=== PATIENT | male | born 1955 | race Caucasian/White ===

== ENCOUNTER → 2016-11-03 | Outpatient (CLI) | payer OTHER, MEDICARE ==
[~2016-11-03] MED LIST: /FENO48TA OR; ACTO30TA; ALBU17IN INH; ARTHROTEC PO; ASPI81TA63 PO; AVALIDE; AVALIDE PO; BACL10TA2 PO; CARV6.25 PO; COZA100T PO; DARV100T PO; FLOM5CAP PO; FOLI1TAB2 PO; FOLI5CAP PO; FOLI5INJ2 PO; FOLIPOW28; FURO20TA2 PO; GLUC1000; GLUC500T PO; HYDR25TA6 OR; HYDROCHLOROTHIAZIDE PO; KETO-28 OR; LEVO125T PO; LEVO150T6 PO; LEVOXYL25 MCG; LISIPOW PO; LODINE; METO25TA2 PO; NABU750T OR; NAPR500T; NEUR300C OR; PROPRANOLOL PO; PROS5TAB PO; RYZOLT; RYZOLT PO; SIMV40TA2 OR; VICO5TAB PO; VITA100066 PO; VITA500046 PO; VITA500047 PO; VITAMIN D50000 UNT OR; VYTO10TA5; ZANA4CAP; ZANA4CAP PO; ZETI10TA21 PO; ZOCO20TA; [UNRECOGNIZED DRUG - CODE]; [UNRECOGNIZED DRUG - OTHER]; [UNRECOGNIZED DRUG - OTHER]
--- NOTE | 2016-11-20 01:05 | ECWPNPC ---
PATIENT NAME: ACOSTA FARRELL : 1955 GENDER: MALE VISIT DATE: 11/03/2016 DISCHARGE DATE: 11/03/16 1248 VISIT LOCKED DATE TIME: PHYSICIAN: EUGENE BARTLETT RESOURCE: EUGENE BARTLETT REASON FOR APPOINTMENT 1. BACK HISTORY OF PRESENT ILLNESS HISTORY OF PRESENT ILLNESS: PAIN THE PATIENT DESCRIBES THE PAIN... FALL RISK SCREENING: SCREENING :NO FALLS IN THE PAST YEAR TODAY'S VISIT: NOTES: FOLLOWUP VISIT FOR LOW BACK. REPORTS AICREASED PAIN IN LOW BACK WITH NEW AREA OF PAIN ON LEFT SIDE OF BACK WITH RADIATING TO HIP AND LEG. PAIN IS DEBILITIATING. COME IN SHARP SHOOTING WAVES. RATES PAIN TODAY 8/10. DESCRIBES PAIN CONSTANT, ACHING , BURNING, SHARP AND STABBING, SHOOTING, TENDER AND THROBBING.. CURRENT MEDICATIONS TAKING VITAMIN D3 MAXIMUM STRENGTH 12389 CAPSULE 20764 UNITS ORALLY 2 5000 UNIT PER DAY [place] T[place] [address] [place]ITS PER WEEK TAKING LEVOTHYROXINE SODIUM 175 TABLET 1 TABLET/ 162.5 MCG ORALLY ONCE A DAY TAKING SIMVASTATIN 40 40MG TABLET ORAL DAILY TAKING ASPIRIN ADULT LOW STRENGTH 81 MG TABLET DELAYED RELEASE 1 TABLET ORALLY ONCE A DAY TAKING FINASTERIDE 5 MG TABLET 1 TABLET ORALLY ONCE A DAY TAKING FOLIC ACID 5 MG CAPSULE 1 CAPSULE ORALLY ONCE A DAY TAKING VENTOLIN HFA AEROSOL SOLUTION 2 PUFFS NEEDED INHALATION EVERY 4 HRS NEEDED TAKING FUROSEMIDE TABLET 1 TABLET ORALLY ONCE A DAY TAKING METOPROLOL TARTRATE 50 MG TABLET 1 TABLET WITH FOOD ORALLY BEFORE BEDTIME TAKING HYDRALAZINE HCL 25 MG TABLET 1 TABLET ORALLY TWICE A DAY TAKING HYDROCODONE-ACETAMINOPHEN 10-325 MG TABLET 2 TABLET NEEDED ORALLY MDD 6 EVERY 4 HOURS NEEDED, NOTES: MAX OF 6 PER DAY TAKING GABAPENTIN 300 MG CAPSULE 1 CAPSULE ORALLY BID TAKING TRAMADOL HCL ER 300 MG TABLET EXTENDED RELEASE 24 HOUR 1 TABLET ORALLY ONCE A DAY TAKING TIZANIDINE HCL 4 MG TABLET 1.5 TABLET ORALLY BID TAKING BACLOFEN 10 MG TABLET 2 TABS ORALLY BEFORE BEDTIME NOT-TAKING CARVEDILOL 12.5 MG TABLET 1 TABLET WITH FOOD ORALLY TWICE A DAY NOT-TAKING KEFLEX 500 MG CAPSULE 1 CAPSULE 1 HOUR PRIOR TO YOUR PROCEDURE ORALLY ONCE NOT-TAKING ZETIA 10 MG TABLET 1 TABLET ORALLY ONCE A DAY NOT-TAKING HYDROCHLOROTHIAZIDE 25 25 MG TABLET ORAL NOT-TAKING VALSARTAN-HYDROCHLOROTHIAZIDE 160-12.5 MG TABLET 1 TABLET ORALLY ONCE A DAY NOT-TAKING METOPROLOL SUCCINATE ER 25 MG TABLET EXTENDED RELEASE 24 HOUR 1 TABLET ORALLY ONCE A DAY MEDICATION LIST REVIEWED AND RECONCILED WITH THE PATIENT PAST MEDICAL HISTORY HYPERTENSION HYPOTHYROIDISM HX BACK PAIN HYPERLIPIDEMIA DM ( DIET CONTROLLED) ASTHMA (EXERCISE INDUSED) RENAL FAILURE ( CURRENTLY SEEING DR. ROME) ALLERGIES BACTRIM: SHAKES/TREMORS: ALLERGY ALL NSAIDS: RENAL FAILURE: CONTRAINDICATION SOCIAL HISTORY GENERAL: TOBACCO USE ARE YOU A:NONSMOKER LEARNING BARRIERS / SPECIAL NEEDS ORIENTED TO PLAN OF CARE: PATIENT, PAIN MANAGEMENT PATIENT, ORIENTED TO PLAN OF CARE: PATIENT, PAIN MANAGEMENT PATIENT. NEW PATIENT PAIN DIARY TODAY'S VISITNOTES FROM 0-10, WHAT LEVEL IS YOUR PAIN TODAY?0 PAIN CLINIC PFS, CLERGY, PUBLIC HEALTH REFERRALS PFS REFERRAL NEEDED?NO CLERGY REFERRAL NEEDED?NO PUBLIC HEALTH REFERRAL NEEDED?NO WAS THE PROVIDER NOTIFIED OF ANY PERTINENT INFO?NO PFS REFERRAL NEEDED?NO CLERGY REFERRAL NEEDED?NO PUBLIC HEALTH REFERRAL NEEDED?NO WAS THE PROVIDER NOTIFIED OF ANY PERTINENT INFO?NO REVIEW OF SYSTEMS CONSTITUTIONAL: ANY CHANGE IN YOUR MEDICAL CONDITION? NO . CHILLS NO . FEVER NO . INFECTION: DO YOU HAVE NEW INFECTIONS? NO . DO YOU HAVE HISTORY OF MRSA? NO . MUSCULOSKELETAL: ANY NEW PATTERNS OF PAIN OR NUMBNESS? NO . GASTROENTEROLOGY: ANY NEW CHANGE IN BOWEL CONTROL? NO . GENITOURINARY: ANY NEW CHANGE IN BLADDER CONTROL? NO . IS THERE A CHANCE YOU COULD BE ? NO . HEMATOLOGY/LYMPH: DO YOU TAKE ANY BLOOD THINNERS? (FOR EXAMPLE- COUMADIN, PLAVIX, AGGRENOX, PLATEL, PRADAXA, OR XARELTO) NO . WHEN WAS YOUR LAST DOSE? DATE: TIME: . NEUROLOGY: HAVE YOU FALLEN IN THE PAST 6 MONTHS? YES-NO INJURY. PT STATES &QUOT;LEG WENT OUT&QUOT; . ANY NEW EXTREMITY NUMBNESS OR WEAKNESS? NO . CARDIOLOGY: DO YOU HAVE A PACEMAKER OR DEFIBRILLATOR? NO . CHEST PAIN PATIENT DENIES . RESPIRATORY: HAVE YOU BEEN SICK IN THE PAST WEEK? NO . FEVER NO . FLU LIKE SYMPTOMS? NO . COUGH NO . INTEGUMENTARY: DO YOU HAVE ANY RASHES OR OPEN SORES? NO . ALLERGIC/IMMUNO: ARE YOU ALLERGIC TO SHELLFISH OR IV DYE? NO . ANY NEW ALLERGIES? NO . PSYCHIATRIC: DO YOU HAVE THOUGHTS OF HURTING YOURSELF OR SOMEONE ELSE? NO . ARE YOU ABUSED, NEGLECTED, OR IN AN UNSAFE ENVIRONMENT? NO . ENDOCRINOLOGY: ARE YOU DIABETIC? YES - BLOOD SUGARS STABLE . OTHER: DO YOU NEED ANY PRESCRIPTIONS? NO . IF YES, PLEASE LIST: ____ . ANY NEW PROBLEMS WITH YOUR MEDICATIONS? NO . WHEN DID YOU LAST EAT? ____ . WHEN DID YOU LAST DRINK? ____ . WHAT DID YOU LAST DRINK? ____ . NAME OF PERSON DRIVING YOU HOME? ____ . DO YOU HAVE ANY OTHER QUESTIONS OR CONCERNS NO . REVIEWED BY: PROVIDER: EUGENE SALAS . VITAL SIGNS WT 240 LBS, HT 71 IN, BMI 33.47 INDEX, BP 147/97 MM HG, HR 56 /MIN, RR 16 /MIN, TEMP 97.5 F, OXYGEN SAT % 98, NA INITIALS TL 1137, REVIEWED BY: MLFELEVATED BP 147/97, PT STATES HE IS A LOT OF PAIN TODAY- TL. EXAMINATION GENERAL EXAMINATION: PSYCHALERT , ORIENTED X 3 , APPROPRIATE MOOD AND AFFECT , APPEARS VERY UNCOMFORTABLE. LUNGS:CLEAR TO AUSCULTATION BILATERALLY. HEART:HEART RATE REGULAR, SLOW. MUSCULOSKELETAL:GAIT ANTALGIC WITH LIMP ON RIGHT. SLOW TO RISE TO STANDING POSITION. EXQUISITE TENDERNESS OVER RIGHT SACRAL ILIAC JOINT. TENDER OVER LUMBOSACRAL AXIS. TRIGGER POINTS:, ELICITED WITH PALPATION OVER LUMBAR PARAVERTEBRAL MUSCLES AND INTO THE SACRUM. RESTRICTION OF ROM IN THIS AREA. POINT TENDERNESS OVER TROCANTERS BILATERALLY. SOFT TISSUE SWELLING CONTINUES ALONG RIGHT SIDE OF LOW BACK AT THE SURGICAL INCISION. AREA TENDER TO TOUCH. . ASSESSMENTS LUMBAR POST-LAMINECTOMY SYNDROME - M96.1 (PRIMARY) LUMBAR RADICULAR PAIN - M54.16 CHRONIC PRESCRIPTION OPIATE USE - Z79.899 LUMBAR DISC DISPLACEMENT WITHOUT MYELOPATHY - M51.26 TREATMENT LUMBAR POST-LAMINECTOMY SYNDROME CAUDAL/LUMBAR EPIDURALEUGENE BARTLETT 11/03/2016 12:25:08 PM > NEW MRI. L4-5, L5 NERVE ROOT COMPRESSION BILATERALLY NOTES: CONTINE CURRENT MEDSUTOX TODAY. PROCEDURES PN WORKMANS' COMP OPINION IN YOUR OPINION, WAS THE INCIDENT THAT THE PATIENT DESCRIBED THE COMPETENT MEDICAL CAUSE OF THIS INJURY/ILLNESS? YES ARE THE PATIENT'S COMPLAINTS CONSISTENT WITH HIS/HER HISTORY OF THE INJURY/ILLNESS? YES IS THE PATIENT'S HISTORY OF THE INJURY/ILLNESS CONSISTENT WITH YOUR OBJECTIVE FINDING? YES WHAT IS THE PERCENTAGE OF TEMPORARY IMPAIRMENT? MODERATE TO MARKED = 66.7% IS THE PATIENT WORKING? NO DOCTOR ON SITE: NORMA TURNER MD PREVENTIVE MEDICINE PAIN CLINIC TEACHING: PROCEDURE TEACHING LUMBAR EPIDURAL. PROCEDURE CODES FA211 ESTABILISHED PATIENT [facility] CHARGE FOLLOW UP WC AFTER INJECTION (REASON: WC NEED PRIOR AUTH FOR LESI/CAUDAL APPROACH) ELECTRONICALLY SIGNED BY EFRAIN CORONA ON 11/17/2016 AT 01:14 PM EST DISCLAIMER : THIS IS A VISIT SUMMARY EXTRACTED FROM THE [employer] CHART. IT IS NOT A COPY OF THE [employer] PROGRESS NOTE. VIKY
== END ==
LOC: M PAIN 11:00
PROVIDERS: ATTEND Nurse Practitioner Family
DX: Z09 Encounter for follow-up examination after completed treatment for conditions other than malignant neoplasm (principal); M96.1 Postlaminectomy syndrome, not elsewhere classified; M54.16 Radiculopathy, lumbar region; M51.26 Other intervertebral disc displacement, lumbar region; E11.9 Type 2 diabetes mellitus without complications; I12.9 Hypertensive chronic kidney disease with stage 1 through stage 4 chronic kidney disease, or unspecified chronic kidney disease; N18.9 Chronic kidney disease, unspecified; E03.9 Hypothyroidism, unspecified; E78.5 Hyperlipidemia, unspecified; J45.990 Exercise induced bronchospasm; Z88.8 Allergy status to other drugs, medicaments and biological substances; Z79.82 Long term (current) use of aspirin; Z79.891 Long term (current) use of opiate analgesic

== ENCOUNTER → 2016-11-18 | Outpatient (CLI) | payer OTHER, MEDICARE ==
[~2016-11-18] MED LIST changes: +ISOVUE-M 300 61% 15ML VIAL (Q9967) As Ordered ONE; +LIDOCAINE 1% SDV INJ 30 ML VIAL As Ordered ONE; +methylPREDNISolone SUSP 40 MG/ML (DEPO-medrol) VIAL (J1030) As Ordered ONE
--- NOTE | 2016-11-18 14:07 | REP ---
PARTIAL LUMBAR SPINE SERIES: Three views. HISTORY: Lumbar epidural steroid injection for pain. 25 seconds of fluoroscopy time is reported. FINDINGS: A sequence of three fluoroscopically obtained intraprocedural spot radiographs of the lumbar spine document needle position and contrast injection associated with lumbar epidural injection procedure. Signed by Corwin Andrew MD 11/18/2016 02:08 P
--- NOTE | 2016-11-24 23:58 | ECWPNPC ---
PATIENT NAME: ACOSTA FARRELL : 1955 GENDER: MALE VISIT DATE: 11/18/2016 DISCHARGE DATE: 11/18/16 1329 VISIT LOCKED DATE TIME: PHYSICIAN: NORMA ROMERO RESOURCE: NORMA ROMERO REASON FOR APPOINTMENT 1. W/C LUMBAR EPIDURAL CURRENT MEDICATIONS TAKING VITAMIN D3 MAXIMUM STRENGTH 87575 CAPSULE 63335 UNITS ORALLY 2 5000 [place] PER [place] [address] [place]ITS PER WEEK, NOTES: TAKING LEVOTHYROXINE SODIUM 175 TABLET 1 TABLET/ 162.5 MCG ORALLY ONCE A DAY, NOTES: 11-17-16 AM TAKING SIMVASTATIN 40 40MG TABLET ORAL DAILY, NOTES: 11-17-162099 TAKING ASPIRIN ADULT LOW STRENGTH 81 MG TABLET DELAYED RELEASE 1 TABLET ORALLY ONCE A DAY, NOTES: 11-17-16 AM TAKING FINASTERIDE 5 MG TABLET 1 TABLET ORALLY ONCE A DAY, NOTES: 11-17-16 PM TAKING FOLIC ACID 5 MG CAPSULE 1 CAPSULE ORALLY ONCE A DAY, NOTES: 11-17-16 AM TAKING VENTOLIN HFA AEROSOL SOLUTION 2 PUFFS NEEDED INHALATION EVERY 4 HRS NEEDED, NOTES: NONE TAKING FUROSEMIDE TABLET 1 TABLET ORALLY ONCE A DAY, NOTES: 11-17-16 AM TAKING METOPROLOL TARTRATE 50 MG TABLET 1 TABLET WITH FOOD ORALLY BEFORE BEDTIME, NOTES: 11-17-162099 TAKING HYDRALAZINE HCL 25 MG TABLET 1 TABLET ORALLY TWICE A DAY, NOTES: 11-17-162099 TAKING HYDROCODONE-ACETAMINOPHEN 10-325 MG TABLET 2 TABLET NEEDED ORALLY MDD 6 EVERY 4 HOURS NEEDED, NOTES: 2 DAYS AGO TAKING GABAPENTIN 300 MG CAPSULE 1 CAPSULE ORALLY BID, NOTES: 11-17-162099 TAKING TRAMADOL HCL ER 300 MG TABLET EXTENDED RELEASE 24 HOUR 1 TABLET ORALLY ONCE A DAY, NOTES: 11-17-16 AM TAKING TIZANIDINE HCL 4 MG TABLET 1.5 TABLET ORALLY BID, NOTES: 11-17-161399 TAKING BACLOFEN 10 MG TABLET 2 TABS ORALLY BEFORE BEDTIME, NOTES: 11-17-162099 DISCONTINUED CARVEDILOL 12.5 MG TABLET 1 TABLET WITH FOOD ORALLY TWICE A DAY DISCONTINUED KEFLEX 500 MG CAPSULE 1 CAPSULE 1 HOUR PRIOR TO YOUR PROCEDURE ORALLY ONCE DISCONTINUED ZETIA 10 MG TABLET 1 TABLET ORALLY ONCE A DAY DISCONTINUED HYDROCHLOROTHIAZIDE 25 25 MG TABLET ORAL DISCONTINUED VALSARTAN-HYDROCHLOROTHIAZIDE 160-12.5 MG TABLET 1 TABLET ORALLY ONCE A DAY DISCONTINUED METOPROLOL SUCCINATE ER 25 MG TABLET EXTENDED RELEASE 24 HOUR 1 TABLET ORALLY ONCE A DAY MEDICATION LIST REVIEWED AND RECONCILED WITH THE PATIENT PAST MEDICAL HISTORY HYPERTENSION HYPOTHYROIDISM HX BACK PAIN HYPERLIPIDEMIA DM ( DIET CONTROLLED) ASTHMA (EXERCISE INDUSED) RENAL FAILURE ( CURRENTLY SEEING DR. ROME) ALLERGIES BACTRIM: SHAKES/TREMORS: ALLERGY ALL NSAIDS: RENAL FAILURE: CONTRAINDICATION VITAL SIGNS WT 240 LBS, HT 71 IN, BMI 33.47 INDEX, BP 145/91 MM HG, HR 86 /MIN, RR 16 /MIN, TEMP 96.0 F, OXYGEN SAT % 96, NA INITIALS TL 1043, REVIEWED BY: CM. ASSESSMENTS INTERVERTEBRAL DISC DISORDERS WITH RADICULOPATHY, LUMBAR REGION - M51.16 (PRIMARY) PROCEDURES PRE PROCEDURE DIAGNOSIS LUMBAR DISC DISORDER WITH RADICULOPATHY, LUMBAR RADICULOPATHY POST PROCEDURE DIAGNOSIS LUMBAR DISC DISORDER WITH RADICULOPATHY , LUMBAR RADICULOPATHY PROCEDURE L4-L5 EPIDURAL STEROID INJECTION UNDER FLUOROSCOPIC GUIDANCE SURGEON DR. NORMA ROMERO MANAGER CIVIL NONE ANESTHESIA LOCAL PRE PROCEDURE NOTE THE PATIENT HAS A HISTORY OF CHRONIC LOW BACK PAIN. I EVALUATE THE PATIENT AND REVIEWED THE CHART. I WENT OVER THE RISKS, ALTERNATIVES, AND BENEFITS ASSOCIATED WITH THIS PROCEDURE. THE PATIENT WOULD LIKE TO PROCEED AND GIVE CONSENT TO PERFORMED THE PROCEDURE. THE PATIENT DENIES UNEXPLAINABLE WEIGHT LOSS, FEVER, CHILLS, OR NEW CHANGES IN URINARY OR BOWEL CONTROL. DESCRIPTION OF PROCEDURE THE PATIENT WAS BROUGHT TO THE PROCEDURE ROOM AND PLACED IN THE PRONE POSITION. THE LUMBOSACRAL AREA WAS CLEANED WITH BETADINE SOLUTION AND DRAPED ASEPTICALLY. THE PROCEDURE WAS DONE UNDER STERILE CONDITIONS. I CHECKED LATERALITY AND THE LEVEL WHERE THE PROCEDURE WAS GOING TO BE PERFORMED WITH THE PATIENT AND THE SUPPORTING STAFF AT THE MOMENT OF THE TIME OUT IN THE PROCEDURE ROOM. UNDER FLUOROSCOPIC GUIDANCE, THE TARGET POINT WAS SELECTED AT THE INTERLAMINAR LEVEL OF L4-L5. LIDOCAINE WAS USED TO NUMB THE SKIN AND THE SUBCUTANEOUS TISSUE BELOW IT. EPIDURAL TUOHY NEEDLE, 17-GAUGE, WAS ADVANCED UNDER FLUOROSCOPIC GUIDANCE AND FOLLOWING PATIENT FEEDBACK UNTIL THE EPIDURAL SPACE WAS REACHED, 7 CM DEEP INTO THE SKIN BY THE LOSS OF RESISTANCE TECHNIQUE. ISOVUE M DYE 30%, 0.25 ML, WAS INJECTED SHOWING ADEQUATE SPREAD OF THE DYE. THEN, A SOLUTION OF 3 ML OF NORMAL SALINE WITH DEPO-MEDROL 60 MG WAS INJECTED SLOWLY FOLLOWING PATIENT FEEDBACK. THERE WAS NO EVIDENCE OF BLOOD, PARESTHESIA OR CEREBROSPINAL FLUID DURING THE PROCEDURE. THE PATIENT WAS SENT TO THE RECOVERY ROOM. THE PATIENT WAS MOVING THE EXTREMITIES AND DOING WELL. THERE WAS NO COMPLICATION DURING THE PROCEDURE. FLUOROSCOPY TIME WAS 25 SECONDS. POST PROCEDURE NOTE THE PATIENT WILL BE SEEN IN A FOLLOW UP IN THE NEXT FEW WEEKS. INSTRUCTIONS WERE GIVEN, QUESTIONS WERE ANSWERED, AND THE PATIENT EXPRESSED UNDERSTANDING AND AGREES WITH THE PLAN. INSTRUCTIONS WERE GIVEN, QUESTIONS WERE ANSWERED, PATIENT REPORTS UNDERSTANDING AND AGREES WITH THE PLAN. I, BRIDGETTE RUEDA, DOCUMENTED THE ABOVE INFORMATION ACTING A SCRIBE FOR DR. ROMERO. I HAVE REVIEWED THE ABOVE DOCUMENT, WRITTEN BY BRIDGETTE RUEDA SCRIBEnrique AND I VERIFY THAT IT IS ACCURATE. PN WORKMANS' COMP OPINION IN YOUR OPINION, WAS THE INCIDENT THAT THE PATIENT DESCRIBED THE COMPETENT MEDICAL CAUSE OF THIS INJURY/ILLNESS? YES ARE THE PATIENT'S COMPLAINTS CONSISTENT WITH HIS/HER HISTORY OF THE INJURY/ILLNESS? YES IS THE PATIENT'S HISTORY OF THE INJURY/ILLNESS CONSISTENT WITH YOUR OBJECTIVE FINDING? YES WHAT IS THE PERCENTAGE OF TEMPORARY IMPAIRMENT? MODERATE TO MARKED = 66.7% IS THE PATIENT WORKING? NO DOCTOR ON SITE: NORMA TURNER MD PROCEDURE CODES 44817 LUMBAR/SACRAL W/ IMAGING 6045F RADXPS IN END [id number] PXD FOLLOW UP 3 WEEKS ELECTRONICALLY SIGNED BY NORMA ROMERO MD ON 11/24/2016 AT 08:46 PM EST DISCLAIMER : THIS IS A VISIT SUMMARY EXTRACTED FROM THE [employer] CHART. IT IS NOT A COPY OF THE [employer] PROGRESS NOTE. MTDD
== END ==
LOC: M PAIN 11:10
PROVIDERS: ATTEND Anesthesiology
DX: G89.29 Other chronic pain (principal); M51.16 Intervertebral disc disorders with radiculopathy, lumbar region; E11.9 Type 2 diabetes mellitus without complications; N18.9 Chronic kidney disease, unspecified; I12.9 Hypertensive chronic kidney disease with stage 1 through stage 4 chronic kidney disease, or unspecified chronic kidney disease; E03.9 Hypothyroidism, unspecified; E78.5 Hyperlipidemia, unspecified; Z88.1 Allergy status to other antibiotic agents; Z88.5 Allergy status to narcotic agent; Z79.1 Long term (current) use of non-steroidal anti-inflammatories (NSAID); Z79.891 Long term (current) use of opiate analgesic; Z79.899 Other long term (current) drug therapy
CPT/HCPCS: 62323; J1030; Q9967

== ENCOUNTER → 2016-12-29 | Outpatient (CLI) | payer MEDICARE ==
[~2016-12-29] VITALS: Ht 180.3 cm; Wt 106.6 kg
[~2016-12-29] MED LIST changes: +DRIS50002 PO; +HYDR50TA PO; -ISOVUE-M 300 61% 15ML VIAL (Q9967) As Ordered ONE; +LEVO150T7 PO; -LIDOCAINE 1% SDV INJ 30 ML VIAL As Ordered ONE; +NEUR300C PO; +NS 1,000 ML IV SCH; +PROPOFOL 200 MG/20 ML VIAL As Ordered ONE; -methylPREDNISolone SUSP 40 MG/ML (DEPO-medrol) VIAL (J1030) As Ordered ONE
--- NOTE | 2016-12-29 09:17 | ROOR ---
Patient Name: Jasper Orta Procedure Date: 12/29/2016 8:50 AM Date of : 1955 Age: 61 Room: [facility] Gender: Male Note Status: Finalized Procedure: Colonoscopy to Cecum + Biopsy Polypectomy Indications: Screening for colorectal malignant neoplasm, Last colonoscopy: 2004 Providers: Harris Rao MD Referring MD: REMI STANLEY MD Requesting Provider: Medicines: Monitored Anesthesia Care Complications: No immediate complications. Procedure: Pre-Anesthesia Assessment: - The heart rate, respiratory rate, oxygen saturations, blood pressure, adequacy of pulmonary ventilation, and response to care were monitored throughout the procedure. The Colonoscope was introduced through the anus and advanced to the cecum, identified by appendiceal orifice and ileocecal valve. The colonoscopy was performed without difficulty. The patient tolerated the procedure well. The quality of the bowel preparation was good. Findings: The perianal and digital rectal examinations were normal. Non-bleeding internal hemorrhoids were found during retroflexion. The hemorrhoids were small and Grade I (internal hemorrhoids that do not prolapse). Multiple small and large-mouthed diverticula were found in the recto-sigmoid colon, sigmoid colon and descending colon. The exam was otherwise without abnormality on direct and retroflexion views. A small polyp was found in the cecum. The polyp was sessile. The polyp was removed with a cold biopsy forceps. Resection and retrieval were complete. Impression: - Non-bleeding internal hemorrhoids. - Diverticulosis in the recto-sigmoid colon, in the sigmoid colon and in the descending colon. - The examination was otherwise normal on direct and retroflexion views. - One small polyp in the cecum, removed with a cold biopsy forceps. Resected and retrieved. - The exam was otherwise normal to the cecum. Recommendation: - Patient has a contact number available for emergencies. The signs and symptoms of potential delayed complications were discussed with the patient. Return to normal activities tomorrow. Written discharge instructions were provided to the patient. - High fiber diet. - Discharge patient to home. - Continue present medications. - Await pathology results. - Telephone GI clinic for pathology results in 1 week. - Repeat colonoscopy for surveillance based on pathology results. - Return to referring physician. - The findings and recommendations were discussed with the patient's family. Harris Rao MD Harris Rao MD 12/29/2016 9:16:39 AM This report has been signed electronically. Number of Addenda: 0 Note Initiated On: 12/29/2016 8:50 AM Estimated Blood Loss: Estimated blood loss: none.
[2016-12-29 09:30] VITALS: BP 174/100
== END | disposition home or self-care (01) ==
LOC: M OPP 07:45
PROVIDERS: ATTEND Internal Medicine Gastroenterology
DX: Z12.11 Encounter for screening for malignant neoplasm of colon (principal); K64.0 First degree hemorrhoids; K57.30 Diverticulosis of large intestine without perforation or abscess without bleeding; D12.0 Benign neoplasm of cecum; I10 Essential (primary) hypertension; E78.00 Pure hypercholesterolemia, unspecified; E11.9 Type 2 diabetes mellitus without complications; E03.9 Hypothyroidism, unspecified; G98.8 Other disorders of nervous system; J45.909 Unspecified asthma, uncomplicated; Z86.73 Personal history of transient ischemic attack (TIA), and cerebral infarction without residual deficits; F17.200 Nicotine dependence, unspecified, uncomplicated; F17.228 Nicotine dependence, chewing tobacco, with other nicotine-induced disorders; Z79.82 Long term (current) use of aspirin; Z79.899 Other long term (current) drug therapy; Z88.8 Allergy status to other drugs, medicaments and biological substances; Z88.2 Allergy status to sulfonamides

== ENCOUNTER → 2016-12-30 | Outpatient (CLI) | payer OTHER, MEDICARE ==
[~2016-12-30] MED LIST changes: -NS 1,000 ML IV SCH; -PROPOFOL 200 MG/20 ML VIAL As Ordered ONE
--- NOTE | 2017-01-10 23:32 | ECWPNPC ---
PATIENT NAME: ACOSTA FARRELL : 1955 GENDER: MALE VISIT DATE: 12/30/2016 DISCHARGE DATE: 12/30/16 1456 VISIT LOCKED DATE TIME: PHYSICIAN: NORMA ROMERO RESOURCE: NORMA ROMERO REASON FOR APPOINTMENT 1. WC, BACK HISTORY OF PRESENT ILLNESS HISTORY OF PRESENT ILLNESS: PAIN THE PATIENT DESCRIBES THE PAIN ... , THE PATIENT DESCRIBES THE PAIN ... . 61 YEAR OLD MALE PATIENT WITH HISTORY OF CHRONIC BACK PAIN. PATIENT DESCRIBES THE PAIN ACHING, BURNING, SHARP, STABBING, TENDER, THROBBING, SORE, SHOOTING, AND HAVING IT ALL THE TIME WITH A PAIN SCORE OF 6/10 ON TODAY'S VISIT. PATIENT WAS INJURED IN A WORKING RELATED INJURY ON 01-10-1985 WHEN HE WAS ROLLING BRAKE AND INJURED HIS BACK. PATIENT RECEIVED A LUMBAR EPIDURAL ON 11-18-2016 AND STATES THAT HE RECEIVED ONE MONTH OF GOOD PAIN RELIEF AND SAW A 50 PERCENT DECREASE IN HIS PAIN. PATIENT REPORTS THAT HE DOES HAVE DIFFICULTIES SLEEPING. PATIENT REPORTS THAT SOMETIMES HE HAS RADIATING PAIN DOWN BOTH LEGS FROM HIS BACK AND TODAY THE RADIATING PAIN IS DOING DOWN THE RIGHT LEG. PATIENT REPORTS THAT TIZANIDINE AND BACLOFEN HELP TO KEEP HIM MOBILE AND TAKE SOME OF THE PAIN AWAY. PATIENT DENIES UNEXPLAINABLE WEIGHT LOSS, FEVER, CHILLS, NEW CHANGES ON HIS URINARY OR BOWEL CONTROL. FALL RISK SCREENING: SCREENING :NO FALLS IN THE PAST YEAR :NO FALLS IN THE PAST YEAR SCREENING :NO FALLS IN THE PAST YEAR :NO FALLS IN THE PAST YEAR CURRENT MEDICATIONS TAKING VITAMIN D3 MAXIMUM STRENGTH 5000 UNIT CAPSULE 82852 UNITS ORALLY 2 34875 UNIT CAPSULES TWICE WEEKLY, NOTES: 7AM TAKING LEVOTHYROXINE SODIUM 175 TABLET 1 TABLET/ 162.5 MCG ORALLY ONCE A DAY, NOTES: 11-17-16 AM TAKING SIMVASTATIN 40 40MG TABLET ORAL DAILY, NOTES: 11-17-16 2100 TAKING ASPIRIN ADULT LOW STRENGTH 81 MG TABLET DELAYED RELEASE 1 TABLET ORALLY ONCE A DAY, NOTES: 11-17-16 AM TAKING FINASTERIDE 5 MG TABLET 1 TABLET ORALLY ONCE A DAY, NOTES: 11-17-16 PM TAKING FOLIC ACID 5 MG CAPSULE 1 CAPSULE ORALLY ONCE A DAY, NOTES: 11-17-16 AM TAKING VENTOLIN HFA AEROSOL SOLUTION 2 PUFFS NEEDED INHALATION EVERY 4 HRS NEEDED, NOTES: NONE TAKING FUROSEMIDE 40 MG TABLET 1 TABLET ORALLY ONCE A DAY, NOTES: 11-17-16 AM TAKING HYDRALAZINE HCL 50 MG TABLET 1 TABLET ORALLY TWICE A DAY, NOTES: 11-17-162099 TAKING HYDROCODONE-ACETAMINOPHEN 10-325 MG TABLET 2 TABLET NEEDED ORALLY MDD 6 EVERY 4 HOURS NEEDED, NOTES: 2 DAYS AGO TAKING GABAPENTIN 300 MG CAPSULE 1 CAPSULE ORALLY BID, NOTES: 11-17-162099 TAKING TRAMADOL HCL ER 300 MG TABLET EXTENDED RELEASE 24 HOUR 1 TABLET ORALLY ONCE A DAY, NOTES: 11-17-16 AM TAKING TIZANIDINE HCL 4 MG TABLET 1.5 TABLET ORALLY BID, NOTES: 11-17-161399 TAKING BACLOFEN 10 MG TABLET 2 TABS ORALLY BEFORE BEDTIME, NOTES: 11-17-162099 DISCONTINUED METOPROLOL TARTRATE 50 MG TABLET 1 TABLET WITH FOOD ORALLY BEFORE BEDTIME, NOTES: 11-17-162099 MEDICATION LIST REVIEWED AND RECONCILED WITH THE PATIENT PAST MEDICAL HISTORY HYPERTENSION HYPOTHYROIDISM HX BACK PAIN HYPERLIPIDEMIA DM ( DIET CONTROLLED) ASTHMA (EXERCISE INDUSED) RENAL FAILURE ( CURRENTLY SEEING DR. ROME) ALLERGIES BACTRIM: SHAKES/TREMORS: ALLERGY ALL NSAIDS: RENAL FAILURE: CONTRAINDICATION SURGICAL HISTORY NO SURGICAL HISTORY DOCUMENTED. FAMILY HISTORY NO FAMILY HISTORY DOCUMENTED. SOCIAL HISTORY GENERAL: TOBACCO USE ARE YOU A:NONSMOKER ARE YOU A:NONSMOKER LEARNING BARRIERS / SPECIAL NEEDS ORIENTED TO PLAN OF CARE: PATIENT, PAIN MANAGEMENT PATIENT, ORIENTED TO PLAN OF CARE: PATIENT, PAIN MANAGEMENT PATIENT, ORIENTED TO PLAN OF CARE: PATIENT, PAIN MANAGEMENT PATIENT, ORIENTED TO PLAN OF CARE: PATIENT, PAIN MANAGEMENT PATIENT. NEW PATIENT PAIN DIARY TODAY'S VISITNOTES FROM 0-10, WHAT LEVEL IS YOUR PAIN TODAY?0 TODAY'S VISITNOTES FROM 0-10, WHAT LEVEL IS YOUR PAIN TODAY?0 PAIN CLINIC PFS, CLERGY, PUBLIC HEALTH REFERRALS PFS REFERRAL NEEDED?NO CLERGY REFERRAL NEEDED?NO PUBLIC HEALTH REFERRAL NEEDED?NO WAS THE PROVIDER NOTIFIED OF ANY PERTINENT INFO?NO PFS REFERRAL NEEDED?NO CLERGY REFERRAL NEEDED?NO PUBLIC HEALTH REFERRAL NEEDED?NO WAS THE PROVIDER NOTIFIED OF ANY PERTINENT INFO?NO PFS REFERRAL NEEDED?NO CLERGY REFERRAL NEEDED?NO PUBLIC HEALTH REFERRAL NEEDED?NO WAS THE PROVIDER NOTIFIED OF ANY PERTINENT INFO?NO PFS REFERRAL NEEDED?NO CLERGY REFERRAL NEEDED?NO PUBLIC HEALTH REFERRAL NEEDED?NO WAS THE PROVIDER NOTIFIED OF ANY PERTINENT INFO?NO HOSPITALIZATION/MAJOR DIAGNOSTIC PROCEDURE 1996 SC 2000 REVIEW OF SYSTEMS CONSTITUTIONAL: ANY CHANGE IN YOUR MEDICAL CONDITION? YES PT WAS HAVING DIZZY SPELLS, WAS FOUND TO HAVE A LOW HEART RATE AND &QUOT;WAS SKIPPING BEATS&QUOT;. BETA B[place] WAS DISCONTINUED, TO HAVE ECHO AT DR. DUPREE'S OFFICE&NBSP;. CHILLS &NBSP;&NBSP; NO&NBSP;. FEVER &NBSP;&NBSP; NO&NBSP;. INFECTION: DO YOU HAVE NEW INFECTIONS? NO . DO YOU HAVE HISTORY OF MRSA? NO . MUSCULOSKELETAL: ANY NEW PATTERNS OF PAIN OR NUMBNESS? YES PT HAD LESI 11/18/16 WITH GOOD RESULTS LASTING ABOUT A MONTH. NOW REPORTS HIS PAIN IS INCREASING BACK TO PRE-PROCEDURE LEVEL. . GASTROENTEROLOGY: ANY NEW CHANGE IN BOWEL CONTROL? NO . GENITOURINARY: ANY NEW CHANGE IN BLADDER CONTROL? NO . IS THERE A CHANCE YOU COULD BE ? NO . HEMATOLOGY/LYMPH: DO YOU TAKE ANY BLOOD THINNERS? (FOR EXAMPLE- COUMADIN, PLAVIX, AGGRENOX, PLATEL, PRADAXA, OR XARELTO) NO . WHEN WAS YOUR LAST DOSE? DATE: TIME: . NEUROLOGY: HAVE YOU FALLEN IN THE PAST 6 MONTHS? NO . ANY NEW EXTREMITY NUMBNESS OR WEAKNESS? NO . CARDIOLOGY: DO YOU HAVE A PACEMAKER OR DEFIBRILLATOR? NO . RESPIRATORY: HAVE YOU BEEN SICK IN THE PAST WEEK? NO . FEVER NO . FLU LIKE SYMPTOMS? NO . COUGH NO . INTEGUMENTARY: DO YOU HAVE ANY RASHES OR OPEN SORES? NO . ALLERGIC/IMMUNO: ARE YOU ALLERGIC TO SHELLFISH OR IV DYE? NO . ANY NEW ALLERGIES? NO . PSYCHIATRIC: DO YOU HAVE THOUGHTS OF HURTING YOURSELF OR SOMEONE ELSE? NO . ARE YOU ABUSED, NEGLECTED, OR IN AN UNSAFE ENVIRONMENT? NO . ENDOCRINOLOGY: ARE YOU DIABETIC? YES . OTHER: DO YOU NEED ANY PRESCRIPTIONS? NO . IF YES, PLEASE LIST: ____, . ANY NEW PROBLEMS WITH YOUR MEDICATIONS? NO . WHEN DID YOU LAST EAT? ____ . WHAT DID YOU LAST DRINK? ____, . NAME OF PERSON DRIVING YOU HOME? ____, . DO YOU HAVE ANY OTHER QUESTIONS OR CONCERNS NO . REVIEWED BY: PROVIDER: NORMA ROMERO MD . VITAL SIGNS WT 237.6 LBS, HT 71 IN, BMI 33.13 INDEX, BP 132/72 MM HG, HR 76 /MIN, RR 18 /MIN, TEMP 97.5 F, OXYGEN SAT % 98%, NA INITIALS SC 13:57. EXAMINATION : PATIENT IS ALERT O X 3 AND COOPERATIVE. PATIENT AMBULATES WITH A LIMP ON THE LEFT LEG. PATIENT IS ABLE TO FLEX HIS BACK TO 50 DEGREES AND EXTEND HIS BACK TO 5 DEGREES WITH DISCOMFORT. THERE IS TENDERNESS IN THE LOW BACK PARASPINAL MUSCLE GROUP WITH BANDS OF TISSUE, RESTRICTION OF MOVEMENT, AND PRESENCE OF TRIGGER POINTS. MRI OF THE LUMBAR SPINE DONE ON 10-06-2016 SHOWS DISC BULGES AND FACET ARTHROPATHY CHANGES. 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) DRUG THERAPY - Z79.899 TREATMENT LUMBAR POST-LAMINECTOMY SYNDROME REFILL GABAPENTIN CAPSULE, 300 MG, 1 CAPSULE, ORALLY, BID FOR PAIN, 30 DAY(S), 60, REFILLS 2, NOTES: 11-17-16 2100 REFILL HYDROCODONE-ACETAMINOPHEN TABLET, 10-325 MG, 2 TABLET NEEDED, ORALLY MDD 6, EVERY 4 HOURS NEEDED, 30 DAYS, 120, REFILLS 0, NOTES: 2 DAYS AGO REFILL TRAMADOL HCL ER TABLET EXTENDED RELEASE 24 HOUR, 300 MG, 1 TABLET, ORALLY FOR PAIN, ONCE A DAY, 30 DAY(S), 30 TABLET, REFILLS 0, NOTES: 11-17-16 AM REFILL TIZANIDINE HCL TABLET, 4 MG, 1.5 TABLET, ORALLY, BID, 30 DAY(S), 90 TABLET, REFILLS 2, NOTES: 11-17-16 1400 NOTES: WE DISCUSSED SEVERAL ISSUES WITH MR. FARRELL'S PAIN MANAGEMENT CASE. DUE TO THE SUCCESS OF THE PREVIOUS INJECTION, PATIENT IS A CANDIDATE FOR ANOTHER LESI, WE DISCUSSED THE RISK, BENEFITS, AND ALTERNATIVES AND THE PATIENT WOULD LIKE TO PROCEED. PATIENT WILL BE BOOKED PENDING APPROVAL. PATIENT WILL RECEIVE A REFILL OF THE GABAPENTIN, HYDROCODONE, TRAMADOL FOR SOMATIC PAIN, TIZANIDINE FOR SPASTICITY, AND BACLOFEN TODAY. I WOULD LIKE TO INCREASE THE PATIENT'S GABAPENTIN DOSAGE PENDING CONVERSATION WITH DR. URIBE. PATIENT DID NOT BRING HIS MEDICATION BOTTLES IN TODAY AND WAS ADVISED TO BRING THEM FOR EVERY VISIT. UTOX DONE ON 11-07-2016 SHOWS CONCORDANT RESULTS.. PATIENT TO FOLLOW UP WITH ME IN 5 WEEKS. INSTRUCTIONS WERE GIVEN, QUESTIONS WERE ANSWERED, PATIENT REPORTS UNDERSTANDING AND AGREES WITH THE PLAN. I, BRIDGETTE RUEDA, DOCUMENTED THE ABOVE INFORMATION ACTING A SCRIBE FOR DR. ROMERO. I HAVE REVIEWED THE ABOVE DOCUMENT, WRITTEN BY BRIDGETTE RUEDA SCRIBE AND I VERIFY THAT IT IS ACCURATE. OTHERS REFILL BACLOFEN TABLET, 10 MG, 2 TABS, ORALLY, BEFORE BEDTIME, 30 DAY(S), 60, REFILLS 2, NOTES: 11-17-162099 PROCEDURES PN WORKMANS' COMP OPINION IN YOUR OPINION, WAS THE INCIDENT THAT THE PATIENT DESCRIBED THE COMPETENT MEDICAL CAUSE OF THIS INJURY/ILLNESS? YES ARE THE PATIENT'S COMPLAINTS CONSISTENT WITH HIS/HER HISTORY OF THE INJURY/ILLNESS? YES IS THE PATIENT'S HISTORY OF THE INJURY/ILLNESS CONSISTENT WITH YOUR OBJECTIVE FINDING? YES WHAT IS THE PERCENTAGE OF TEMPORARY IMPAIRMENT? MODERATE TO MARKED = 66.7% IS THE PATIENT WORKING? NO DOCTOR ON SITE: NORMA TURNER MD PREVENTIVE MEDICINE PAIN CLINIC TEACHING: PROCEDURE TEACHING TEACHING HANDOUTS FOR YANA GIVEN AND REVIEWED WITH PATIENT. PROCEDURE CODES FA211 ESTABILISHED PATIENT [facility] FACILITY CHARGE G8730 PAIN ASSESS POS TOOL F/U PLAN DOC G8427 DOC MEDS VERIFIED W/PT OR RE DISPOSITION & COMMUNICATION FOLLOW UP 5 WEEKS ELECTRONICALLY SIGNED BY NORMA ROMERO MD ON 01/10/2017 AT 08:57 PM EDT DISCLAIMER : THIS IS A VISIT SUMMARY EXTRACTED FROM THE [employer] CHART. IT IS NOT A COPY OF THE [employer] PROGRESS NOTE. VIKY
== END ==
LOC: M PAIN 14:00
PROVIDERS: ATTEND Anesthesiology
DX: Z09 Encounter for follow-up examination after completed treatment for conditions other than malignant neoplasm (principal); G89.29 Other chronic pain; M96.1 Postlaminectomy syndrome, not elsewhere classified; M79.1 Myalgia; M51.16 Intervertebral disc disorders with radiculopathy, lumbar region; M51.17 Intervertebral disc disorders with radiculopathy, lumbosacral region; M47.816 Spondylosis without myelopathy or radiculopathy, lumbar region; M47.817 Spondylosis without myelopathy or radiculopathy, lumbosacral region; I12.9 Hypertensive chronic kidney disease with stage 1 through stage 4 chronic kidney disease, or unspecified chronic kidney disease; N18.9 Chronic kidney disease, unspecified; E03.9 Hypothyroidism, unspecified; E78.5 Hyperlipidemia, unspecified; E11.9 Type 2 diabetes mellitus without complications; J45.990 Exercise induced bronchospasm; Z88.1 Allergy status to other antibiotic agents; Z88.6 Allergy status to analgesic agent; Z79.82 Long term (current) use of aspirin; Z79.891 Long term (current) use of opiate analgesic

== ENCOUNTER → 2017-02-03 | Outpatient (CLI) | payer OTHER, MEDICARE ==
--- NOTE | 2017-02-16 00:31 | ECWPNPC ---
PATIENT NAME: ACOSTA FARRELL : 1955 GENDER: MALE VISIT DATE: 02/03/2017 DISCHARGE DATE: 02/03/17 1519 VISIT LOCKED DATE TIME: PHYSICIAN: NORMA ROMERO RESOURCE: NORMA ROMERO REASON FOR APPOINTMENT 1. W/C BACK HISTORY OF PRESENT ILLNESS HISTORY OF PRESENT ILLNESS: PAIN THE PATIENT DESCRIBES THE PAIN... 61 YEAR OLD MALE PATIENT WITH HISTORY OF CHRONIC BACK PAIN. PATIENT DESCRIBES THE PAIN ACHING, BURNING, SHARP, STABBING, TENDER, THROBBING, SORE, SHOOTING, AND HAVING IT ALL THE TIME WITH A PAIN SCORE OF 8/10. 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 PATIENT REPORTS THAT HE HAS NOT HAD ANY BACK SURGERIES, THE DOCTOR INFORMED HIM AT THIS TIME IT WOULD BE BEST TO WAIT. PATIENT REPORTS THAT HE HAS TRIED PHYSICAL THERAPY IN THE PAST WITHOUT ANY SUCCESS IN PAIN RELIEF. PATIENT REPORTS THAT HIS BACK HURTS THE MOST TODAY AND SOMETIMES HE HAS RADIATING PAIN DOWN THE LEGS. PATIENT REPORTS THAT THE LAST INJECTION IS NO LONGER HELPING WITH HIS PAIN. PATIENT DENIES UNEXPLAINABLE WEIGHT LOSS, FEVER, CHILLS, NEW CHANGES ON HIS URINARY OR BOWEL CONTROL. FALL RISK SCREENING: SCREENING :NO FALLS IN THE PAST YEAR CURRENT MEDICATIONS TAKING BACLOFEN 10 MG TABLET 2 TABS ORALLY BEFORE BEDTIME, NOTES: 11-17-162099 TAKING GABAPENTIN 300 MG CAPSULE 1 CAPSULE ORALLY BID FOR PAIN, NOTES: 11-17-162099 TAKING HYDROCODONE-ACETAMINOPHEN 10-325 MG TABLET 2 TABLET NEEDED ORALLY MDD 6 EVERY 4 HOURS NEEDED, NOTES: 2 DAYS AGO TAKING TRAMADOL HCL ER 300 MG TABLET EXTENDED RELEASE 24 HOUR 1 TABLET ORALLY FOR PAIN ONCE A DAY, NOTES: 11-17-16 AM TAKING TIZANIDINE HCL 4 MG TABLET 1.5 TABLET ORALLY BID, NOTES: 11-17-16 1400 TAKING VITAMIN D3 MAXIMUM STRENGTH 5000 UNIT CAPSULE 48096 UNITS ORALLY 2 16447 UNIT CAPSULES TWICE WEEKLY, NOTES: 7AM TAKING LEVOTHYROXINE SODIUM 88 MCG TABLET 162.5 MCG ORALLY ONCE A DAY, NOTES: 11-17-16 AM TAKING SIMVASTATIN 40 40MG TABLET ORAL DAILY, NOTES: 11-17-162099 TAKING ASPIRIN ADULT LOW STRENGTH 81 MG TABLET DELAYED RELEASE 1 TABLET ORALLY ONCE A DAY, NOTES: 11-17-16 AM TAKING FINASTERIDE 5 MG TABLET 1 TABLET ORALLY ONCE A DAY, NOTES: 11-17-16 PM TAKING FOLIC ACID 5 MG CAPSULE 1 CAPSULE ORALLY ONCE A DAY, NOTES: 11-17-16 AM TAKING VENTOLIN HFA AEROSOL SOLUTION 2 PUFFS NEEDED INHALATION EVERY 4 HRS NEEDED, NOTES: NONE TAKING FUROSEMIDE 40 MG TABLET 1 TABLET ORALLY ONCE A DAY, NOTES: 11-17-16 AM TAKING HYDRALAZINE HCL 50 MG TABLET 1 TABLET ORALLY THREE TIMES A DAY, NOTES: 11-17-16 2100 MEDICATION LIST REVIEWED AND RECONCILED WITH THE PATIENT PAST MEDICAL HISTORY HYPERTENSION HYPOTHYROIDISM HX BACK PAIN HYPERLIPIDEMIA DM ( DIET CONTROLLED) ASTHMA (EXERCISE INDUSED) RENAL FAILURE ( CURRENTLY SEEING DR. ROME) ALLERGIES BACTRIM: SHAKES/TREMORS: ALLERGY ALL NSAIDS: RENAL FAILURE: CONTRAINDICATION SURGICAL HISTORY NO SURGICAL HISTORY DOCUMENTED. FAMILY HISTORY NO FAMILY HISTORY DOCUMENTED. SOCIAL HISTORY GENERAL: PAIN CLINIC PFS, CLERGY, PUBLIC HEALTH REFERRALS CLERGY REFERRAL NEEDED?NO WAS THE PROVIDER NOTIFIED OF ANY PERTINENT INFO?NO PFS REFERRAL NEEDED?NO PUBLIC HEALTH REFERRAL NEEDED?NO PATIENT: ____. HOSPITALIZATION/MAJOR DIAGNOSTIC PROCEDURE TIA 1996 UT 2000 REVIEW OF SYSTEMS CONSTITUTIONAL: ANY CHANGE IN YOUR MEDICAL CONDITION? NO . CHILLS NO . FEVER NO . INFECTION: DO YOU HAVE NEW INFECTIONS? NO . DO YOU HAVE HISTORY OF MRSA? NO . MUSCULOSKELETAL: ANY NEW PATTERNS OF PAIN OR NUMBNESS? NO . GASTROENTEROLOGY: ANY NEW CHANGE IN BOWEL CONTROL? NO . GENITOURINARY: ANY NEW CHANGE IN BLADDER CONTROL? NO . IS THERE A CHANCE YOU COULD BE ? NO . HEMATOLOGY/LYMPH: DO YOU TAKE ANY BLOOD THINNERS? (FOR EXAMPLE- COUMADIN, PLAVIX, AGGRENOX, PLATEL, PRADAXA, OR XARELTO) NO . WHEN WAS YOUR LAST DOSE? DATE: TIME: . NEUROLOGY: HAVE YOU FALLEN IN THE PAST 6 MONTHS? NO . ANY NEW EXTREMITY NUMBNESS OR WEAKNESS? NO . CARDIOLOGY: DO YOU HAVE A PACEMAKER OR DEFIBRILLATOR? NO . RESPIRATORY: HAVE YOU BEEN SICK IN THE PAST WEEK? NO . FEVER NO . FLU LIKE SYMPTOMS? NO . COUGH NO . INTEGUMENTARY: DO YOU HAVE ANY RASHES OR OPEN SORES? NO . ALLERGIC/IMMUNO: ARE YOU ALLERGIC TO SHELLFISH OR IV DYE? NO . ANY NEW ALLERGIES? NO . PSYCHIATRIC: DO YOU HAVE THOUGHTS OF HURTING YOURSELF OR SOMEONE ELSE? NO . ARE YOU ABUSED, NEGLECTED, OR IN AN UNSAFE ENVIRONMENT? NO . ENDOCRINOLOGY: ARE YOU DIABETIC? YES . OTHER: DO YOU NEED ANY PRESCRIPTIONS? YES . IF YES, PLEASE LIST: ____TIZANIDINE, TRAMADOL, GABAPENTIN . ANY NEW PROBLEMS WITH YOUR MEDICATIONS? NO . WHEN DID YOU LAST EAT? ____ . WHEN DID YOU LAST DRINK? ____ . WHAT DID YOU LAST DRINK? ____ . NAME OF PERSON DRIVING YOU HOME? ____ . DO YOU HAVE ANY OTHER QUESTIONS OR CONCERNS YES PT WAS WONDERING ABOUT ANOTHER INJECTION, AND ABOUT INCREASING GABAPENTIN DOSE DISCUSSED PREVIOUSLY . REVIEWED BY: PROVIDER: NORMA ROMERO MD . VITAL SIGNS WT 237.6 LBS, HT 71 IN, BMI 33.13 INDEX, BP 158/97 MM HG, HR 72 /MIN, RR 18 /MIN, TEMP 98.2 F, OXYGEN SAT % 96%, SAFE IN ENV? (Y/N) YES, NA INITIALS SC 14:03, REVIEWED BY: CHELLE. EXAMINATION : PATIENT IS ALERT O X 3 AND COOPERATIVE. PATIENT AMBULATES WITH A LIMP ON THE LEFT LEG. PATIENT'S LEFT LEG IS WEAKER AT FLEXION AND EXTENSION COMPARED TO THE RIGHT LEG. PATIENT HAS TENDERNESS IN THE LUMBAR AREA. MRI OF THE LUMBAR SPINE DONE ON 10-06-2016 SHOWS DISC BULGES AT MULTIPLE LEVELS, AND FACET ARTHROPATHY CHANGES. 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 FARRELL'S PAIN MANAGEMENT CASE. AT THIS TIME THE PATIENT WILL RECEIVE A REFILL OF BACLOFEN, GABAPENTIN, TRAMADOL, AND TIZANIDINE. THIS IS THE COMBINATION OF MEDICATION THAT GREATLY HELPS WITH THE PATIENT'S SPASTICITY. AFTER EXAMINING THE PATIENT AND REVIEWING THE MRI PATIENT IS A GOOD CANDIDATE FOR ANOTHER LESI, I WILL REVIEW UNDER FLUORO ON WHICH LEVEL TO PROCEED L4-L5 OR L5-S1. WE DISCUSSED THE RISK, BENEFITS, AND ALTERNATIVES AND THE PATIENT WOULD LIKE TO PROCEED. PATIENT WILL BE BOOKED PENDING APPROVAL. PATIENT BROUGHT HIS MEDICATION TODAY IN THE ORIGINAL BOTTLES ADVISED TO DO FOR EVERY FOLLOW UP VISIT. I WOULD LIKE TO DISCUSSED WITH DR. ROME ABOUT INCREASING HIS GABAPENTIN. INSTRUCTIONS WERE GIVEN, QUESTIONS WERE ANSWERED, PATIENT REPORTS UNDERSTANDING AND AGREES WITH THE PLAN. I, BRIDGETTE RUEDA, DOCUMENTED THE ABOVE INFORMATION ACTING A SCRIBE FOR DR. ROMERO. I HAVE REVIEWED THE ABOVE DOCUMENT, WRITTEN BY BRIDGETTE RUEDA SCRIBE AND I VERIFY THAT IT IS ACCURATE. OTHERS REFILL BACLOFEN TABLET, 10 MG, 2 TABS, ORALLY, BEFORE BEDTIME, 30 DAY(S), 60, REFILLS 2, NOTES: 11-17-162099 REFILL GABAPENTIN CAPSULE, 300 MG, 1 CAPSULE, ORALLY, BID FOR PAIN, 30 DAY(S), 60, REFILLS 2, NOTES: 11-17-162099 REFILL TRAMADOL HCL ER TABLET EXTENDED RELEASE 24 HOUR, 300 MG, 1 TABLET, ORALLY FOR PAIN, ONCE A DAY (CODE D FOR CHRONIC PAIN), 90 DAY(S), 90, REFILLS 0, NOTES: 11-17-16 AM REFILL TIZANIDINE HCL TABLET, 4 MG, 1.5 TABLET, ORALLY, BID, 30 DAY(S), 90 TABLET, REFILLS 2, NOTES: 11-17-16 1400 PROCEDURES PN WORKMANS' COMP OPINION IN YOUR OPINION, WAS THE INCIDENT THAT THE PATIENT DESCRIBED THE COMPETENT MEDICAL CAUSE OF THIS INJURY/ILLNESS? YES ARE THE PATIENT'S COMPLAINTS CONSISTENT WITH HIS/HER HISTORY OF THE INJURY/ILLNESS? YES IS THE PATIENT'S HISTORY OF THE INJURY/ILLNESS CONSISTENT WITH YOUR OBJECTIVE FINDING? YES WHAT IS THE PERCENTAGE OF TEMPORARY IMPAIRMENT? MODERATE TO MARKED = 66.7% IS THE PATIENT WORKING? NO DOCTOR ON SITE: NORMA TURNER MD PROCEDURE CODES FA211 ESTABILISHED PATIENT [facility] FACILITY CHARGE G8730 PAIN ASSESS POS TOOL F/U PLAN DOC G8427 DOC MEDS VERIFIED W/PT OR RE DISPOSITION & COMMUNICATION FOLLOW UP LESI PENDING APPROVAL ELECTRONICALLY SIGNED BY NORMA ROMERO MD ON 02/15/2017 AT 04:28 PM EDT DISCLAIMER : THIS IS A VISIT SUMMARY EXTRACTED FROM THE [employer] CHART. IT IS NOT A COPY OF THE [employer] PROGRESS NOTE. MTDD
== END ==
LOC: M PAIN 13:40
PROVIDERS: ATTEND Anesthesiology
DX: G89.29 Other chronic pain (principal); M51.16 Intervertebral disc disorders with radiculopathy, lumbar region; M51.17 Intervertebral disc disorders with radiculopathy, lumbosacral region; M47.816 Spondylosis without myelopathy or radiculopathy, lumbar region; M47.817 Spondylosis without myelopathy or radiculopathy, lumbosacral region; I12.9 Hypertensive chronic kidney disease with stage 1 through stage 4 chronic kidney disease, or unspecified chronic kidney disease; N18.9 Chronic kidney disease, unspecified; E03.9 Hypothyroidism, unspecified; E78.5 Hyperlipidemia, unspecified; E11.9 Type 2 diabetes mellitus without complications; J45.909 Unspecified asthma, uncomplicated; Z88.6 Allergy status to analgesic agent; Z88.1 Allergy status to other antibiotic agents; I25.2 Old myocardial infarction; Z79.891 Long term (current) use of opiate analgesic; Z79.82 Long term (current) use of aspirin; Z79.899 Other long term (current) drug therapy

== ENCOUNTER → 2017-03-09 | Outpatient (CLI) | payer OTHER, MEDICARE ==
[~2017-03-09] MED LIST changes: +ePHEDrine SULFATE 25 MG/5 ML(5MG/ML) SYRINGE As Ordered ONE
--- NOTE | 2017-03-14 23:23 | ECWPNPC ---
PATIENT NAME: ACOSTA FARRELL : 1955 GENDER: MALE VISIT DATE: 03/09/2017 DISCHARGE DATE: 03/09/17 1016 VISIT LOCKED DATE TIME: PHYSICIAN: NORMA ROMERO RESOURCE: NORMA ROMERO REASON FOR APPOINTMENT 1. LOW BACK PAIN W/C HISTORY OF PRESENT ILLNESS HISTORY OF PRESENT ILLNESS: PAIN THE PATIENT DESCRIBES THE PAIN... 61 YEAR OLD MALE PATIENT WITH HISTORY OF CHRONIC LOW BACK PAIN. PATIENT DESCRIBES THE PAIN ACHING, SHARP, STABBING, TENDER, THROBBING, SORE, SHOOTING, AND HAVING IT ALL THE TIME WITH A PAIN SCORE OF 8/10. PATIENT WAS HURT IN A WORK RELATED INJURY ON 12/13/1984 WHILE WORKING FOR [employer] AND HE HURT HIS BACK. PATIENT STATES HE HAS TRIED PHYSICAL THERAPY IN THE PAST BUT DID NOT HAVE PAIN RELIEF OR INCREASED MOBILITY AND FUNCTIONALITY. MR. FARRELL IS CURRENTLY USING HYDROCODONE, GABAPENTIN, BACLOFEN, TIZANIDINE, AND TRAMADOL TO AID IN PAIN RELIEF AND REPORTS THAT THE MEDICATION KEEPS HIM MOBILE AND FUNCTIONAL. HOWEVER, PATIENT STATES THAT SINCE HE HAS NOT HAD AN INJECTION SINCE OCTOBER HE IS HAVING DIFFICULTIES GETTING OUT BED DUE TO PAIN. PATIENT DENIES UNEXPLAINABLE WEIGHT LOSS, FEVER, CHILLS, NEW CHANGES ON HIS URINARY OR BOWEL CONTROL. FALL RISK SCREENING: SCREENING :NO FALLS IN THE PAST YEAR CURRENT MEDICATIONS TAKING GABAPENTIN 300 MG CAPSULE 1 CAPSULE ORALLY (WORKERS COMP ) BID FOR PAIN TAKING TRAMADOL HCL ER 300 MG TABLET EXTENDED RELEASE 24 HOUR 1 TABLET ORALLY FOR PAIN (WORKERS COMP) ONCE A DAY (CODE D FOR CHRONIC PAIN) TAKING TIZANIDINE HCL 4 MG TABLET 1.5 TABLET ORALLY FOR SPSTICITY BID (WORKERS COMP) TAKING BACLOFEN 10 MG TABLET 2 TABS ORALLY (WORKERS COMP) BEFORE BEDTIME NEEDED FOR SPASMS TAKING HYDROCODONE-ACETAMINOPHEN 10-325 MG TABLET 2 TABLET NEEDED ORALLY MDD 6 EVERY 4 HOURS NEEDED TAKING VITAMIN D3 MAXIMUM STRENGTH 5000 UNIT CAPSULE 66376 UNITS ORALLY 2 57980 UNIT CAPSULES TWICE WEEKLY TAKING LEVOTHYROXINE SODIUM 88 MCG TABLET 162.5 MCG ORALLY ONCE A DAY TAKING SIMVASTATIN 40 40MG TABLET ORAL DAILY TAKING ASPIRIN ADULT LOW STRENGTH 81 MG TABLET DELAYED RELEASE 1 TABLET ORALLY ONCE A DAY TAKING FINASTERIDE 5 MG TABLET 1 TABLET ORALLY ONCE A DAY TAKING FOLIC ACID 5 MG CAPSULE 1 CAPSULE ORALLY ONCE A DAY TAKING VENTOLIN HFA AEROSOL SOLUTION 2 PUFFS NEEDED INHALATION EVERY 4 HRS NEEDED TAKING FUROSEMIDE 40 MG TABLET 1 TABLET ORALLY ONCE A DAY TAKING HYDRALAZINE HCL 50 MG TABLET 1 TABLET ORALLY THREE TIMES A DAY MEDICATION LIST REVIEWED AND RECONCILED WITH THE PATIENT PAST MEDICAL HISTORY HYPERTENSION HYPOTHYROIDISM HX BACK PAIN HYPERLIPIDEMIA DM ( DIET CONTROLLED) ASTHMA (EXERCISE INDUSED) RENAL FAILURE ( CURRENTLY SEEING DR. ROME) ALLERGIES BACTRIM: SHAKES/TREMORS: ALLERGY ALL NSAIDS: RENAL FAILURE: CONTRAINDICATION SURGICAL HISTORY NO SURGICAL HISTORY DOCUMENTED. FAMILY HISTORY NO FAMILY HISTORY DOCUMENTED. SOCIAL HISTORY GENERAL: PAIN CLINIC PFS, CLERGY, PUBLIC HEALTH REFERRALS CLERGY REFERRAL NEEDED?NO WAS THE PROVIDER NOTIFIED OF ANY PERTINENT INFO?NO PFS REFERRAL NEEDED?NO PUBLIC HEALTH REFERRAL NEEDED?NO PATIENT: ____. HOSPITALIZATION/MAJOR DIAGNOSTIC PROCEDURE TIA 1996 DC 2000 REVIEW OF SYSTEMS CONSTITUTIONAL: ANY CHANGE IN YOUR MEDICAL CONDITION? NO . CHILLS NO . FEVER NO . INFECTION: DO YOU HAVE NEW INFECTIONS? NO . DO YOU HAVE HISTORY OF MRSA? NO . MUSCULOSKELETAL: ANY NEW PATTERNS OF PAIN OR NUMBNESS? YES, NEW PAIN A LITTLE HIGHER THAN NORMAL PAIN AREA . GASTROENTEROLOGY: ANY NEW CHANGE IN BOWEL CONTROL? NO . GENITOURINARY: ANY NEW CHANGE IN BLADDER CONTROL? NO . IS THERE A CHANCE YOU COULD BE ? NO . HEMATOLOGY/LYMPH: DO YOU TAKE ANY BLOOD THINNERS? (FOR EXAMPLE- COUMADIN, PLAVIX, AGGRENOX, PLATEL, PRADAXA, OR XARELTO) NO . WHEN WAS YOUR LAST DOSE? DATE: TIME: . NEUROLOGY: HAVE YOU FALLEN IN THE PAST 6 MONTHS? NO . ANY NEW EXTREMITY NUMBNESS OR WEAKNESS? NO . CARDIOLOGY: DO YOU HAVE A PACEMAKER OR DEFIBRILLATOR? NO . RESPIRATORY: HAVE YOU BEEN SICK IN THE PAST WEEK? NO . FEVER NO . FLU LIKE SYMPTOMS? NO . COUGH NO . INTEGUMENTARY: DO YOU HAVE ANY RASHES OR OPEN SORES? NO . ALLERGIC/IMMUNO: ARE YOU ALLERGIC TO SHELLFISH OR IV DYE? NO . ANY NEW ALLERGIES? NO . PSYCHIATRIC: DO YOU HAVE THOUGHTS OF HURTING YOURSELF OR SOMEONE ELSE? NO . ARE YOU ABUSED, NEGLECTED, OR IN AN UNSAFE ENVIRONMENT? NO . ENDOCRINOLOGY: ARE YOU DIABETIC? YES . OTHER: DO YOU NEED ANY PRESCRIPTIONS? NO . IF YES, PLEASE LIST: ____ . ANY NEW PROBLEMS WITH YOUR MEDICATIONS? NO . WHEN DID YOU LAST EAT? ____ . WHEN DID YOU LAST DRINK? ____ . WHAT DID YOU LAST DRINK? ____ . NAME OF PERSON DRIVING YOU HOME? ____ . DO YOU HAVE ANY OTHER QUESTIONS OR CONCERNS NO . REVIEWED BY: PROVIDER: NORMA ROMERO MD . VITAL SIGNS WT 237.6 LBS, HT 71 IN, BMI 33.13 INDEX, BP 170/95 MM HG, HR 58 /MIN, RR 18 /MIN, TEMP 97.7 F, OXYGEN SAT % 95%, NA INITIALS SC 08:47, REVIEWED BY: CS. EXAMINATION : PATIENT IS ALERT O X 3 AND COOPERATIVE. PATIENT AMBULATES WITH A LIMP ON THE LEFT LEG. PATIENT'S LEFT LEG IS WEAKER AT FLEXION AND EXTENSION COMPARED TO THE RIGHT LEG. PATIENT ABLE TO FLEX 40 DEGREES AND EXTEND 5 DEGREES WITH DISCOMFORT. PATIENT HAS TENDERNESS IN THE LUMBAR AREA. MRI OF THE LUMBAR SPINE DONE ON 10/06/2016 SHOWS DISC BULGES AT MULTIPLE LEVELS, AND FACET ARTHROPATHY CHANGES. 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 FARRELL'S PAIN MANAGEMENT CASE. AT THIS TIME THE PATIENT WILL CONTINUE WITH THE SAME MEDICATION REGIME BEFORE. PATIENT IS USING THE HYDROCODONE FOR THE SOMATIC PAIN ALONG WITH THE TRAMADOL, GABAPENTIN FOR THE NEUROPATHIC PAIN, AND BACLOFEN AND TIZANIDINE FOR THE SPASTICITY AND MUSCLE SPASMS. PATIENT REPORTS HE WOULD NOT BE FUNCTIONAL WITHOUT THE MEDICATION. PATIENT DENIES ABUSE OF ANY MEDICATION, DENIES USE OF ILLEGAL SUBSTANCES, AND STATES THAT HE IS ONLY USING THE MEDICATION FOR PAIN MANAGEMENT. URINE TOXICOLOGY REPORT DONE ON 11/03/16 SHOWS CONSISTENT RESULTS WITH THE PATIENT'S MEDICATION LIST. PATIENT IS A GOOD CANDIDATE FOR ANOTHER LUMBAR EPIDURAL. PATIENT RECEIVED A LUMBAR EPIDURAL ON 11/18/16 AND HAD OVER 50% PAIN RELIEF FOR SEVERAL WEEKS. WE DISCUSSED THE RISKS, BENENFITS, AND ALTNERATIVES OF THE INJECTION AND THE PATIENT WOULD LIKE TO PROCEED WITH ONE AT THIS TIME. INSTRUCTIONS WERE GIVEN, QUESTIONS WERE ANSWERED, PATIENT REPORTS UNDERSTANDING AND AGREES WITH THE PLAN. I, BERNARDO THAO, DOCUMENTED THE ABOVE INFORMATION ACTING A SCRIBE FOR DR. ROMERO. I HAVE REVIEWED THE ABOVE DOCUMENT, WRITTEN BY BERNARDO INFANTE AND I VERIFY THAT IT IS ACCURATE. PROCEDURES PN WORKMANS' COMP OPINION IN YOUR OPINION, WAS THE INCIDENT THAT THE PATIENT DESCRIBED THE COMPETENT MEDICAL CAUSE OF THIS INJURY/ILLNESS? YES ARE THE PATIENT'S COMPLAINTS CONSISTENT WITH HIS/HER HISTORY OF THE INJURY/ILLNESS? YES IS THE PATIENT'S HISTORY OF THE INJURY/ILLNESS CONSISTENT WITH YOUR OBJECTIVE FINDING? YES WHAT IS THE PERCENTAGE OF TEMPORARY IMPAIRMENT? MODERATE TO MARKED = 66.7% IS THE PATIENT WORKING? NO DOCTOR ON SITE: NORMA TURNER MD PROCEDURE CODES FA211 ESTABILISHED PATIENT [facility] FACILITY CHARGE G8427 DOC MEDS VERIFIED W/PT OR RE G8730 PAIN ASSESS POS TOOL F/U PLAN DOC DISPOSITION & COMMUNICATION FOLLOW UP LESI AFTER APPROVAL ELECTRONICALLY SIGNED BY NORMA ROMERO MD ON 03/14/2017 AT 07:25 PM EDT DISCLAIMER : THIS IS A VISIT SUMMARY EXTRACTED FROM THE [employer] CHART. IT IS NOT A COPY OF THE [employer] PROGRESS NOTE. VIKY
== END ==
LOC: M PAIN 08:30
PROVIDERS: ATTEND Anesthesiology
DX: G89.29 Other chronic pain (principal); M51.16 Intervertebral disc disorders with radiculopathy, lumbar region; M51.17 Intervertebral disc disorders with radiculopathy, lumbosacral region; M47.816 Spondylosis without myelopathy or radiculopathy, lumbar region; M47.817 Spondylosis without myelopathy or radiculopathy, lumbosacral region; E03.9 Hypothyroidism, unspecified; E78.5 Hyperlipidemia, unspecified; I12.9 Hypertensive chronic kidney disease with stage 1 through stage 4 chronic kidney disease, or unspecified chronic kidney disease; E11.9 Type 2 diabetes mellitus without complications; N18.9 Chronic kidney disease, unspecified; J45.909 Unspecified asthma, uncomplicated; I25.2 Old myocardial infarction; Z88.6 Allergy status to analgesic agent; Z88.1 Allergy status to other antibiotic agents; Z79.891 Long term (current) use of opiate analgesic; Z79.82 Long term (current) use of aspirin; Z79.899 Other long term (current) drug therapy

== ENCOUNTER → 2017-04-09 | Outpatient (CLI) | payer OTHER, MEDICARE ==
[~2017-04-09] MED LIST changes: -ePHEDrine SULFATE 25 MG/5 ML(5MG/ML) SYRINGE As Ordered ONE
--- NOTE | 2017-04-18 00:49 | ECWPNPC ---
PATIENT NAME: ACOSTA FARRELL : 1955 GENDER: MALE VISIT DATE: 04/09/2017 DISCHARGE DATE: 04/09/17 1410 VISIT LOCKED DATE TIME: PHYSICIAN: NORMA ROMERO RESOURCE: NORMA ROMERO REASON FOR APPOINTMENT 1. W/C BACK PAIN HISTORY OF PRESENT ILLNESS HISTORY OF PRESENT ILLNESS: PAIN THE PATIENT DESCRIBES THE PAIN... 61 YEAR OLD MALE PATIENT WITH HISTORY OF CHRONIC LOW BACK PAIN. PATIENT DESCRIBES THE PAIN ACHING, SHARP, STABBING, TENDER, THROBBING, SORE, SHOOTING, AND HAVING IT ALL THE TIME WITH A PAIN SCORE OF 8-9/10. PATIENT WAS HURT IN A WORK RELATED INJURY ON 12/13/1984 WHILE WORKING FOR [employer] A [employer] AND HE HURT HIS BACK. PATIENT STATES HE HAS TRIED PHYSICAL THERAPY IN THE PAST BUT DID NOT HAVE PAIN RELIEF OR INCREASED MOBILITY AND FUNCTIONALITY. MR. FARRELL IS CURRENTLY USING HYDROCODONE, GABAPENTIN, BACLOFEN, TIZANIDINE, AND TRAMADOL TO AID IN PAIN RELIEF AND REPORTS THAT THE MEDICATION KEEPS HIM MOBILE AND FUNCTIONAL. HOWEVER, PATIENT STATES THAT SINCE HE HAS NOT HAD AN INJECTION SINCE OCTOBER HE IS HAVING DIFFICULTIES GETTING OUT BED AND FUNCTIONING. PATIENT DENIES UNEXPLAINABLE WEIGHT LOSS, FEVER, CHILLS, NEW CHANGES ON HIS URINARY OR BOWEL CONTROL. FALL RISK SCREENING: SCREENING :NO FALLS IN THE PAST YEAR CURRENT MEDICATIONS TAKING GABAPENTIN 300 MG CAPSULE 1 CAPSULE ORALLY (WORKERS COMP ) BID FOR PAIN TAKING TRAMADOL HCL ER 300 MG TABLET EXTENDED RELEASE 24 HOUR 1 TABLET ORALLY FOR PAIN (WORKERS COMP) ONCE A DAY (CODE D FOR CHRONIC PAIN) TAKING TIZANIDINE HCL 4 MG TABLET 1.5 TABLET ORALLY FOR SPSTICITY BID (WORKERS COMP) TAKING BACLOFEN 10 MG TABLET 2 TABS ORALLY (WORKERS COMP) BEFORE BEDTIME NEEDED FOR SPASMS TAKING VITAMIN D3 MAXIMUM STRENGTH 5000 UNIT CAPSULE 58929 UNITS ORALLY 2 90184 UNIT CAPSULES TWICE WEEKLY TAKING LEVOTHYROXINE SODIUM 88 MCG TABLET 162.5 MCG ORALLY ONCE A DAY TAKING SIMVASTATIN 40 40MG TABLET ORAL DAILY TAKING ASPIRIN ADULT LOW STRENGTH 81 MG TABLET DELAYED RELEASE 1 TABLET ORALLY ONCE A DAY TAKING FINASTERIDE 5 MG TABLET 1 TABLET ORALLY ONCE A DAY TAKING FOLIC ACID 5 MG CAPSULE 1 CAPSULE ORALLY ONCE A DAY TAKING VENTOLIN HFA AEROSOL SOLUTION 2 PUFFS NEEDED INHALATION EVERY 4 HRS NEEDED TAKING FUROSEMIDE 20 MG TABLET 1 TABLET ORALLY ONCE A DAY TAKING HYDRALAZINE HCL 50 MG TABLET 1 TABLET ORALLY THREE TIMES A DAY TAKING HYDROCODONE-ACETAMINOPHEN 10-325 MG TABLET 2 TABLET NEEDED ORALLY MDD 6 EVERY 4 HOURS NEEDED MEDICATION LIST REVIEWED AND RECONCILED WITH THE PATIENT PAST MEDICAL HISTORY HYPERTENSION HYPOTHYROIDISM HX BACK PAIN HYPERLIPIDEMIA DM ( DIET CONTROLLED) ASTHMA (EXERCISE INDUSED) RENAL FAILURE ( CURRENTLY SEEING DR. ROME) ALLERGIES BACTRIM: SHAKES/TREMORS: ALLERGY ALL NSAIDS: RENAL FAILURE: CONTRAINDICATION SURGICAL HISTORY NO SURGICAL HISTORY DOCUMENTED. FAMILY HISTORY NO FAMILY HISTORY DOCUMENTED. SOCIAL HISTORY GENERAL: JUDAISM [id number] NONE PAIN CLINIC PFS, CLERGY, PUBLIC HEALTH REFERRALS PFS REFERRAL NEEDED?NO CLERGY REFERRAL NEEDED?NO PUBLIC HEALTH REFERRAL NEEDED?NO WAS THE PROVIDER NOTIFIED OF ANY PERTINENT INFO?NO HAS THE PATIENT BEEN EDUCATED REGARDING HIS/HER PLAN OF CARE?YES HAS THE PATIENT BEEN EDUCATED REGARDING PAIN, THE RISK FOR PAIN, THE IMPORTANCE OF EFFECTIVE PAIN MANAGEMENT, AND THE PAIN ASSESSMENT PROCESS?YES PATIENT: ____. HOSPITALIZATION/MAJOR DIAGNOSTIC PROCEDURE TIA 1996 OR 2000 REVIEW OF SYSTEMS REVIEWED BY: PROVIDER: NORMA ROMERO MD . CONSTITUTIONAL: ANY CHANGE IN YOUR MEDICAL CONDITION? YES, PAIN HAS GOTTEN WORSE . CHILLS NO . FEVER NO . INFECTION: DO YOU HAVE NEW INFECTIONS? NO . DO YOU HAVE HISTORY OF MRSA? NO . MUSCULOSKELETAL: ANY NEW PATTERNS OF PAIN OR NUMBNESS? NO . GASTROENTEROLOGY: ANY NEW CHANGE IN BOWEL CONTROL? NO . GENITOURINARY: ANY NEW CHANGE IN BLADDER CONTROL? NO . IS THERE A CHANCE YOU COULD BE ? NO . HEMATOLOGY/LYMPH: DO YOU TAKE ANY BLOOD THINNERS? (FOR EXAMPLE- COUMADIN, PLAVIX, AGGRENOX, PLATEL, PRADAXA, OR XARELTO) NO . WHEN WAS YOUR LAST DOSE? DATE: TIME: . NEUROLOGY: HAVE YOU FALLEN IN THE PAST 6 MONTHS? NO . ANY NEW EXTREMITY NUMBNESS OR WEAKNESS? NO . CARDIOLOGY: DO YOU HAVE A PACEMAKER OR DEFIBRILLATOR? NO . RESPIRATORY: HAVE YOU BEEN SICK IN THE PAST WEEK? NO . FEVER NO . FLU LIKE SYMPTOMS? NO . COUGH NO . INTEGUMENTARY: DO YOU HAVE ANY RASHES OR OPEN SORES? NO . ALLERGIC/IMMUNO: ARE YOU ALLERGIC TO SHELLFISH OR IV DYE? NO . ANY NEW ALLERGIES? NO . PSYCHIATRIC: DO YOU HAVE THOUGHTS OF HURTING YOURSELF OR SOMEONE ELSE? NO . ARE YOU ABUSED, NEGLECTED, OR IN AN UNSAFE ENVIRONMENT? NO . ENDOCRINOLOGY: ARE YOU DIABETIC? YES, DIET CONTROLLED . OTHER: DO YOU NEED ANY PRESCRIPTIONS? YES . IF YES, PLEASE LIST: TRAMADOL, BACLOFEN, TIZANIDINE . ANY NEW PROBLEMS WITH YOUR MEDICATIONS? NO . WHEN DID YOU LAST EAT? ____ . WHEN DID YOU LAST DRINK? ____ . WHAT DID YOU LAST DRINK? ____ . NAME OF PERSON DRIVING YOU HOME? ____ . DO YOU HAVE ANY OTHER QUESTIONS OR CONCERNS NO . VITAL SIGNS WT 237.6 LBS, HT 71 IN, BMI 33.13 INDEX, BP 148/96 MM HG, HR 63 /MIN, RR 18 /MIN, TEMP 98.3 F, OXYGEN SAT % 97%, REVIEWED BY: KRISTIE (DONE AT 1305). EXAMINATION : PATIENT IS ALERT O X 3 AND COOPERATIVE. PATIENT AMBULATES WITH A LIMP ON THE LEFT LEG. PATIENT'S LEFT LEG IS WEAKER AT FLEXION AND EXTENSION COMPARED TO THE RIGHT LEG. PATIENT ABLE TO FLEX 40 DEGREES AND EXTEND 5 DEGREES WITH DISCOMFORT. PATIENT HAS SEVERE TENDERNESS IN THE LUMBAR AREA. PATIENT TESTED POSITIVE FOR PAIN WITH STRAIGHT LEG RAISES AT 20 DEGREES LEFT LEG AND 35 DEGREES FOR THE RIGHT, MRI OF THE LUMBAR SPINE DONE ON 10/06/2016 SHOWS DISC BULGES AT MULTIPLE LEVELS, AND FACET ARTHROPATHY CHANGES. ASSESSMENTS LUMBAR POST-LAMINECTOMY SYNDROME - M96.1 (PRIMARY) INTERVERTEBRAL DISC DISORDERS WITH RADICULOPATHY, LUMBAR REGION - M51.16 TREATMENT LUMBAR POST-LAMINECTOMY SYNDROME REFILL GABAPENTIN CAPSULE, 300 MG, 1 CAPSULE, ORALLY (WORKERS COMP ), BID FOR PAIN, 30 DAY(S), 60, REFILLS 2 REFILL TRAMADOL HCL ER TABLET EXTENDED RELEASE 24 HOUR, 300 MG, 1 TABLET, ORALLY FOR PAIN (WORKERS COMP), ONCE A DAY (CODE D FOR CHRONIC PAIN), 90 DAY(S), 90, REFILLS 0 REFILL TIZANIDINE HCL TABLET, 4 MG, 1.5 TABLET, ORALLY FOR SPSTICITY, BID (WORKERS COMP), 30 DAY(S), 90 TABLET, REFILLS 2 NOTES: WE DISCUSSED SEVERAL ISSUES WITH MR. FARRELL'S PAIN MANAGEMENT CASE. AT THIS TIME THE PATIENT WILL CONTINUE WITH THE SAME MEDICATION REGIME BEFORE. PATIENT IS USING THE HYDROCODONE FOR THE SOMATIC PAIN ALONG WITH THE TRAMADOL, GABAPENTIN FOR THE NEUROPATHIC PAIN, AND BACLOFEN AND TIZANIDINE FOR THE SPASTICITY AND MUSCLE SPASMS. PATIENT REPORTS HE WOULD NOT BE FUNCTIONAL WITHOUT THE MEDICATION. PATIENT DENIES ABUSE OF ANY MEDICATION, DENIES USE OF ILLEGAL SUBSTANCES, AND STATES THAT HE IS ONLY USING THE MEDICATION FOR PAIN MANAGEMENT. URINE TOXICOLOGY REPORT DONE ON 11/03/16 SHOWS CONSISTENT RESULTS WITH THE PATIENT'S MEDICATION LIST. PATIENT IS A GOOD CANDIDATE FOR ANOTHER LUMBAR EPIDURAL DUE TO THE RADICULAR PAIN. PATIENT RECEIVED A LUMBAR EPIDURAL ON 11/18/16 AND HAD OVER 50% PAIN RELIEF FOR SEVERAL WEEKS. WE DISCUSSED THE RISKS, BENENFITS, AND ALTNERATIVES OF THE INJECTION AND THE PATIENT WOULD LIKE TO PROCEED WITH ONE AT THIS TIME. INSTRUCTIONS WERE GIVEN, QUESTIONS WERE ANSWERED, PATIENT REPORTS UNDERSTANDING AND AGREES WITH THE PLAN. I, BERNARDO THAO, DOCUMENTED THE ABOVE INFORMATION ACTING A SCRIBE FOR DR. ROMERO. I HAVE REVIEWED THE ABOVE DOCUMENT, WRITTEN BY BERNARDO INFANTE AND I VERIFY THAT IT IS ACCURATE. INTERVERTEBRAL DISC DISORDERS WITH RADICULOPATHY, LUMBAR REGION REFILL HYDROCODONE-ACETAMINOPHEN TABLET, 10-325 MG, 2 TABLET NEEDED, ORALLY MDD 6, EVERY 4 HOURS NEEDED, 30 DAY(S), 120, REFILLS 0 OTHERS REFILL BACLOFEN TABLET, 10 MG, 2 TABS, ORALLY (WORKERS COMP), BEFORE BEDTIME NEEDED FOR SPASMS, 30 DAY(S), 60, REFILLS 2 PROCEDURES PN WORKMANS' COMP OPINION IN YOUR OPINION, WAS THE INCIDENT THAT THE PATIENT DESCRIBED THE COMPETENT MEDICAL CAUSE OF THIS INJURY/ILLNESS? YES ARE THE PATIENT'S COMPLAINTS CONSISTENT WITH HIS/HER HISTORY OF THE INJURY/ILLNESS? YES IS THE PATIENT'S HISTORY OF THE INJURY/ILLNESS CONSISTENT WITH YOUR OBJECTIVE FINDING? YES WHAT IS THE PERCENTAGE OF TEMPORARY IMPAIRMENT? MODERATE TO MARKED = 66.7% IS THE PATIENT WORKING? NO DOCTOR ON SITE: NORMA TURNER MD PROCEDURE CODES FA211 ESTABILISHED PATIENT [facility] FACILITY CHARGE G8427 DOC MEDS VERIFIED W/PT OR RE G8730 PAIN ASSESS POS TOOL F/U PLAN DOC DISPOSITION & COMMUNICATION FOLLOW UP LESI AFTER APPROVAL ELECTRONICALLY SIGNED BY NORMA ROMERO MD ON 04/17/2017 AT 08:22 AM EDT DISCLAIMER : THIS IS A VISIT SUMMARY EXTRACTED FROM THE [employer] CHART. IT IS NOT A COPY OF THE [employer] PROGRESS NOTE. MTDD
== END ==
LOC: M PAIN 13:00
PROVIDERS: ATTEND Anesthesiology
DX: M96.1 Postlaminectomy syndrome, not elsewhere classified (principal); M51.16 Intervertebral disc disorders with radiculopathy, lumbar region; E03.9 Hypothyroidism, unspecified; E78.5 Hyperlipidemia, unspecified; E11.9 Type 2 diabetes mellitus without complications; J45.909 Unspecified asthma, uncomplicated; I12.9 Hypertensive chronic kidney disease with stage 1 through stage 4 chronic kidney disease, or unspecified chronic kidney disease; N18.9 Chronic kidney disease, unspecified; Z88.1 Allergy status to other antibiotic agents; Z88.6 Allergy status to analgesic agent; Z79.891 Long term (current) use of opiate analgesic; Z79.82 Long term (current) use of aspirin; Z79.899 Other long term (current) drug therapy

== ENCOUNTER → 2017-06-09 | Outpatient (CLI) | payer OTHER ==
[~2017-06-09] MED LIST changes: -FOLI1TAB2 PO; +FOLI1TAB4 PO; +ISOVUE-M 300 61% 15ML VIAL (Q9967) As Ordered ONE; +LIDOCAINE 1% SDV INJ 30 ML VIAL As Ordered ONE; +diazePAM 5 MG TAB As Ordered ONE; +methylPREDNISolone SUSP 40 MG/ML (DEPO-medrol) VIAL (J1030) As Ordered ONE; +oxyCODONE 5MG TAB As Ordered ONE
--- NOTE | 2017-06-09 15:14 | REP ---
Partial lumbar spine series: Three views. . History: Injection procedure for pain. Date seconds of fluoroscopy time is reported. Findings: A sequence of three fluoroscopically obtained last image hold procedural spot radiographs of the lumbar spine document needle position and contrast injection associated with injection procedure. Signed by Corwin Andrew MD 06/09/2017 03:05 P
--- NOTE | 2017-06-14 23:50 | ECWPNPC ---
PATIENT NAME: ACOSTA FARRELL : 1955 GENDER: MALE VISIT DATE: 06/09/2017 DISCHARGE DATE: 06/09/17 1306 VISIT LOCKED DATE TIME: PHYSICIAN: NORMA ROMERO RESOURCE: NORMA ROMERO REASON FOR APPOINTMENT 1. LESI HISTORY OF PRESENT ILLNESS HISTORY OF PRESENT ILLNESS: PAIN THE PATIENT DESCRIBES THE PAIN... FALL RISK SCREENING: SCREENING :NO FALLS IN THE PAST YEAR CURRENT MEDICATIONS TAKING VITAMIN D3 MAXIMUM STRENGTH 5000 UNIT CAPSULE 53493 UNITS ORALLY 2 30675 UNIT CAPSULES TWICE WEEKLY, NOTES: 0800 06/08/17 TAKING LEVOTHYROXINE SODIUM 88 MCG TABLET 162.5 MCG ORALLY ONCE A DAY, NOTES: 0806/08/17 TAKING ASPIRIN ADULT LOW STRENGTH 81 MG TABLET DELAYED RELEASE 1 TABLET ORALLY ONCE A DAY, NOTES: 06/08 TAKING FINASTERIDE 5 MG TABLET 1 TABLET ORALLY ONCE A DAY, NOTES: 8PM 06/08/17 TAKING FOLIC ACID 5 MG CAPSULE 1 CAPSULE ORALLY ONCE A DAY, NOTES: 0806/08/17 TAKING VENTOLIN HFA AEROSOL SOLUTION 2 PUFFS NEEDED INHALATION EVERY 4 HRS NEEDED, NOTES: THONG PRESCOTT TAKING FUROSEMIDE 20 MG TABLET 1 TABLET ORALLY ONCE A DAY, NOTES: 0806/08/17 TAKING HYDRALAZINE HCL 50 MG TABLET 1 TABLET ORALLY THREE TIMES A DAY, NOTES: 06/08/17 8P TAKING BACLOFEN 10 MG TABLET 2 TABS ORALLY (WORKERS COMP) BEFORE BEDTIME NEEDED FOR SPASMS, NOTES: 06/08/17 8PM TAKING HYDROCODONE-ACETAMINOPHEN 10-325 MG TABLET 2 TABLET NEEDED ORALLY MDD 6 EVERY 4 HOURS NEEDED, NOTES: 06/08/17 8AM TAKING GABAPENTIN 300 MG CAPSULE 1 CAPSULE ORALLY (WORKERS COMP ) BID FOR PAIN, NOTES: 06/08/17 8PM TAKING TRAMADOL HCL ER 300 MG TABLET EXTENDED RELEASE 24 HOUR 1 TABLET ORALLY FOR PAIN (WORKERS COMP) ONCE A DAY (CODE D FOR CHRONIC PAIN), NOTES: 06/08 17 8AM TAKING TIZANIDINE HCL 4 MG TABLET 1.5 TABLET ORALLY FOR SPSTICITY BID (WORKERS COMP), NOTES: 06/08 17 1600 TAKING SIMVASTATIN 20 MG TABLET 1 TABLET IN THE EVENING ORALLY ONCE A DAY, NOTES: 06/08/17 8PM TAKING AMLODIPINE BESYLATE 5 MG TABLET 1 TABLET ORALLY ONCE A DAY, NOTES: 06/08/17 8PM NOT-TAKING SIMVASTATIN 40 40MG TABLET ORAL DAILY MEDICATION LIST REVIEWED AND RECONCILED WITH THE PATIENT PAST MEDICAL HISTORY HYPERTENSION HYPOTHYROIDISM HX BACK PAIN HYPERLIPIDEMIA DM ( DIET CONTROLLED) ASTHMA (EXERCISE INDUSED) RENAL FAILURE ( CURRENTLY SEEING DR. ROME) ALLERGIES BACTRIM: SHAKES/TREMORS: ALLERGY ALL NSAIDS: RENAL FAILURE: CONTRAINDICATION REVIEW OF SYSTEMS REVIEWED BY: PROVIDER: . CONSTITUTIONAL: ANY CHANGE IN YOUR MEDICAL CONDITION? NO . CHILLS NO . FEVER NO . INFECTION: DO YOU HAVE NEW INFECTIONS? NO . DO YOU HAVE HISTORY OF MRSA? NO . MUSCULOSKELETAL: ANY NEW PATTERNS OF PAIN OR NUMBNESS? NO . GASTROENTEROLOGY: ANY NEW CHANGE IN BOWEL CONTROL? NO . GENITOURINARY: ANY NEW CHANGE IN BLADDER CONTROL? NO . IS THERE A CHANCE YOU COULD BE ? NO . HEMATOLOGY/LYMPH: DO YOU TAKE ANY BLOOD THINNERS? (FOR EXAMPLE- COUMADIN, PLAVIX, AGGRENOX, PLATEL, PRADAXA, OR XARELTO) NO . WHEN WAS YOUR LAST DOSE? DATE: TIME: . NEUROLOGY: HAVE YOU FALLEN IN THE PAST 6 MONTHS? NO . ANY NEW EXTREMITY NUMBNESS OR WEAKNESS? YES, MUCH ,MORE PAIN AND LEFT SIDE &QUOT;LOCKS UP&QUOT; SO HE CANNOT WALK . CARDIOLOGY: DO YOU HAVE A PACEMAKER OR DEFIBRILLATOR? NO . RESPIRATORY: HAVE YOU BEEN SICK IN THE PAST WEEK? NO . FEVER NO . FLU LIKE SYMPTOMS? NO . COUGH NO . INTEGUMENTARY: DO YOU HAVE ANY RASHES OR OPEN SORES? NO . ALLERGIC/IMMUNO: ARE YOU ALLERGIC TO SHELLFISH OR IV DYE? NO . ANY NEW ALLERGIES? NO . PSYCHIATRIC: DO YOU HAVE THOUGHTS OF HURTING YOURSELF OR SOMEONE ELSE? NO . ARE YOU ABUSED, NEGLECTED, OR IN AN UNSAFE ENVIRONMENT? NO . ENDOCRINOLOGY: ARE YOU DIABETIC? YES . OTHER: DO YOU NEED ANY PRESCRIPTIONS? NO . IF YES, PLEASE LIST: ____ . ANY NEW PROBLEMS WITH YOUR MEDICATIONS? NO . WHEN DID YOU LAST EAT? 12AM . WHEN DID YOU LAST DRINK? 4AM . WHAT DID YOU LAST DRINK? WATER . NAME OF PERSON DRIVING YOU HOME? MARLIN . DO YOU HAVE ANY OTHER QUESTIONS OR CONCERNS NO . VITAL SIGNS WT 225 LBS, HT 71 IN, BMI 31.38 INDEX, BP 152/96 MM HG, HR 60 /MIN, RR 18 /MIN, TEMP 97.6 F, OXYGEN SAT % 97%, NA INITIALS AW 1037, REVIEWED BY: NL. ASSESSMENTS INTERVERTEBRAL DISC DISORDERS WITH RADICULOPATHY, LUMBOSACRAL REGION - M51.17 (PRIMARY) PROCEDURES PRE PROCEDURE DIAGNOSIS LUMBAR DISC DISORDER WITH RADICULOPATHY POST PROCEDURE DIAGNOSIS LUMBAR DISC DISORDER WITH RADICULOPATHY PROCEDURE LUMBAR EPIDURAL STEROID INJECTION UNDER FLUOROSCOPIC GUIDANCE SURGEON DR. NORMA ROMERO RN EMERGENCY NONE ANESTHESIA LOCAL PRE PROCEDURE NOTE THE PATIENT HAS A HISTORY OF CHRONIC LOW BACK PAIN. I EVALUATE THE PATIENT AND REVIEWED THE CHART. I WENT OVER THE RISKS, ALTERNATIVES, AND BENEFITS ASSOCIATED WITH THIS PROCEDURE. THE PATIENT WOULD LIKE TO PROCEED AND GIVE CONSENT TO PERFORMED THE PROCEDURE. THE PATIENT DENIES UNEXPLAINABLE WEIGHT LOSS, FEVER, CHILLS, OR NEW CHANGES IN URINARY OR BOWEL CONTROL. DESCRIPTION OF PROCEDURE THE PATIENT WAS BROUGHT TO THE PROCEDURE ROOM AND PLACED IN THE PRONE POSITION. THE LUMBOSACRAL AREA WAS CLEANED WITH BETADINE SOLUTION AND DRAPED ASEPTICALLY. THE PROCEDURE WAS DONE UNDER STERILE CONDITIONS. I CHECKED LATERALITY AND THE LEVEL WHERE THE PROCEDURE WAS GOING TO BE PERFORMED WITH THE PATIENT AND THE SUPPORTING STAFF AT THE MOMENT OF THE TIME OUT IN THE PROCEDURE ROOM. UNDER FLUOROSCOPIC GUIDANCE, THE TARGET POINT WAS SELECTED AT THE INTERLAMINAR LEVEL OF L5-S1. LIDOCAINE WAS USED TO NUMB THE SKIN AND THE SUBCUTANEOUS TISSUE BELOW IT. EPIDURAL TUOHY NEEDLE, 17-GAUGE, WAS ADVANCED UNDER FLUOROSCOPIC GUIDANCE AND FOLLOWING PATIENT FEEDBACK UNTIL THE EPIDURAL SPACE WAS REACHED, 7 CM DEEP INTO THE SKIN BY THE LOSS OF RESISTANCE TECHNIQUE. ISOVUE M DYE 30%, 0.25 ML, WAS INJECTED SHOWING ADEQUATE SPREAD OF THE DYE. THEN, A SOLUTION OF 3 ML OF NORMAL SALINE WITH DEPO-MEDROL 60 MG WAS INJECTED SLOWLY FOLLOWING PATIENT FEEDBACK. THERE WAS NO EVIDENCE OF BLOOD, PARESTHESIA OR CEREBROSPINAL FLUID DURING THE PROCEDURE. THE PATIENT WAS SENT TO THE RECOVERY ROOM. THE PATIENT WAS MOVING THE EXTREMITIES AND DOING WELL. THERE WAS NO COMPLICATION DURING THE PROCEDURE. FLUOROSCOPY TIME WAS 8 SECONDS. POST PROCEDURE NOTE THE PATIENT WILL BE SEEN IN A FOLLOW UP IN THE NEXT FEW WEEKS. INSTRUCTIONS WERE GIVEN, QUESTIONS WERE ANSWERED, AND THE PATIENT EXPRESSED UNDERSTANDING AND AGREES WITH THE PLAN. I, BERNARDO THAO, DOCUMENTED THE ABOVE INFORMATION ACTING A SCRIBE FOR DR. ROMERO. I HAVE REVIEWED THE ABOVE DOCUMENT, WRITTEN BY BERNARDO INFANTE AND I VERIFY THAT IT IS ACCURATE DIAGNOSTIC IMAGING [facility] FLUORO GUIDE SPINE INJECTION (PAIN)[id number] PROCEDURE CODES 27711 LUMBAR/SACRAL W/ IMAGING 6045F RADXPS IN END [id number] PXD DISPOSITION & COMMUNICATION FOLLOW UP 3 WEEKS ELECTRONICALLY SIGNED BY NORMA ROMERO MD ON 06/14/2017 AT 07:14 PM EDT DISCLAIMER : THIS IS A VISIT SUMMARY EXTRACTED FROM THE [employer] CHART. IT IS NOT A COPY OF THE [employer] PROGRESS NOTE. MTDD
== END ==
LOC: M PAIN 10:30
PROVIDERS: ATTEND Anesthesiology
DX: G89.29 Other chronic pain (principal); M51.17 Intervertebral disc disorders with radiculopathy, lumbosacral region; I12.9 Hypertensive chronic kidney disease with stage 1 through stage 4 chronic kidney disease, or unspecified chronic kidney disease; N18.9 Chronic kidney disease, unspecified; E03.9 Hypothyroidism, unspecified; E11.9 Type 2 diabetes mellitus without complications; Z88.1 Allergy status to other antibiotic agents; Z88.6 Allergy status to analgesic agent; Z79.82 Long term (current) use of aspirin; Z79.891 Long term (current) use of opiate analgesic; Z79.899 Other long term (current) drug therapy
CPT/HCPCS: 62323; J1030; Q9967

== ENCOUNTER → 2017-07-01 | Outpatient (CLI) | payer OTHER ==
[~2017-07-01] MED LIST changes: -ISOVUE-M 300 61% 15ML VIAL (Q9967) As Ordered ONE; -LIDOCAINE 1% SDV INJ 30 ML VIAL As Ordered ONE; -diazePAM 5 MG TAB As Ordered ONE; -methylPREDNISolone SUSP 40 MG/ML (DEPO-medrol) VIAL (J1030) As Ordered ONE; -oxyCODONE 5MG TAB As Ordered ONE
--- NOTE | 2017-07-21 01:53 | ECWPNPC ---
PATIENT NAME: ACOSTA FARRELL : 1955 GENDER: MALE VISIT DATE: 07/01/2017 DISCHARGE DATE: 07/01/17 0943 VISIT LOCKED DATE TIME: PHYSICIAN: EUGENE BARTLETT RESOURCE: EUGENE BARTLETT REASON FOR APPOINTMENT 1. POST LE HISTORY OF PRESENT ILLNESS HISTORY OF PRESENT ILLNESS: PAIN THE PATIENT DESCRIBES THE PAIN... FALL RISK SCREENING: SCREENING :NO FALLS IN THE PAST YEAR TODAY'S VISIT: NOTES: WC FOLLOWUP FOR LOW BACK PAIN. S/P LESB COMPLETED ON 06/09/17. NOTES PAIN WAS 6-7/10 PRIOR TO INJECTION AND DECREASED TO 0-1/10 FOR THE NEXT 2 WEEKS. NOTES THERE IS SOME SORENESS THERE ALL THE TIME.. NO PAIN RADIATING TO LEGS. ABLE TO TWIST AND BEND. SLEEP IS STILL DISRUPTED . KIDNEY FUNCTION IS 72% PER PT AND NO ISSUES WITH BOWELS. . CURRENT MEDICATIONS TAKING VITAMIN D3 MAXIMUM STRENGTH 5000 UNIT CAPSULE 69302 UNITS ORALLY 2 52821 UNIT CAPSULES TWICE WEEKLY, NOTES: 0800 06/08/17 TAKING LEVOTHYROXINE SODIUM 88 MCG TABLET 162.5 MCG ORALLY ONCE A DAY, NOTES: 0806/08/17 TAKING ASPIRIN ADULT LOW STRENGTH 81 MG TABLET DELAYED RELEASE 1 TABLET ORALLY ONCE A DAY, NOTES: 0806/08 TAKING FINASTERIDE 5 MG TABLET 1 TABLET ORALLY ONCE A DAY, NOTES: 8PM 06/08/17 TAKING FOLIC ACID 5 MG CAPSULE 1 CAPSULE ORALLY ONCE A DAY, NOTES: 0806/08/17 TAKING VENTOLIN HFA AEROSOL SOLUTION 2 PUFFS NEEDED INHALATION EVERY 4 HRS NEEDED, NOTES: THONG PRESCOTT TAKING FUROSEMIDE 20 MG TABLET 1 TABLET ORALLY ONCE A DAY, NOTES: 0806/08/17 TAKING HYDRALAZINE HCL 50 MG TABLET 1 TABLET ORALLY THREE TIMES A DAY, NOTES: 06/08/17 8P TAKING BACLOFEN 10 MG TABLET 2 TABS ORALLY (WORKERS COMP) BEFORE BEDTIME NEEDED FOR SPASMS, NOTES: 06/08/17 8PM TAKING HYDROCODONE-ACETAMINOPHEN 10-325 MG TABLET 2 TABLET NEEDED ORALLY MDD 6 EVERY 4 HOURS NEEDED, NOTES: 06/08/17 8AM TAKING GABAPENTIN 300 MG CAPSULE 1 CAPSULE ORALLY (WORKERS COMP ) BID FOR PAIN, NOTES: 06/08/17 8PM TAKING TRAMADOL HCL ER 300 MG TABLET EXTENDED RELEASE 24 HOUR 1 TABLET ORALLY FOR PAIN (WORKERS COMP) ONCE A DAY (CODE D FOR CHRONIC PAIN), NOTES: 06/08 17 8AM TAKING TIZANIDINE HCL 4 MG TABLET 1.5 TABLET ORALLY FOR SPSTICITY BID (WORKERS COMP), NOTES: 06/08 17 1600 TAKING SIMVASTATIN 20 MG TABLET 1 TABLET IN THE EVENING ORALLY ONCE A DAY, NOTES: 06/08/17 8PM TAKING AMLODIPINE BESYLATE 5 MG TABLET 1 TABLET ORALLY ONCE A DAY, NOTES: 06/08/17 8PM NOT-TAKING SIMVASTATIN 40 40MG TABLET ORAL DAILY MEDICATION LIST REVIEWED AND RECONCILED WITH THE PATIENT PAST MEDICAL HISTORY HYPERTENSION HYPOTHYROIDISM HX BACK PAIN HYPERLIPIDEMIA DM ( DIET CONTROLLED) ASTHMA (EXERCISE INDUSED) RENAL FAILURE ( CURRENTLY SEEING DR. ROME) ALLERGIES BACTRIM: SHAKES/TREMORS: ALLERGY ALL NSAIDS: RENAL FAILURE: CONTRAINDICATION REVIEW OF SYSTEMS REVIEWED BY: PROVIDER: EUGENE SALAS . CONSTITUTIONAL: ANY CHANGE IN YOUR MEDICAL CONDITION? NO . CHILLS NO . FEVER NO . INFECTION: DO YOU HAVE NEW INFECTIONS? NO . DO YOU HAVE HISTORY OF MRSA? NO . MUSCULOSKELETAL: ANY NEW PATTERNS OF PAIN OR NUMBNESS? NO . GASTROENTEROLOGY: ANY NEW CHANGE IN BOWEL CONTROL? NO . GENITOURINARY: ANY NEW CHANGE IN BLADDER CONTROL? NO . IS THERE A CHANCE YOU COULD BE ? NO . HEMATOLOGY/LYMPH: DO YOU TAKE ANY BLOOD THINNERS? (FOR EXAMPLE- COUMADIN, PLAVIX, AGGRENOX, PLATEL, PRADAXA, OR XARELTO) NO . WHEN WAS YOUR LAST DOSE? DATE: TIME: . NEUROLOGY: HAVE YOU FALLEN IN THE PAST 6 MONTHS? NO . ANY NEW EXTREMITY NUMBNESS OR WEAKNESS? NO . CARDIOLOGY: DO YOU HAVE A PACEMAKER OR DEFIBRILLATOR? NO . RESPIRATORY: HAVE YOU BEEN SICK IN THE PAST WEEK? NO . FEVER NO . FLU LIKE SYMPTOMS? NO . COUGH NO . INTEGUMENTARY: DO YOU HAVE ANY RASHES OR OPEN SORES? NO . ALLERGIC/IMMUNO: ARE YOU ALLERGIC TO SHELLFISH OR IV DYE? NO . ANY NEW ALLERGIES? NO . PSYCHIATRIC: DO YOU HAVE THOUGHTS OF HURTING YOURSELF OR SOMEONE ELSE? NO . ARE YOU ABUSED, NEGLECTED, OR IN AN UNSAFE ENVIRONMENT? NO . ENDOCRINOLOGY: ARE YOU DIABETIC? YES - BLOD SUGARS UNDER GOOD CONTROL . OTHER: DO YOU NEED ANY PRESCRIPTIONS? YES BACLOFIN TRAMADOL TIAZNADINE GABAPENTIN . IF YES, PLEASE LIST: ____ . ANY NEW PROBLEMS WITH YOUR MEDICATIONS? NO . WHEN DID YOU LAST EAT? ____ . WHEN DID YOU LAST DRINK? ____ . WHAT DID YOU LAST DRINK? ____ . NAME OF PERSON DRIVING YOU HOME? ____ . DO YOU HAVE ANY OTHER QUESTIONS OR CONCERNS NO . EXAMINATION GENERAL EXAMINATION: PSYCHALERT , ORIENTED X 3 , APPROPRIATE MOOD AND AFFECT , APPEARS VERY UNCOMFORTABLE. LUNGS:CLEAR TO AUSCULTATION BILATERALLY. HEART:HEART RATE REGULAR, SLOW. MUSCULOSKELETAL:GAIT ANTALGIC WITH LIMP ON RIGHT. SLOW TO RISE TO STANDING POSITION. MILD TENDERNESS OVER RIGHT SACRAL ILIAC JOINT. TENDER OVER LUMBOSACRAL AXIS. MINIMAL TRIGGER POINTS:, ELICITED WITH PALPATION OVER LUMBAR PARAVERTEBRAL MUSCLES AND INTO THE SACRUM.. ASSESSMENTS LUMBAR POST-LAMINECTOMY SYNDROME - M96.1 (PRIMARY) INTERVERTEBRAL DISC DISORDERS WITH RADICULOPATHY, LUMBAR REGION - M51.16 TREATMENT LUMBAR POST-LAMINECTOMY SYNDROME REFILL BACLOFEN TABLET, 10 MG, 2 TABS, ORALLY (WORKERS COMP), BEFORE BEDTIME NEEDED FOR SPASMS, 30 DAY(S), 60, REFILLS 2 REFILL GABAPENTIN CAPSULE, 300 MG, 1 CAPSULE, ORALLY (WORKERS COMP ), BID FOR PAIN, 30 DAY(S), 60, REFILLS 2 REFILL TRAMADOL HCL ER TABLET EXTENDED RELEASE 24 HOUR, 300 MG, 1 TABLET, ORALLY FOR PAIN (WORKERS COMP), ONCE A DAY (CODE D FOR CHRONIC PAIN), 90 DAY(S), 90, REFILLS 0 REFILL TIZANIDINE HCL TABLET, 4 MG, 1.5 TABLET, ORALLY FOR SPSTICITY, BID (WORKERS COMP), 30 DAY(S), 90 TABLET, REFILLS 2 NOTES: CONTINUE BACLOFEN ALT WITH TIZANIDINE FOR MUSCLE SPASMS, GABAPENTIN FOR NEUROPATHIC PAIN AND TRAMADOL FOR MORE SEVERE DISCOMFORT. CLINICAL NOTES: ISTOP REGISTRY REVIEWED AND DEMNOSTRATES COMPLLIANCE. (REF# [id number]) BRINGS IN MEDICATIONS WHICH IS APPROPRIATE FOR WHAT WAS DISPENSED. RECENT URINE TOXICOLOGY REVIEWED. NO UNAUTHORIZED MEDICATIONS. NO ILLICIT SUBSTANCES AND PRESCRIBED MEDICATIONS WERE PRESENT. PROCEDURES PN WORKMANS' COMP OPINION IN YOUR OPINION, WAS THE INCIDENT THAT THE PATIENT DESCRIBED THE COMPETENT MEDICAL CAUSE OF THIS INJURY/ILLNESS? YES ARE THE PATIENT'S COMPLAINTS CONSISTENT WITH HIS/HER HISTORY OF THE INJURY/ILLNESS? YES IS THE PATIENT'S HISTORY OF THE INJURY/ILLNESS CONSISTENT WITH YOUR OBJECTIVE FINDING? YES WHAT IS THE PERCENTAGE OF TEMPORARY IMPAIRMENT? MODERATE TO MARKED = 66.7% IS THE PATIENT WORKING? NO DOCTOR ON SITE: NORMA TURNER MD PROCEDURE CODES FA211 ESTABILISHED PATIENT [facility] FACILITY CHARGE DISPOSITION & COMMUNICATION FOLLOW UP 2-3 MONTHS (REASON: WC BACK) ELECTRONICALLY SIGNED BY EFRAIN CORONA ON 07/20/2017 AT 07:21 PM EDT DISCLAIMER : THIS IS A VISIT SUMMARY EXTRACTED FROM THE [employer] CHART. IT IS NOT A COPY OF THE [employer] PROGRESS NOTE. VIKY
== END ==
LOC: M PAIN 08:45
PROVIDERS: ATTEND Nurse Practitioner Family
DX: M96.1 Postlaminectomy syndrome, not elsewhere classified (principal); M51.16 Intervertebral disc disorders with radiculopathy, lumbar region; E03.9 Hypothyroidism, unspecified; E78.5 Hyperlipidemia, unspecified; E11.9 Type 2 diabetes mellitus without complications; J45.909 Unspecified asthma, uncomplicated; I12.9 Hypertensive chronic kidney disease with stage 1 through stage 4 chronic kidney disease, or unspecified chronic kidney disease; N18.9 Chronic kidney disease, unspecified; Z88.1 Allergy status to other antibiotic agents; Z88.6 Allergy status to analgesic agent; Z79.82 Long term (current) use of aspirin; Z79.891 Long term (current) use of opiate analgesic; Z79.899 Other long term (current) drug therapy

== ENCOUNTER → 2017-10-13 | Outpatient (CLI) | payer OTHER | LOC: M PAIN 13:30 | DX: G89.29 Other chronic pain (principal); M96.1 Postlaminectomy syndrome, not elsewhere classified; M51.16 Intervertebral disc disorders with radiculopathy, lumbar region; M79.1 Myalgia; I10 Essential (primary) hypertension; F17.210 Nicotine dependence, cigarettes, uncomplicated; E03.9 Hypothyroidism, unspecified; E78.5 Hyperlipidemia, unspecified; E11.9 Type 2 diabetes mellitus without complications; J45.909 Unspecified asthma, uncomplicated; Z79.82 Long term (current) use of aspirin; Z79.891 Long term (current) use of opiate analgesic; Z88.6 Allergy status to analgesic agent; Z88.1 Allergy status to other antibiotic agents; Z79.899 Other long term (current) drug therapy | CPT/HCPCS: G0463 ==

== ENCOUNTER → 2017-12-14 | Outpatient (CLI) | payer OTHER | LOC: M PAIN 11:15 | DX: M96.1 Postlaminectomy syndrome, not elsewhere classified (principal); M51.16 Intervertebral disc disorders with radiculopathy, lumbar region; M79.1 Myalgia; I10 Essential (primary) hypertension; E03.9 Hypothyroidism, unspecified; J45.909 Unspecified asthma, uncomplicated; N19 Unspecified kidney failure; E78.5 Hyperlipidemia, unspecified; Z79.82 Long term (current) use of aspirin; Z79.891 Long term (current) use of opiate analgesic; Z79.899 Other long term (current) drug therapy; Z88.8 Allergy status to other drugs, medicaments and biological substances | CPT/HCPCS: G0463 ==

== ENCOUNTER → 2018-04-13 | Outpatient (CLI) | payer OTHER ==
[~2018-04-13] MED LIST changes: -/FENO48TA OR; -ACTO30TA; -ALBU17IN INH; -ARTHROTEC PO; -ASPI81TA63 PO; -AVALIDE; -AVALIDE PO; -BACL10TA2 PO; -CARV6.25 PO; -COZA100T PO; -DARV100T PO; -DRIS50002 PO; -FLOM5CAP PO; -FOLI1TAB4 PO; -FOLI5CAP PO; -FOLI5INJ2 PO; -FOLIPOW28; -FURO20TA2 PO; -GLUC1000; -GLUC500T PO; -HYDR25TA6 OR; -HYDR50TA PO; -HYDROCHLOROTHIAZIDE PO; +ISOVUE-M 300 61% 15ML VIAL (Q9967) As Ordered; -KETO-28 OR; -LEVO125T PO; -LEVO150T6 PO; -LEVO150T7 PO; -LEVOXYL25 MCG; +LIDOCAINE 1% SDV INJ 30 ML VIAL As Ordered; -LISIPOW PO; -LODINE; -METO25TA2 PO; -NABU750T OR; -NAPR500T; -NEUR300C OR; -NEUR300C PO; -PROPRANOLOL PO; -PROS5TAB PO; -RYZOLT; -RYZOLT PO; -SIMV40TA2 OR; -VICO5TAB PO; -VITA100066 PO; -VITA500046 PO; -VITA500047 PO; -VITAMIN D50000 UNT OR; -VYTO10TA5; -ZANA4CAP; -ZANA4CAP PO; -ZETI10TA21 PO; -ZOCO20TA; -[UNRECOGNIZED DRUG - CODE]; -[UNRECOGNIZED DRUG - OTHER]; -[UNRECOGNIZED DRUG - OTHER]; +methylPREDNISolone SUSP 40 MG/ML (DEPO-medrol) VIAL (J1030) As Ordered
== END ==
LOC: M PAIN 08:30
DX: G89.29 Other chronic pain (principal); M51.17 Intervertebral disc disorders with radiculopathy, lumbosacral region; I12.9 Hypertensive chronic kidney disease with stage 1 through stage 4 chronic kidney disease, or unspecified chronic kidney disease; E03.9 Hypothyroidism, unspecified; E78.5 Hyperlipidemia, unspecified; E11.9 Type 2 diabetes mellitus without complications; J45.909 Unspecified asthma, uncomplicated; N18.9 Chronic kidney disease, unspecified; I25.2 Old myocardial infarction; F17.210 Nicotine dependence, cigarettes, uncomplicated; Z79.82 Long term (current) use of aspirin; Z79.899 Other long term (current) drug therapy; Z88.1 Allergy status to other antibiotic agents; Z88.6 Allergy status to analgesic agent; Z86.73 Personal history of transient ischemic attack (TIA), and cerebral infarction without residual deficits
CPT/HCPCS: J1030

== ENCOUNTER → 2018-05-07 | Outpatient (CLI) | payer OTHER | LOC: M PAIN 13:30 | DX: Z53.29 Procedure and treatment not carried out because of patient's decision for other reasons (principal) ==

== ENCOUNTER → 2018-05-28 | Outpatient (CLI) | payer OTHER | LOC: M PAIN 08:45 | DX: M47.816 Spondylosis without myelopathy or radiculopathy, lumbar region (principal); M51.17 Intervertebral disc disorders with radiculopathy, lumbosacral region; M79.1 Myalgia; E11.9 Type 2 diabetes mellitus without complications; I10 Essential (primary) hypertension; E03.9 Hypothyroidism, unspecified; E78.5 Hyperlipidemia, unspecified; J45.909 Unspecified asthma, uncomplicated; F17.210 Nicotine dependence, cigarettes, uncomplicated; I25.2 Old myocardial infarction; Z79.82 Long term (current) use of aspirin; Z79.891 Long term (current) use of opiate analgesic; Z79.899 Other long term (current) drug therapy; Z86.73 Personal history of transient ischemic attack (TIA), and cerebral infarction without residual deficits; Z88.1 Allergy status to other antibiotic agents; Z88.6 Allergy status to analgesic agent; Z87.448 Personal history of other diseases of urinary system | CPT/HCPCS: G0463 ==

== ENCOUNTER → 2018-07-30 | Outpatient (CLI) | payer OTHER | LOC: M PAIN 13:30 | DX: M47.816 Spondylosis without myelopathy or radiculopathy, lumbar region (principal); M51.17 Intervertebral disc disorders with radiculopathy, lumbosacral region; M79.10 Myalgia, unspecified site; I10 Essential (primary) hypertension; E03.9 Hypothyroidism, unspecified; E78.5 Hyperlipidemia, unspecified; E11.9 Type 2 diabetes mellitus without complications; J45.909 Unspecified asthma, uncomplicated; F17.210 Nicotine dependence, cigarettes, uncomplicated; N28.89 Other specified disorders of kidney and ureter; Z79.82 Long term (current) use of aspirin; Z79.899 Other long term (current) drug therapy; Z79.891 Long term (current) use of opiate analgesic; Z88.6 Allergy status to analgesic agent; Z88.2 Allergy status to sulfonamides | CPT/HCPCS: G0463 ==

== ENCOUNTER → 2018-10-08 | Outpatient (CLI) | payer OTHER ==
[~2018-10-08] MED LIST changes: +/FENO48TA OR; +ACTO30TA; +ALBU17IN INH; +ARTHROTEC PO; +ASPI81TA63 PO; +AVALIDE; +AVALIDE PO; +BACL10TA2 PO; +CARV6.25 PO; +COZA100T PO; +DARV100T PO; +DRIS50003 PO; +FLOM0.4C39 PO; +FOLI1TAB5 PO; +FOLI5CAP PO; +FOLI5INJ2 PO; +FOLIPOW28; +FURO20TA2 PO; +GLUC1000; +GLUC500T PO; +HYDR25TA6 OR; +HYDR50TA PO; +HYDROCHLOROTHIAZIDE PO; -ISOVUE-M 300 61% 15ML VIAL (Q9967) As Ordered; +KETO-28 OR; +LEVO125T PO; +LEVO150T6 PO; +LEVO150T7 PO; +LEVOXYL25 MCG; -LIDOCAINE 1% SDV INJ 30 ML VIAL As Ordered; +LISIPOW PO; +LODINE; +METO25TA2 PO; +NABU750T OR; +NAPR500T; +NEUR300C OR; +NEUR300C PO; +PROPRANOLOL PO; +PROS5TAB PO; +RYZOLT; +RYZOLT PO; +SIMV40TA2 OR; +VICO5TAB PO; +VITA100066 PO; +VITA500046 PO; +VITA500047 PO; +VITAMIN D50000 UNT OR; +VYTO10TA5; +ZANA4CAP; +ZANA4CAP PO; +ZETI10TA21 PO; +ZOCO20TA; +[UNRECOGNIZED DRUG - CODE]; +[UNRECOGNIZED DRUG - OTHER]; +[UNRECOGNIZED DRUG - OTHER]; -methylPREDNISolone SUSP 40 MG/ML (DEPO-medrol) VIAL (J1030) As Ordered
--- NOTE | 2018-10-26 23:41 | ECWPNPC ---
PATIENT NAME: ACOSTA FARRELL : 1955 GENDER: MALE VISIT DATE: 10/08/2018 DISCHARGE DATE: 10/08/18 1339 VISIT LOCKED DATE TIME: PHYSICIAN: NORMA ROMERO MD RESOURCE: NORMA ROMERO MD REASON FOR APPOINTMENT 1. WC BACK PAIN HISTORY OF PRESENT ILLNESS DEPRESSION SCREENING: PHQ-2 IN LAST TWO WEEKS HAVE YOU BEEN BOTHERED BY LITTLE INTEREST OR PLEASURE IN DOING THINGSNO FEELING DOWN, DEPRESSED, OR HOPELESSNO HISTORY OF PRESENT ILLNESS: PAIN THE PATIENT DESCRIBES THE PAIN... 63 YEAR OLD MALE PATIENT WITH A HISTORY OF CHRONIC LOW BACK PAIN. PATIENT DESCRIBES THE PAIN ACHING, BURNING, SHARP, STABBING, SORE, SHOOTING, AND HAVING IT ALL THE TIME WITH A PAIN SCORE OF 5-10/10 DEPENDING ON PHYSICAL ACTIVITY. 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 THE PATIENT STATES THAT PHYSICAL THERAPY DID NOT TOMBSTONE ERECTOR HELPER IN PAIN RELIEF. THE PATIENT STATES THAT THE PAIN RADIATES DOWN THE BACK OF HIS LEGS AND ACROSS HIS GROIN AND HIPS AREA. THE PATIENT STATES THAT HE HAS HIS EX STAYING WITH HIM TO HELP WITH EVERYDAY TASKS DUE TO HE'S NOT ABLE TO BECAUSE OF THE SEVERITY OF THE PAIN. PATIENT DENIES UNEXPLAINABLE WEIGHT LOSS, FEVER, CHILLS, NEW CHANGES ON HIS URINARY OR BOWEL CONTROL. FALL RISK SCREENING: SCREENING :NO FALLS IN THE PAST YEAR CURRENT MEDICATIONS TAKING VITAMIN D3 MAXIMUM STRENGTH 5000 UNIT CAPSULE 2 CAPSULES ORALLY 2 84266 UNIT CAPSULES ONCE WEEKLY TAKING LEVOTHYROXINE SODIUM 150 MCG TABLET 162.5 TOTAL MCG ORALLY ONCE A DAY TAKING ASPIRIN ADULT LOW STRENGTH 81 MG TABLET DELAYED RELEASE 1 TABLET ORALLY ONCE A DAY TAKING FINASTERIDE 5 MG TABLET 1 TABLET ORALLY ONCE A DAY TAKING FOLIC ACID 5 MG CAPSULE 1 CAPSULE ORALLY ONCE A DAY TAKING VENTOLIN HFA AEROSOL SOLUTION 2 PUFFS NEEDED INHALATION EVERY 4 HRS NEEDED TAKING FUROSEMIDE 20 MG TABLET 1 TABLET ORALLY ONCE A DAY TAKING HYDRALAZINE HCL 50 MG TABLET 1 TABLET ORALLY BID TAKING AMLODIPINE BESYLATE 5 MG TABLET 1 TABLET ORALLY ONCE A DAY TAKING SIMVASTATIN 40 40MG TABLET ORAL DAILY TAKING LOSARTAN POTASSIUM 50 MG TABLET 1 TABLET ORALLY ONCE A DAY TAKING BACLOFEN 10 MG TABLET 2 TABS ORALLY (WORKERS COMP) BEFORE BEDTIME NEEDED FOR SPASMS TAKING GABAPENTIN 300 MG CAPSULE 1 CAPSULE ORALLY 1 IN AM, 2 AT HS TAKING HYDROCODONE-ACETAMINOPHEN 10-325 MG TABLET 2 TABLET NEEDED ORALLY MDD 6 EVERY 4 HOURS NEEDED TAKING TRAMADOL HCL ER 300 MG TABLET EXTENDED RELEASE 24 HOUR 1 TABLET ORALLY FOR PAIN (WORKERS COMP) ONCE A DAY (CODE D FOR CHRONIC PAIN) TAKING TIZANIDINE HCL 4 MG TABLET 1.5 TABLET ORALLY FOR SPSTICITY BID (WORKERS COMP) DISCONTINUED SIMVASTATIN 20 MG TABLET 1 TABLET IN THE EVENING ORALLY ONCE A DAY MEDICATION LIST REVIEWED AND RECONCILED WITH THE PATIENT PAST MEDICAL HISTORY HYPERTENSION HYPOTHYROIDISM HX BACK PAIN HYPERLIPIDEMIA DM ( DIET CONTROLLED) ASTHMA (EXERCISE INDUSED) RENAL FAILURE ( CURRENTLY SEEING DR. ROME) ALLERGIES BACTRIM: SHAKES/TREMORS: ALLERGY ALL NSAIDS: RENAL FAILURE: CONTRAINDICATION SURGICAL HISTORY TONSILLECTOMY 1957 PIN INSERTED LEFT FEMUR 1973 PIN REMOVED LEFT FEMUR 1973 RIGHT CARPAL TUNNEL REPAIR VASECTOMY 1978 FAMILY HISTORY FATHER: 72 YRS, DIAGNOSED WITH HEART DISEASE MOTHER: 73 YRS, DIAGNOSED WITH CANCER SIBLINGS: ALIVE 1 BROTHER(S) , 1 SISTER(S) - HEALTHY. 1 SON(S) , 1 DAUGHTER(S) - HEALTHY. SOCIAL HISTORY GENERAL: TOBACCO USE ARE YOU A:CURRENT SMOKER CESSATION ENCOURAGED. ARE YOU INTERESTED IN QUITTING?READY TO QUIT COUNSELED THE PATIENT ON TOBACCO USE, CESSATION [id number]/14/2018 SMOKING CESSATION INFORMATION GIVEN05/28/2018 ALCOHOL SCREENING DID YOU HAVE A DRINK CONTAINING ALCOHOL IN THE PAST YEAR?YES HOW OFTEN DID YOU HAVE A DRINK CONTAINING ALCOHOL IN THE PAST YEAR?MONTHLY OR LESS (1 POINT) HOW MANY DRINKS DID YOU HAVE ON A TYPICAL DAY WHEN YOU WERE DRINKING IN THE PAST YEAR?1 OR 2 (0 POINTS) POINTS1 INTERPRETATIONNEGATIVE RESTORATIONIST [id number] NONE LANGUAGE LANGUAGES SPOKEN:ST [employer] 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 BILATERAL VISION IMPAIRED?YES :CORRECTIVE LENSES COGNITIVELY IMPAIRED?NO READINESS TO LEARN?YES OCCUPATION: RETIRED. DIET: NO ADDED SALT. EXERCISE: WALKS. MARITAL STATUS: .. OTHERS AT HOME: OTHER NON-RELATIVE. PAIN CLINIC PFS, CLERGY, PUBLIC HEALTH REFERRALS PFS REFERRAL NEEDED?NO CLERGY REFERRAL NEEDED?NO PUBLIC HEALTH REFERRAL NEEDED?NO WAS THE PROVIDER NOTIFIED OF ANY PERTINENT INFO?NO HAS THE PATIENT BEEN EDUCATED REGARDING HIS/HER PLAN OF CARE?YES HAS THE PATIENT BEEN EDUCATED REGARDING PAIN, THE RISK FOR PAIN, THE IMPORTANCE OF EFFECTIVE PAIN MANAGEMENT, AND THE PAIN ASSESSMENT PROCESS?YES ADVANCE DIRECTIVE ADVANCE DIRECTIVE DISCUSSED WITH PATIENT:YES HCP MARLIN FARRELL [phone] HOSPITALIZATION/MAJOR DIAGNOSTIC PROCEDURE TIA 1997 [place] 2000 REVIEW OF SYSTEMS REVIEWED BY: PROVIDER: NORMA ROMERO MD . CONSTITUTIONAL: ANY CHANGE IN YOUR MEDICAL CONDITION? NO . CHILLS NO . FEVER NO . INFECTION: DO YOU HAVE NEW INFECTIONS? NO . DO YOU HAVE HISTORY OF MRSA? NO . MUSCULOSKELETAL: ANY NEW PATTERNS OF PAIN OR NUMBNESS? NO . GASTROENTEROLOGY: ANY NEW CHANGE IN BOWEL CONTROL? NO . GENITOURINARY: ANY NEW CHANGE IN BLADDER CONTROL? NO . IS THERE A CHANCE YOU COULD BE ? NO . HEMATOLOGY/LYMPH: DO YOU TAKE ANY BLOOD THINNERS? (FOR EXAMPLE- COUMADIN, PLAVIX, AGGRENOX, PLATEL, PRADAXA, OR XARELTO) NO . WHEN WAS YOUR LAST DOSE? DATE: TIME: . NEUROLOGY: HAVE YOU FALLEN IN THE PAST 6 MONTHS? NO . ANY NEW EXTREMITY NUMBNESS OR WEAKNESS? NO . CARDIOLOGY: DO YOU HAVE A PACEMAKER OR DEFIBRILLATOR? NO . RESPIRATORY: HAVE YOU BEEN SICK IN THE PAST WEEK? YES . FEVER NO . FLU LIKE SYMPTOMS? NO . COUGH NO . INTEGUMENTARY: DO YOU HAVE ANY RASHES OR OPEN SORES? NO . ALLERGIC/IMMUNO: ARE YOU ALLERGIC TO SHELLFISH OR IV DYE? NO . ANY NEW ALLERGIES? NO . PSYCHIATRIC: DO YOU HAVE THOUGHTS OF HURTING YOURSELF OR SOMEONE ELSE? NO . ARE YOU ABUSED, NEGLECTED, OR IN AN UNSAFE ENVIRONMENT? NO . ENDOCRINOLOGY: ARE YOU DIABETIC? NO . OTHER: DO YOU NEED ANY PRESCRIPTIONS? YES . IF YES, PLEASE LIST: ____GABAPENTIN, TIZATIDINE, BACLOFEN . ANY NEW PROBLEMS WITH YOUR MEDICATIONS? NO . WHEN DID YOU LAST EAT? ____ . WHEN DID YOU LAST DRINK? ____ . WHAT DID YOU LAST DRINK? ____ . NAME OF PERSON DRIVING YOU HOME? ____ . DO YOU HAVE ANY OTHER QUESTIONS OR CONCERNS NO . VITAL SIGNS WT 245 LBS, HT 71 IN, BMI 34.17 INDEX, BP 146/94 MM HG, HR 58 /MIN, RR 18 /MIN, TEMP 97.0 F, OXYGEN SAT % 97%, SAFE IN ENV? (Y/N) Y, NA INITIALS AW 1215, REVIEWED BY: SILVIA. EXAMINATION GENERAL EXAMINATION: PATIENT IS ALERT O X 3 AND COOPERATIVE. ANTALGIC GAIT. RIGHT LEG IS WEAKER THAN THE LEFT WITH EXTENSION AND FLEXION. STRAIGHT LEG RAISE OF THE RIGHT LEG IS POSITIVE AT 45 DEGREES FOR RADICULOPATHY. MRI OF THE LUMBAR SPINE DONE ON 10/06/16 SHOWS BULGING DISC AT MULTIPLE LEVELS. ASSESSMENTS INTERVERTEBRAL DISC DISORDER WITH RADICULOPATHY OF LUMBOSACRAL REGION - M51.17 (PRIMARY) TREATMENT INTERVERTEBRAL DISC DISORDER WITH RADICULOPATHY OF LUMBOSACRAL REGION CLINICAL NOTES: WE DISCUSSED SEVERAL ISSUES WITH MR. FARRELL'S PAIN MANAGEMENT CASE. DUE TO THE PATIENT EXPRESSING THAT HE HAS OVER 2 MONTHS OF GOOD PAIN RELIEF WITH A LUMBAR EPIDURAL STEROID INJECTION, I WOULD LIKE TO MOVE FORWARD WITH A LUMBAR EPIDURAL STEROID INJECTION AT THIS TIME. WE DISCUSSED THE BENEFITS, RISKS, AND ALTERNATIVES OF THE INJECTION AND THE PATIENT WOULD LIKE TO PROCEED. I WILL REQUEST AUTHORIZATION FOR THE PROCEDURE AND BOOK AFTER APPROVED. I ALSO ADVISED THE PATIENT TO BRING ALL MEDICATIONS TO EVERY APPOINTMENT. THE PATIENT REPORTS UNDERSTANDING. I WOULD ALSO LIKE FOR THE PATIENT TO DO A URINE TOXICOLOGY TEST AT TODAY'S APPOINTMENT. THE PATIENT WILL FOLLOW UP WITH ME IN 2 MONTHS. INSTRUCTIONS WERE GIVEN, QUESTIONS WERE ANSWERED, PATIENT REPORTS UNDERSTANDING AND AGREES WITH THE PLAN. I, MELISSA RANKIN, DOCUMENTED THE ABOVE INFORMATION ACTING A SCRIBE FOR DR. ROMERO. I HAVE REVIEWED THE ABOVE DOCUMENT, WRITTEN BY MELISSA INFANTE AND I VERIFY THAT IT IS ACCURATE. OTHERS REFILL TIZANIDINE HCL TABLET, 4 MG, 1.5 TABLET, ORALLY FOR SPSTICITY, BID (WORKERS COMP) MDD3, 30 DAY(S), 90, REFILLS 2 REFILL BACLOFEN TABLET, 10 MG, 2 TABS, ORALLY (WORKERS COMP), BEFORE BEDTIME NEEDED FOR SPASMS, 30 DAY(S), 60, REFILLS 2 REFILL GABAPENTIN CAPSULE, 300 MG, 1 CAPSULE, ORALLY, 1 IN AM, 2 AT HS, 30 DAY(S), 90, REFILLS 2 PROCEDURES PN WORKMANS' COMP OPINION IN YOUR OPINION, WAS THE INCIDENT THAT THE PATIENT DESCRIBED THE COMPETENT MEDICAL CAUSE OF THIS INJURY/ILLNESS? YES ARE THE PATIENT'S COMPLAINTS CONSISTENT WITH HIS/HER HISTORY OF THE INJURY/ILLNESS? YES IS THE PATIENT'S HISTORY OF THE INJURY/ILLNESS CONSISTENT WITH YOUR OBJECTIVE FINDING? YES WHAT IS THE PERCENTAGE OF TEMPORARY IMPAIRMENT? MODERATE TO MARKED = 66.7% IS THE PATIENT WORKING? NO DOCTOR ON SITE: NORMA TURNER MD PROCEDURE CODES FA211 ESTABILISHED PATIENT [facility] CHARGE G8427 CURRENT MEDS W/DOSAGES DOCUMENTED G8730 PAIN ASSESS POS TOOL F/U PLAN DOC DISPOSITION & COMMUNICATION FOLLOW UP 2 MONTHS ELECTRONICALLY SIGNED BY NORMA ROMERO MD, MD ON 10/26/2018 AT 05:39 PM EST DISCLAIMER : THIS IS A VISIT SUMMARY EXTRACTED FROM THE [employer] CHART. IT IS NOT A COPY OF THE [employer] PROGRESS NOTE. RANID
== END ==
LOC: M PAIN 12:15
PROVIDERS: ATTEND Anesthesiology
DX: M51.17 Intervertebral disc disorders with radiculopathy, lumbosacral region (principal); I10 Essential (primary) hypertension; E03.9 Hypothyroidism, unspecified; E78.5 Hyperlipidemia, unspecified; E11.9 Type 2 diabetes mellitus without complications; J45.909 Unspecified asthma, uncomplicated; N28.9 Disorder of kidney and ureter, unspecified; F17.210 Nicotine dependence, cigarettes, uncomplicated; I25.2 Old myocardial infarction; Z79.82 Long term (current) use of aspirin; Z79.891 Long term (current) use of opiate analgesic; Z79.899 Other long term (current) drug therapy; Z88.6 Allergy status to analgesic agent; Z86.73 Personal history of transient ischemic attack (TIA), and cerebral infarction without residual deficits; Z88.2 Allergy status to sulfonamides

== ENCOUNTER → 2018-11-23 | Outpatient (CLI) | payer OTHER ==
[~2018-11-23] MED LIST changes: +FOLI1TAB11 PO; -FOLI1TAB5 PO
== END ==
LOC: M PAIN 11:00
PROVIDERS: ATTEND Anesthesiology
DX: Z53.29 Procedure and treatment not carried out because of patient's decision for other reasons (principal)

== ENCOUNTER → 2018-12-13 | Outpatient (CLI) | payer OTHER | LOC: M PAIN 10:45 | PROVIDERS: ATTEND Anesthesiology | DX: M54.5 Low back pain (principal); Z53.29 Procedure and treatment not carried out because of patient's decision for other reasons ==

== ENCOUNTER → 2018-12-29 | Outpatient (CLI) | payer OTHER ==
[~2018-12-29] MED LIST changes: +ISOVUE-M 300 61% 15ML VIAL (Q9967) As Ordered ONE; +LIDOCAINE 1% SDV INJ 30 ML VIAL As Ordered ONE; +MIDAZOLAM INJ 2 MG/2 ML VIAL (J2250) As Ordered ONE; +fentaNYL 100 MCG/2 ML INJECTION (J3010) As Ordered ONE; +methylPREDNISolone SUSP 40 MG/ML (DEPO-medrol) VIAL (J1030) As Ordered ONE
--- NOTE | 2018-12-29 12:55 | REP ---
Partial lumbar spine series: Three views . History: Injection procedure for pain. 21 seconds of fluoroscopy time is reported. Findings: A sequence of three fluoroscopically obtained last image hold procedural spot radiographs of the lumbar spine document needle position and contrast injection associated with injection procedure. Electronically Signed by Corwin Andrew MD 12/29/2018 12:47 P
--- NOTE | 2019-01-09 00:28 | ECWPNPC ---
PATIENT NAME: ACOSTA FARRELL : 1955 GENDER: MALE VISIT DATE: 12/29/2018 DISCHARGE DATE: 12/29/18 1203 VISIT LOCKED DATE TIME: PHYSICIAN: NORMA ROMERO MD RESOURCE: NORMA ROMERO MD REASON FOR APPOINTMENT 1. LESI WITH IV SEDATION HISTORY OF PRESENT ILLNESS HISTORY OF PRESENT ILLNESS: PAIN THE PATIENT DESCRIBES THE PAIN... 63 YEAR OLD MALE PATIENT WITH A HISTORY OF CHRONIC LOW BACK PAIN. THE PATIENT DESCRIBES THE PAIN ACHING, BURNING, TENDER, SHARP, STABBING, SHOOTING, AND CONTINUOUS WITH A PAIN SCORE OF 6-10/10 DEPENDING ON PHYSICAL ACTIVITY. 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 THE PATIENT SAYS THAT THE PAIN STARTS IN HIS LOW BACK MAINLY ON THE RIGHT SIDE, BUT RADIATES DOWN HIS LEFT LEG. THE PATIENT WAS HAVING SHAKING EPISODES IN THE PAST, BUT SAYS THAT THEY WERE NOT SEIZURES AND HIS CONDITION IS CURRENTLY STABLE REGARDING THE SHAKING. THE PATIENT SAYS THE SHAKING MAY HAVE BEEN WEATHER RELATED. PATIENT DENIES UNEXPLAINABLE WEIGHT LOSS, FEVER, CHILLS, NEW CHANGES ON HIS URINARY OR BOWEL CONTROL. FALL RISK SCREENING: SCREENING : NO FALLS IN THE PAST YEAR. CURRENT MEDICATIONS TAKING TIZANIDINE HCL 4 MG TABLET 1.5 TABLET ORALLY FOR SPSTICITY BID (WORKERS COMP) MDD3, NOTES: 12/29/18 AM TAKING BACLOFEN 10 MG TABLET 2 TABS ORALLY (WORKERS COMP) BEFORE BEDTIME NEEDED FOR SPASMS, NOTES: 12/28/18 TAKING GABAPENTIN 300 MG CAPSULE 1 CAPSULE ORALLY 1 IN AM, 2 AT HS, NOTES: 12/29/18 TAKING VITAMIN D3 MAXIMUM STRENGTH 5000 UNIT CAPSULE 4 CAPSULES ORALLY 61963 UNIT CAPSULES ONCE WEEKLY, NOTES: 12/28/18 TAKING LEVOTHYROXINE SODIUM 175 MCG TABLET 162.5 TOTAL MCG ORALLY ONCE A DAY, NOTES: 12/29/18 AM TAKING ASPIRIN ADULT LOW STRENGTH 81 MG TABLET DELAYED RELEASE 1 TABLET ORALLY ONCE A DAY, NOTES: 12/29/18 AM TAKING FINASTERIDE 5 MG TABLET 1 TABLET ORALLY ONCE A DAY, NOTES: 12/28/18 TAKING FOLIC ACID 5 MG CAPSULE 1 CAPSULE ORALLY ONCE A DAY, NOTES: 12/29/18 TAKING VENTOLIN HFA AEROSOL SOLUTION 2 PUFFS NEEDED INHALATION EVERY 4 HRS NEEDED, NOTES: 12/29/18 AM TAKING FUROSEMIDE 20 MG TABLET 1 TABLET ORALLY ONCE A DAY, NOTES: 12/29/18 AM TAKING HYDRALAZINE HCL 25 MG TABLET 1 TABLET ORALLY BID, NOTES: 12/29/18 AM TAKING AMLODIPINE BESYLATE 5 MG TABLET 1 TABLET ORALLY ONCE A DAY, NOTES: 12/28/18 TAKING SIMVASTATIN 40 40MG TABLET ORAL DAILY, NOTES: 12/28/18 TAKING LOSARTAN POTASSIUM 50 MG TABLET 1 TABLET ORALLY ONCE A DAY, NOTES: 12/28/18 TAKING KEPPRA 500 MG TABLET 1 TABLET ORALLY TWICE A DAY, NOTES: 12/28/18 TAKING HYDROCODONE-ACETAMINOPHEN 10-325 MG TABLET 2 TABLET NEEDED ORALLY MDD 6 EVERY 4 HOURS NEEDED, NOTES: 12/26/18 NOT-TAKING TRAMADOL HCL ER 300 MG TABLET EXTENDED RELEASE 24 HOUR 1 TABLET ORALLY FOR PAIN (WORKERS COMP) ONCE A DAY (CODE D FOR CHRONIC PAIN) NOT-TAKING TRAMADOL HCL 50 MG TABLET 1 TABLET NEEDED ORALLY FOR PAIN EVERY 6 HRS MDD 4, NOTES: PLEASE CALL DR ROMERO BEFORE USING THIS MEDICATION MEDICATION LIST REVIEWED AND RECONCILED WITH THE PATIENT PAST MEDICAL HISTORY HYPERTENSION HYPOTHYROIDISM HX BACK PAIN HYPERLIPIDEMIA DM ( DIET CONTROLLED) ASTHMA (EXERCISE INDUSED) RENAL FAILURE ( CURRENTLY SEEING DR. ROME) ALLERGIES BACTRIM: SHAKES/TREMORS: ALLERGY ALL NSAIDS: RENAL FAILURE: CONTRAINDICATION SURGICAL HISTORY TONSILLECTOMY 1957 PIN INSERTED LEFT FEMUR 1973 PIN REMOVED LEFT FEMUR 1973 RIGHT CARPAL TUNNEL REPAIR VASECTOMY 1978 FAMILY HISTORY FATHER: 72 YRS, DIAGNOSED WITH HEART DISEASE MOTHER: 73 YRS, DIAGNOSED WITH CANCER SIBLINGS: ALIVE 1 BROTHER(S) , 1 SISTER(S) - HEALTHY. 1 SON(S) , 1 DAUGHTER(S) - HEALTHY. SOCIAL HISTORY GENERAL: TOBACCO USE ARE YOU A:CURRENT SMOKER CESSATION ENCOURAGED. ARE YOU INTERESTED IN QUITTING?READY TO QUIT COUNSELED THE PATIENT ON TOBACCO USE, CESSATION [id number]/06/2019 SMOKING CESSATION INFORMATION GIVEN12/29/2018 ALCOHOL SCREENING DID YOU HAVE A DRINK CONTAINING ALCOHOL IN THE PAST YEAR?YES HOW OFTEN DID YOU HAVE A DRINK CONTAINING ALCOHOL IN THE PAST YEAR?MONTHLY OR LESS (1 POINT) HOW MANY DRINKS DID YOU HAVE ON A TYPICAL DAY WHEN YOU WERE DRINKING IN THE PAST YEAR?1 OR 2 (0 POINTS) POINTS1 INTERPRETATIONNEGATIVE [employer] [id number] NONE LANGUAGE LANGUAGES SPOKEN:GREEK 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 BILATERAL VISION IMPAIRED?YES :CORRECTIVE LENSES COGNITIVELY IMPAIRED?NO READINESS TO LEARN?YES OCCUPATION: RETIRED. DIET: NO ADDED SALT. EXERCISE: WALKS. MARITAL STATUS: .. OTHERS AT HOME: OTHER NON-RELATIVE. PAIN CLINIC PFS, CLERGY, PUBLIC HEALTH REFERRALS PFS REFERRAL NEEDED?NO CLERGY REFERRAL NEEDED?NO PUBLIC HEALTH REFERRAL NEEDED?NO WAS THE PROVIDER NOTIFIED OF ANY PERTINENT INFO?NO HAS THE PATIENT BEEN EDUCATED REGARDING HIS/HER PLAN OF CARE?YES HAS THE PATIENT BEEN EDUCATED REGARDING PAIN, THE RISK FOR PAIN, THE IMPORTANCE OF EFFECTIVE PAIN MANAGEMENT, AND THE PAIN ASSESSMENT PROCESS?YES ADVANCE DIRECTIVE ADVANCE DIRECTIVE DISCUSSED WITH PATIENT:YES HCP MARLIN FARRELL [phone] HOSPITALIZATION/MAJOR DIAGNOSTIC PROCEDURE TIA 1996 [place] 2000 REVIEW OF SYSTEMS REVIEWED BY: PROVIDER: NORMA ROMERO MD . CONSTITUTIONAL: ANY CHANGE IN YOUR MEDICAL CONDITION? NO . CHILLS NO . FEVER NO . INFECTION: DO YOU HAVE NEW INFECTIONS? NO . DO YOU HAVE HISTORY OF MRSA? NO . MUSCULOSKELETAL: ANY NEW PATTERNS OF PAIN OR NUMBNESS? NO . GASTROENTEROLOGY: ANY NEW CHANGE IN BOWEL CONTROL? NO . GENITOURINARY: ANY NEW CHANGE IN BLADDER CONTROL? NO . IS THERE A CHANCE YOU COULD BE ? NO . HEMATOLOGY/LYMPH: DO YOU TAKE ANY BLOOD THINNERS? (FOR EXAMPLE- COUMADIN, PLAVIX, AGGRENOX, PLATEL, PRADAXA, OR XARELTO) NO . WHEN WAS YOUR LAST DOSE? DATE: TIME: . NEUROLOGY: HAVE YOU FALLEN IN THE PAST 12 MONTHS? NO . ANY NEW EXTREMITY NUMBNESS OR WEAKNESS? NO . CARDIOLOGY: DO YOU HAVE A PACEMAKER OR DEFIBRILLATOR? NO . RESPIRATORY: HAVE YOU BEEN SICK IN THE PAST WEEK? NO . FEVER NO . FLU LIKE SYMPTOMS? NO . COUGH NO . INTEGUMENTARY: DO YOU HAVE ANY RASHES OR OPEN SORES? NO . ALLERGIC/IMMUNO: ARE YOU ALLERGIC TO IV DYE? NO . ANY NEW ALLERGIES? NO . PSYCHIATRIC: DO YOU HAVE THOUGHTS OF HURTING YOURSELF OR SOMEONE ELSE? NO . ARE YOU ABUSED, NEGLECTED, OR IN AN UNSAFE ENVIRONMENT? NO . ENDOCRINOLOGY: ARE YOU DIABETIC? YES, FS 135 @ HOME 12/29/18 0800 . OTHER: DO YOU NEED ANY PRESCRIPTIONS? NO . IF YES, PLEASE LIST: ____ . ANY NEW PROBLEMS WITH YOUR MEDICATIONS? NO . WHEN DID YOU LAST EAT? 12/28/18 2300 . WHEN DID YOU LAST DRINK? 12/29/18 0300 . WHAT DID YOU LAST DRINK? [employer] [place] [employer] . NAME OF PERSON DRIVING YOU HOME? [place] . DO YOU HAVE ANY OTHER QUESTIONS OR CONCERNS NO . VITAL SIGNS WT 251 LBS, HT 71 IN, BMI 35.00 INDEX, BP 90/58 MM HG, REPEAT BP 96/67 MM HG, HR 83 /MIN, RR 18 /MIN, TEMP 97.0 F, OXYGEN SAT % 92%, NA INITIALS AW 1001LET NURSE KNOW ABOUT BPB/P RECHECK, DR ROMERO AWARE. EM. EXAMINATION GENERAL EXAMINATION: PATIENT IS ALERT O X 3 AND COOPERATIVE. LUNGS CLEAR, TO AUSCULTATION. HEART: NO MURMURS OR GALLOPS; FACIAL CRANIAL NERVES ARE GROSSLY NORMAL. GOOD SYMMETRY OF FACIAL MUSCLE MOVEMENT. NORMAL VISUAL TELLO. LEFT LEG IS WEAKER AT EXTENSION AND FLEXION STRAIGHT LEG RAISE OF THE LEFT LEG IS POSITIVE AT 45 DEGREES FOR RADICULOPATHY. MRI OF THE LUMBAR SPINE DONE ON 10/06/2016 SHOWS BULGING DISCS AT MULTIPLE LEVELS. ASSESSMENTS INTERVERTEBRAL DISC DISORDER WITH RADICULOPATHY OF LUMBAR REGION - M51.16 (PRIMARY) TREATMENT INTERVERTEBRAL DISC DISORDER WITH RADICULOPATHY OF LUMBAR REGION CLINICAL NOTES: WE DISCUSSED SEVERAL ISSUES WITH MR. FARRELL'S PAIN MANAGEMENT CASE. DUE TO THE LUMBAR RADICULOPATHY, I WOULD LIKE TO MOVE FORWARD WITH A LUMBAR EPIDURAL STEROID INJECTION AT THIS TIME. WE DISCUSSED THE BENEFITS, RISKS, AND ALTERNATIVES OF THE INJECTION AND THE PATIENT WOULD LIKE TO PROCEED. THE PATIENT WOULD LIKE TO MOVE FORWARD WITH IV SEDATION DUE TO PAIN AND ANXIETY ASSOCIATED WITH THE PROCEDURE AND FOR SAFETY DUE TO THE PATIENT'S SHAKING EPISODES. INSTRUCTIONS WERE GIVEN, QUESTIONS WERE ANSWERED, PATIENT REPORTS UNDERSTANDING AND AGREES WITH THE PLAN. I, GIOVANNI DUMONT, DOCUMENTED THE ABOVE INFORMATION ACTING A SCRIBE FOR DR. ROMERO. I HAVE REVIEWED THE ABOVE DOCUMENT, WRITTEN BY GIOVANNI DUMONT SCRIBEnrique AND I VERIFY THAT IT IS ACCURATE. PROCEDURES PRE PROCEDURE DIAGNOSIS LUMBAR DISC DISORDER WITH RADICULOPATHY POST PROCEDURE DIAGNOSIS LUMBAR DISC DISORDER WITH RADICULOPATHY PROCEDURE LUMBAR EPIDURAL STEROID INJECTION UNDER FLUOROSCOPIC GUIDANCE SURGEON DR. NORMA ROMERO HEMATOLOGY TECHNOLOGIST NONE ANESTHESIA LOCAL WITH IV SEDATION PRE PROCEDURE NOTE THE PATIENT HAS A HISTORY OF CHRONIC LOW BACK PAIN. I EVALUATE THE PATIENT AND REVIEWED THE CHART. I WENT OVER THE RISKS, ALTERNATIVES, AND BENEFITS ASSOCIATED WITH THIS PROCEDURE. THE PATIENT WOULD LIKE TO PROCEED AND GIVE CONSENT TO PERFORMED THE PROCEDURE. PATIENT WOULD LIKE TO MOVE FORWARD WITH IV SEDATION DUE TO DISCOMFORT, PAIN AND ANXIETY ASSOCIATED WITH THE PROCEDURE. THE PATIENT DENIES UNEXPLAINABLE WEIGHT LOSS, FEVER, CHILLS, OR NEW CHANGES IN URINARY OR BOWEL CONTROL. DESCRIPTION OF PROCEDURE THE PATIENT WAS BROUGHT TO THE PROCEDURE ROOM AND PLACED IN THE PRONE POSITION. THE LUMBOSACRAL AREA WAS CLEANED WITH BETADINE SOLUTION AND DRAPED ASEPTICALLY. THE PROCEDURE WAS DONE UNDER STERILE CONDITIONS. I CHECKED LATERALITY AND THE LEVEL WHERE THE PROCEDURE WAS GOING TO BE PERFORMED WITH THE PATIENT AND THE SUPPORTING STAFF AT THE MOMENT OF THE TIME OUT IN THE PROCEDURE ROOM. UNDER FLUOROSCOPIC GUIDANCE, THE TARGET POINT WAS SELECTED AT THE INTERLAMINAR LEVEL OF L4-L5. LIDOCAINE WAS USED TO NUMB THE SKIN AND THE SUBCUTANEOUS TISSUE BELOW IT. EPIDURAL TUOHY NEEDLE, 17-GAUGE, WAS ADVANCED UNDER FLUOROSCOPIC GUIDANCE AND FOLLOWING PATIENT FEEDBACK UNTIL THE EPIDURAL SPACE WAS REACHED, 7 CM DEEP INTO THE SKIN BY THE LOSS OF RESISTANCE TECHNIQUE. ISOVUE M DYE 30%, 0.25 ML, WAS INJECTED SHOWING ADEQUATE SPREAD OF THE DYE. THEN, A SOLUTION OF 3 ML OF NORMAL SALINE WITH DEPO-MEDROL 60 MG WAS INJECTED SLOWLY FOLLOWING PATIENT FEEDBACK. PATIENT RECEIVED VERSED 2 MG AND FENTANYL 300 MCG IV DIVIDED DOSES. THERE WAS NO EVIDENCE OF BLOOD, PARESTHESIA OR CEREBROSPINAL FLUID DURING THE PROCEDURE. THE PATIENT WAS SENT TO THE RECOVERY ROOM. THE PATIENT WAS MOVING THE EXTREMITIES AND DOING WELL. THERE WAS NO COMPLICATION DURING THE PROCEDURE. FLUOROSCOPY TIME WAS 21 SECONDS. FACE TO FACE TIME WAS 20 MINUTES. POST PROCEDURE NOTE THE PATIENT WILL BE SEEN IN A FOLLOW UP IN THE NEXT FEW WEEKS. INSTRUCTIONS WERE GIVEN, QUESTIONS WERE ANSWERED, AND THE PATIENT EXPRESSED UNDERSTANDING AND AGREES WITH THE PLAN. I, GIOVANNI DUMONT, DOCUMENTED THE ABOVE INFORMATION ACTING A SCRIBE FOR DR. ROMEOR. I HAVE REVIEWED THE ABOVE DOCUMENT, WRITTEN BY GIOVANNI INFANTE AND I VERIFY THAT IT IS ACCURATE. PN WORKMANS' COMP OPINION IN YOUR OPINION, WAS THE INCIDENT THAT THE PATIENT DESCRIBED THE COMPETENT MEDICAL CAUSE OF THIS INJURY/ILLNESS? YES ARE THE PATIENT'S COMPLAINTS CONSISTENT WITH HIS/HER HISTORY OF THE INJURY/ILLNESS? YES IS THE PATIENT'S HISTORY OF THE INJURY/ILLNESS CONSISTENT WITH YOUR OBJECTIVE FINDING? YES WHAT IS THE PERCENTAGE OF TEMPORARY IMPAIRMENT? MODERATE TO MARKED = 66.7% IS THE PATIENT WORKING? NO DOCTOR ON SITE: NORMA TURNER MD DIAGNOSTIC IMAGING [facility] FLUORO GUIDE SPINE INJECTION (PAIN)[id number] PROCEDURE CODES 6045F RADXPS IN END [id number] PXD [id number] LUMBAR/SACRAL W/ IMAGING 91109 MOD SED SAME PHYS/QHP 5/>YRS DISPOSITION & COMMUNICATION FOLLOW UP 2 WEEKS ELECTRONICALLY SIGNED BY NORMA ROMERO MD, MD ON 01/08/2019 AT 07:50 PM EDT DISCLAIMER : THIS IS A VISIT SUMMARY EXTRACTED FROM THE [employer] CHART. IT IS NOT A COPY OF THE [employer] PROGRESS NOTE. VIKY
== END ==
LOC: M PAIN 09:45
PROVIDERS: ATTEND Anesthesiology
DX: G89.29 Other chronic pain (principal); M51.16 Intervertebral disc disorders with radiculopathy, lumbar region; E11.9 Type 2 diabetes mellitus without complications; I10 Essential (primary) hypertension; J45.909 Unspecified asthma, uncomplicated; E03.9 Hypothyroidism, unspecified; E78.5 Hyperlipidemia, unspecified; Z72.0 Tobacco use; I25.2 Old myocardial infarction; Z79.82 Long term (current) use of aspirin; Z79.899 Other long term (current) drug therapy; Z88.1 Allergy status to other antibiotic agents; Z88.6 Allergy status to analgesic agent; Z87.448 Personal history of other diseases of urinary system
CPT/HCPCS: 62323; 99152; J1030; J2250; J3010; Q9967

== ENCOUNTER → 2019-01-31 | Outpatient (CLI) | payer OTHER ==
[~2019-01-31] MED LIST changes: -/FENO48TA OR; -ISOVUE-M 300 61% 15ML VIAL (Q9967) As Ordered ONE; -LIDOCAINE 1% SDV INJ 30 ML VIAL As Ordered ONE; -MIDAZOLAM INJ 2 MG/2 ML VIAL (J2250) As Ordered ONE; +TRIC1TAB OR; -fentaNYL 100 MCG/2 ML INJECTION (J3010) As Ordered ONE; -methylPREDNISolone SUSP 40 MG/ML (DEPO-medrol) VIAL (J1030) As Ordered ONE
--- NOTE | 2019-02-15 02:10 | ECWPNPC ---
PATIENT NAME: ACOSTA FARRELL : 1955 GENDER: MALE VISIT DATE: 01/31/2019 DISCHARGE DATE: 01/31/19 1039 VISIT LOCKED DATE TIME: PHYSICIAN: NORMA ROMERO MD RESOURCE: NORMA ROMERO MD REASON FOR APPOINTMENT 1. POST PROC HISTORY OF PRESENT ILLNESS HISTORY OF PRESENT ILLNESS: PAIN THE PATIENT DESCRIBES THE PAIN... 63 YEAR OLD MALE PATIENT WITH A HISTORY OF CHRONIC LOW BACK PAIN. THE PATIENT DESCRIBES THE PAIN ACHING, SORE, STABBING, SHOOTING, AND CONTINUOUS WITH A PAIN SCORE OF 1-4/10 DEPENDING ON PHYSICAL ACTIVITY. 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 THE PATIENT SAYS THAT HIS PAIN IS IN HIS LOW BACK AND RADIATES DOWN HIS LEFT LEG. THE PATIENT WAS HERE FOR A LUMBAR EPIDURAL STEROID INJECTION ON 12/29/2018 AND REPORTS HAVING MORE THAN 80% PAIN RELIEF AND AN INCREASE IN FUNCTIONALITY FOLLOWING THE INJECTION. THE PATIENT SAYS THAT AFTER THE INJECTION HE HAS BEEN ABLE TO REDUCE HIS MEDICATIONS, WALK BETTER, AND PERFORM DAILY ACTIVITIES EASIER. PATIENT DENIES UNEXPLAINABLE WEIGHT LOSS, FEVER, CHILLS, NEW CHANGES ON HIS URINARY OR BOWEL CONTROL. FALL RISK SCREENING: SCREENING :NO FALLS REPORTED IN THE LAST YEAR CURRENT MEDICATIONS TAKING TIZANIDINE HCL 4 MG TABLET 1.5 TABLET ORALLY FOR SPSTICITY BID (WORKERS COMP) MDD3 TAKING BACLOFEN 10 MG TABLET 2 TABS ORALLY (WORKERS COMP) BEFORE BEDTIME NEEDED FOR SPASMS TAKING GABAPENTIN 300 MG CAPSULE 1 CAPSULE ORALLY 1 IN AM, 2 AT HS TAKING VITAMIN D3 MAXIMUM STRENGTH 5000 UNIT CAPSULE 4 CAPSULES ORALLY 04061 UNIT CAPSULES ONCE WEEKLY TAKING LEVOTHYROXINE SODIUM 175 MCG TABLET 162.5 TOTAL MCG ORALLY ONCE A DAY TAKING ASPIRIN ADULT LOW STRENGTH 81 MG TABLET DELAYED RELEASE 1 TABLET ORALLY ONCE A DAY TAKING FINASTERIDE 5 MG TABLET 1 TABLET ORALLY ONCE A DAY TAKING FOLIC ACID 5 MG CAPSULE 1 CAPSULE ORALLY ONCE A DAY TAKING VENTOLIN HFA AEROSOL SOLUTION 2 PUFFS NEEDED INHALATION EVERY 4 HRS NEEDED TAKING FUROSEMIDE 20 MG TABLET 1 TABLET ORALLY ONCE A DAY TAKING AMLODIPINE BESYLATE 5 MG TABLET 1 TABLET ORALLY ONCE A DAY TAKING SIMVASTATIN 40 40MG TABLET ORAL DAILY TAKING LOSARTAN POTASSIUM 50 MG TABLET 1 TABLET ORALLY ONCE A DAY TAKING KEPPRA 500 MG TABLET 1 TABLET ORALLY TWICE A DAY TAKING HYDROCODONE-ACETAMINOPHEN 10-325 MG TABLET 2 TABLET NEEDED ORALLY MDD 6 EVERY 4 HOURS NEEDED NOT-TAKING HYDRALAZINE HCL 25 MG TABLET 1 TABLET ORALLY BID NOT-TAKING TRAMADOL HCL ER 300 MG TABLET EXTENDED RELEASE 24 HOUR 1 TABLET ORALLY FOR PAIN (WORKERS COMP) ONCE A DAY (CODE D FOR CHRONIC PAIN) NOT-TAKING TRAMADOL HCL 50 MG TABLET 1 TABLET NEEDED ORALLY FOR PAIN EVERY 6 HRS MDD 4, NOTES: PLEASE CALL DR ROMERO BEFORE USING THIS MEDICATION MEDICATION LIST REVIEWED AND RECONCILED WITH THE PATIENT PAST MEDICAL HISTORY HYPERTENSION HYPOTHYROIDISM HX BACK PAIN HYPERLIPIDEMIA DM ( DIET CONTROLLED) ASTHMA (EXERCISE INDUSED) RENAL FAILURE ( CURRENTLY SEEING DR. ROME) ALLERGIES BACTRIM: SHAKES/TREMORS - ALLERGY ALL NSAIDS: RENAL FAILURE - CONTRAINDICATION SURGICAL HISTORY TONSILLECTOMY 1957 PIN INSERTED LEFT FEMUR 1973 PIN REMOVED LEFT FEMUR 1973 RIGHT CARPAL TUNNEL REPAIR VASECTOMY 1978 FAMILY HISTORY FATHER: 72 YRS, DIAGNOSED WITH HEART DISEASE MOTHER: 73 YRS, CANCER SIBLINGS: ALIVE 1 BROTHER(S) , 1 SISTER(S) - HEALTHY. 1 SON(S) , 1 DAUGHTER(S) - HEALTHY. SOCIAL HISTORY GENERAL: TOBACCO USE ARE YOU A:CURRENT SMOKER CESSATION ENCOURAGED. ARE YOU INTERESTED IN QUITTING?READY TO QUIT COUNSELED THE PATIENT ON TOBACCO USE, CESSATION [id number]/06/2019 SMOKING CESSATION INFORMATION GIVEN01/31/2019 LATEX QUESTIONNAIRE LATEX ALLERGY : HAVE YOU EVER DEVELOPED ANY TYPE OF REACTION AFTER HANDLING LATEX PRODUCTS SUCH RUBBER GLOVES, CONDOMS, DIAPHRAGMS, BALLOONS, SOCKS, OR UNDERWEAR?NO LATEX ALLERGY : HAVE YOU EVER DEVELOPED ANY TYPE OF REACTION DURING OR AFTER DENTAL APPOINTMENT, VAGINAL/RECTAL EXAMINATION, SURGICAL PROCEDURE, OR ANY OTHER EXPOSURE?NO LATEX RISK : HAVE YOU EVER HAD ANY DIFFICULTY BREATHING OR HIVES AFTER EATING OR HANDLING ANY FRUITS, OR VEGETABLES; SUCH KIWI, BANANAS, STONE FRUITS, OR CHESTNUTSNO LATEX RISK : DO YOU HAVE A PREVIOUS PERSONAL HISTORY OF MORE THAN NINE SURGERIES, SPINA BIFIDA, OR REPEATED CATHERTIZATIONS? 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 DIET: NO ADDED SALT. EXERCISE: WALKS. MARITAL STATUS: .. OTHERS AT HOME: OTHER NON-RELATIVE. PAIN CLINIC PFS, CLERGY, PUBLIC HEALTH REFERRALS PFS REFERRAL NEEDED?NO CLERGY REFERRAL NEEDED?NO PUBLIC HEALTH REFERRAL NEEDED?NO WAS THE PROVIDER NOTIFIED OF ANY PERTINENT INFO?YES HAS THE PATIENT BEEN EDUCATED REGARDING HIS/HER PLAN OF CARE?YES HAS THE PATIENT BEEN EDUCATED REGARDING PAIN, THE RISK FOR PAIN, THE IMPORTANCE OF EFFECTIVE PAIN MANAGEMENT, AND THE PAIN ASSESSMENT PROCESS?YES ADVANCE DIRECTIVE ADVANCE DIRECTIVE DISCUSSED WITH PATIENT:YES HCP MARLIN FARRELL [phone] HOSPITALIZATION/MAJOR DIAGNOSTIC PROCEDURE TIA 1996 ID 2000 REVIEW OF SYSTEMS REVIEWED BY: PROVIDER: NORMA ROMERO MD . CONSTITUTIONAL: ANY CHANGE IN YOUR MEDICAL CONDITION? NO . CHILLS NO . FEVER NO . INFECTION: DO YOU HAVE NEW INFECTIONS? NO . DO YOU HAVE HISTORY OF MRSA? NO . MUSCULOSKELETAL: ANY NEW PATTERNS OF PAIN OR NUMBNESS? YES, PAIN AND NUMBNESS HAS DECREASED SINCE PROCEDURE. . GASTROENTEROLOGY: ANY NEW CHANGE IN BOWEL CONTROL? NO . GENITOURINARY: ANY NEW CHANGE IN BLADDER CONTROL? NO . IS THERE A CHANCE YOU COULD BE ? NO . HEMATOLOGY/LYMPH: DO YOU TAKE ANY BLOOD THINNERS? (FOR EXAMPLE- COUMADIN, PLAVIX, AGGRENOX, PLATEL, PRADAXA, OR XARELTO) YES, ASA . WHEN WAS YOUR LAST DOSE? DATE: TIME: . NEUROLOGY: HAVE YOU FALLEN IN THE PAST 12 MONTHS? NO . ANY NEW EXTREMITY NUMBNESS OR WEAKNESS? NO . CARDIOLOGY: DO YOU HAVE A PACEMAKER OR DEFIBRILLATOR? NO . RESPIRATORY: HAVE YOU BEEN SICK IN THE PAST WEEK? NO . FEVER NO . FLU LIKE SYMPTOMS? NO . COUGH NO . INTEGUMENTARY: DO YOU HAVE ANY RASHES OR OPEN SORES? NO . ALLERGIC/IMMUNO: ARE YOU ALLERGIC TO IV DYE? NO . ANY NEW ALLERGIES? NO . PSYCHIATRIC: DO YOU HAVE THOUGHTS OF HURTING YOURSELF OR SOMEONE ELSE? NO . ARE YOU ABUSED, NEGLECTED, OR IN AN UNSAFE ENVIRONMENT? NO . ENDOCRINOLOGY: ARE YOU DIABETIC? YES . OTHER: DO YOU NEED ANY PRESCRIPTIONS? YES, BACLOFEN, TIZANIDINE AND GABAPENTIN . IF YES, PLEASE LIST: ____ . ANY NEW PROBLEMS WITH YOUR MEDICATIONS? NO . WHEN DID YOU LAST EAT? ____ . WHEN DID YOU LAST DRINK? ____ . WHAT DID YOU LAST DRINK? ____ . NAME OF PERSON DRIVING YOU HOME? ____ . DO YOU HAVE ANY OTHER QUESTIONS OR CONCERNS NO . VITAL SIGNS WT 250.4 LBS, HT 71 IN, BMI 34.92 INDEX, BP 129/94 MM HG, HR 70 /MIN, RR 18 /MIN, TEMP 96.8 F, OXYGEN SAT % 97%, SAFE IN ENV? (Y/N) Y, NA INITIALS SC 09:34, REVIEWED BY: NATALEE. EXAMINATION GENERAL EXAMINATION: PATIENT IS ALERT O X 3 AND COOPERATIVE. MRI OF THE LUMBAR SPINE DONE ON 10/06/2016 SHOWS BULGING DISCS AT MULTIPLE LEVELS. ASSESSMENTS INTERVERTEBRAL DISC DISORDER WITH RADICULOPATHY OF LUMBAR REGION - M51.16 (PRIMARY) TREATMENT INTERVERTEBRAL DISC DISORDER WITH RADICULOPATHY OF LUMBAR REGION CLINICAL NOTES: WE DISCUSSED SEVERAL ISSUES WITH MR. FARRELL'S PAIN MANAGEMENT CASE. THE PATIENT REPORTS DOING WELL, SO WE WILL NOT BE MOVING FORWARD WITH ANY INTERVENTIONS AT THIS TIME. THE PATIENT WILL CONTINUE USING THE SAME MEDICATION REGIMENT. THE PATIENT WILL FOLLOW UP IN 3 MONTHS. INSTRUCTIONS WERE GIVEN, QUESTIONS WERE ANSWERED, PATIENT REPORTS UNDERSTANDING AND AGREES WITH THE PLAN. I, GIOVANNI DUMONT, DOCUMENTED THE ABOVE INFORMATION ACTING A SCRIBE FOR DR. ROMERO. I HAVE REVIEWED THE ABOVE DOCUMENT, WRITTEN BY GIOVANNI INFANTE AND I VERIFY THAT IT IS ACCURATE. . OTHERS REFILL TIZANIDINE HCL TABLET, 4 MG, 1.5 TABLET, ORALLY FOR SPSTICITY, BID (WORKERS COMP) MDD3, 30 DAY(S), 90, REFILLS 2 REFILL BACLOFEN TABLET, 10 MG, 2 TABS, ORALLY (WORKERS COMP), BEFORE BEDTIME NEEDED FOR SPASMS, 30 DAY(S), 60, REFILLS 2 REFILL GABAPENTIN CAPSULE, 300 MG, 1 CAPSULE, ORALLY, 1 IN AM, 2 AT HS, 30 DAY(S), 90, REFILLS 2 PROCEDURES PN WORKMANS' COMP OPINION IN YOUR OPINION, WAS THE INCIDENT THAT THE PATIENT DESCRIBED THE COMPETENT MEDICAL CAUSE OF THIS INJURY/ILLNESS? YES ARE THE PATIENT'S COMPLAINTS CONSISTENT WITH HIS/HER HISTORY OF THE INJURY/ILLNESS? YES IS THE PATIENT'S HISTORY OF THE INJURY/ILLNESS CONSISTENT WITH YOUR OBJECTIVE FINDING? YES WHAT IS THE PERCENTAGE OF TEMPORARY IMPAIRMENT? MODERATE TO MARKED = 66.7% IS THE PATIENT WORKING? NO DOCTOR ON SITE: NORMA TURNER MD PROCEDURE CODES FA211 ESTABILISHED PATIENT [facility] FACILITY CHARGE [id number] CURRENT MEDS W/DOSAGES DOCUMENTED [id number] PAIN ASSESS POS TOOL F/U PLAN DOC DISPOSITION & COMMUNICATION FOLLOW UP 3 MONTHS ELECTRONICALLY SIGNED BY NORMA ROMERO MD, MD ON 02/14/2019 AT 06:25 PM EDT DISCLAIMER : THIS IS A VISIT SUMMARY EXTRACTED FROM THE [employer] CHART. IT IS NOT A COPY OF THE [employer] PROGRESS NOTE. VIKY
== END ==
LOC: M PAIN 09:30
PROVIDERS: ATTEND Anesthesiology
DX: M51.16 Intervertebral disc disorders with radiculopathy, lumbar region (principal); G89.29 Other chronic pain; E11.9 Type 2 diabetes mellitus without complications; I10 Essential (primary) hypertension; E03.9 Hypothyroidism, unspecified; E78.5 Hyperlipidemia, unspecified; J45.909 Unspecified asthma, uncomplicated; F17.210 Nicotine dependence, cigarettes, uncomplicated; I25.2 Old myocardial infarction; Z79.82 Long term (current) use of aspirin; Z79.899 Other long term (current) drug therapy; Z88.1 Allergy status to other antibiotic agents; Z88.6 Allergy status to analgesic agent; Z87.448 Personal history of other diseases of urinary system; Z86.73 Personal history of transient ischemic attack (TIA), and cerebral infarction without residual deficits

== ENCOUNTER → 2019-05-30 | Outpatient (CLI) | payer OTHER ==
--- NOTE | 2019-06-08 01:42 | ECWPNPC ---
PATIENT NAME: ACOSTA FARRELL : 1955 GENDER: MALE VISIT DATE: 05/30/2019 DISCHARGE DATE: 05/30/19 1256 VISIT LOCKED DATE TIME: PHYSICIAN: NORMA ROMERO MD RESOURCE: NORMA ROMERO MD REASON FOR APPOINTMENT 1. W/C BACK HISTORY OF PRESENT ILLNESS HISTORY OF PRESENT ILLNESS: PAIN THE PATIENT DESCRIBES THE PAIN... 63 YEAR OLD MALE PATIENT WITH A HISTORY OF CHRONIC LOW BACK AND LEG PAIN. THE PATIENT DESCRIBES THE PAIN ACHING, BURNING, SHOOTING, STABBING, SORE, TENDER, SHARP, AND CONTINUOUS WITH A PAIN SCORE OF 0-10/10 DEPENDING ON PHYSICAL ACTIVITY. 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 THE PATIENT STATES HIS PAIN BEGINS IN HIS LOW BACK AND RADIATES DOWN HIS LEGS, BUT HIS RIGHT LEG IS AFFECTED MORE. THE PATIENT SAYS HIS PAIN IS AFFECTING HIS ABILITY TO PERFORM HIS DAILY ACTIVITIES, SUCH CLEANING HIS HOUSE, GROCERY SHOPPING, STANDING AND WALKING FOR MORE THAN 5 MINUTES BEFORE NEEDING TO SIT DOWN. THE PATIENT STATES HE IS CURRENTLY USING TIZANIDINE AND BACLOFEN FOR SPASMS AND HYDROCODONE-ACETAMINOPHEN 10-325 MG WHEN HIS PAIN IS SEVERE. THE PATIENT RECEIVED A LUMBAR EPIDURAL ON 12/29/2018 THAT PROVIDED 5 MONTHS OF PAIN RELIEF, WITH INCREASED FUNCTIONALITY AND MOBILITY WELL. THE PATIENT SAYS HE WOULD LIKE ANOTHER LUMBAR EPIDURAL DUE TO HIS PAIN HAS RETURNED AND IS INCREASING. PATIENT DENIES UNEXPLAINABLE WEIGHT LOSS, FEVER, CHILLS, NEW CHANGES ON HIS URINARY OR BOWEL CONTROL. FALL RISK SCREENING: SCREENING :NO FALLS REPORTED IN THE LAST YEAR CURRENT MEDICATIONS TAKING TIZANIDINE HCL 4 MG TABLET 1.5 TABLET ORALLY FOR SPSTICITY BID (WORKERS COMP) MDD3 TAKING BACLOFEN 10 MG TABLET 2 TABS ORALLY (WORKERS COMP) BEFORE BEDTIME NEEDED FOR SPASMS TAKING GABAPENTIN 300 MG CAPSULE 1 CAPSULE ORALLY 1 IN AM, 2 AT HS TAKING VITAMIN D3 MAXIMUM STRENGTH 5000 UNIT CAPSULE 4 CAPSULES ORALLY 50455 UNIT CAPSULES ONCE WEEKLY TAKING ASPIRIN ADULT LOW STRENGTH 81 MG TABLET DELAYED RELEASE 1 TABLET ORALLY ONCE A DAY TAKING FINASTERIDE 5 MG TABLET 1 TABLET ORALLY ONCE A DAY TAKING FOLIC ACID 5 MG CAPSULE 1 CAPSULE ORALLY ONCE A DAY TAKING VENTOLIN HFA AEROSOL SOLUTION 2 PUFFS NEEDED INHALATION EVERY 4 HRS NEEDED TAKING FUROSEMIDE 20 MG TABLET 1 TABLET ORALLY ONCE A DAY TAKING AMLODIPINE BESYLATE 5 MG TABLET 1 TABLET ORALLY ONCE A DAY TAKING SIMVASTATIN 40 40MG TABLET ORAL DAILY TAKING LOSARTAN POTASSIUM 50 MG TABLET 1 TABLET ORALLY ONCE A DAY TAKING HYDROCODONE-ACETAMINOPHEN 10-325 MG TABLET 2 TABLET NEEDED ORALLY MDD 6 EVERY 4 HOURS NEEDED TAKING LEVOTHYROXINE SODIUM 150 MCG TABLET 162.5 TOTAL MCG ORALLY ONCE A DAY TAKING LEVOTHYROXINE SODIUM 25 MCG TABLET 1/2 TABLET ON AN EMPTY STOMACH IN THE MORNING ORALLY ONCE A DAY NOT-TAKING KEPPRA 500 MG TABLET 1 TABLET ORALLY TWICE A DAY NOT-TAKING HYDRALAZINE HCL 25 MG TABLET 1 TABLET ORALLY BID NOT-TAKING TRAMADOL HCL ER 300 MG TABLET EXTENDED RELEASE 24 HOUR 1 TABLET ORALLY FOR PAIN (WORKERS COMP) ONCE A DAY (CODE D FOR CHRONIC PAIN) NOT-TAKING TRAMADOL HCL 50 MG TABLET 1 TABLET NEEDED ORALLY FOR PAIN EVERY 6 HRS MDD 4, NOTES: PLEASE CALL DR ROMERO BEFORE USING THIS MEDICATION MEDICATION LIST REVIEWED AND RECONCILED WITH THE PATIENT PAST MEDICAL HISTORY HYPERTENSION HYPOTHYROIDISM HX BACK PAIN HYPERLIPIDEMIA DM ( DIET CONTROLLED) ASTHMA (EXERCISE INDUSED) RENAL FAILURE ( CURRENTLY SEEING DR. ROME) ALLERGIES BACTRIM: SHAKES/TREMORS - ALLERGY ALL NSAIDS: RENAL FAILURE - CONTRAINDICATION SURGICAL HISTORY TONSILLECTOMY 1957 PIN INSERTED LEFT FEMUR 1973 PIN REMOVED LEFT FEMUR 1973 RIGHT CARPAL TUNNEL REPAIR VASECTOMY 1978 FAMILY HISTORY FATHER: 72 YRS, DIAGNOSED WITH HEART DISEASE MOTHER: 73 YRS, CANCER SIBLINGS: ALIVE 1 BROTHER(S) , 1 SISTER(S) - HEALTHY. 1 SON(S) , 1 DAUGHTER(S) - HEALTHY. SOCIAL HISTORY GENERAL: TOBACCO USE ARE YOU A:CURRENT SMOKER CESSATION ENCOURAGED. ARE YOU INTERESTED IN QUITTING?READY TO QUIT COUNSELED THE PATIENT ON TOBACCO USE, CESSATION [id number]/06/2019 SMOKING CESSATION INFORMATION GIVEN01/31/2019 OTHERS AT HOME: OTHER NON-RELATIVE. DIET: NO ADDED SALT. LANGUAGE LANGUAGES SPOKEN:SUDANESE EXERCISE: WALKS. 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 BILATERAL VISION IMPAIRED?YES :CORRECTIVE LENSES COGNITIVELY IMPAIRED?NO READINESS TO LEARN?YES PAIN CLINIC PFS, CLERGY, PUBLIC HEALTH REFERRALS PFS REFERRAL NEEDED?NO CLERGY REFERRAL NEEDED?NO PUBLIC HEALTH REFERRAL NEEDED?NO WAS THE PROVIDER NOTIFIED OF ANY PERTINENT INFO?YES HAS THE PATIENT BEEN EDUCATED REGARDING HIS/HER PLAN OF CARE?YES HAS THE PATIENT BEEN EDUCATED REGARDING PAIN, THE RISK FOR PAIN, THE IMPORTANCE OF EFFECTIVE PAIN MANAGEMENT, AND THE PAIN ASSESSMENT PROCESS?YES LATEX QUESTIONNAIRE LATEX ALLERGY : HAVE YOU EVER DEVELOPED ANY TYPE OF REACTION AFTER HANDLING LATEX PRODUCTS SUCH RUBBER GLOVES, CONDOMS, DIAPHRAGMS, BALLOONS, SOCKS, OR UNDERWEAR?NO LATEX ALLERGY : HAVE YOU EVER DEVELOPED ANY TYPE OF REACTION DURING OR AFTER DENTAL APPOINTMENT, VAGINAL/RECTAL EXAMINATION, SURGICAL PROCEDURE, OR ANY OTHER EXPOSURE?NO LATEX RISK : HAVE YOU EVER HAD ANY DIFFICULTY BREATHING OR HIVES AFTER EATING OR HANDLING ANY FRUITS, OR VEGETABLES; SUCH KIWI, BANANAS, STONE FRUITS, OR CHESTNUTSNO LATEX RISK : DO YOU HAVE A PREVIOUS PERSONAL HISTORY OF MORE THAN NINE SURGERIES, SPINA BIFIDA, OR REPEATED CATHERIZATIONS? NO LATEX RISK : ARE YOU FREQUENTLY EXPOSED TO LATEX PRODUCTS IN YOUR OCCUPATION?NO DATE ASKED : 01/31/2019 ADVANCE DIRECTIVE ADVANCE DIRECTIVE DISCUSSED WITH PATIENT:YES HCP MARLIN FARRELL [phone] AMISH [id number] NONE MARITAL STATUS: .. ALCOHOL SCREENING DID YOU HAVE A DRINK CONTAINING ALCOHOL IN THE PAST YEAR?YES HOW OFTEN DID YOU HAVE A DRINK CONTAINING ALCOHOL IN THE PAST YEAR?MONTHLY OR LESS (1 POINT) POINTS1 INTERPRETATIONNEGATIVE HOW MANY DRINKS DID YOU HAVE ON A TYPICAL DAY WHEN YOU WERE DRINKING IN THE PAST YEAR?1 OR 2 (0 POINTS) OCCUPATION: RETIRED. HOSPITALIZATION/MAJOR DIAGNOSTIC PROCEDURE TIA 1996 [place] 2000 REVIEW OF SYSTEMS REVIEWED BY: PROVIDER: NORMA ROMERO MD . CONSTITUTIONAL: ANY CHANGE IN YOUR MEDICAL CONDITION? NO . CHILLS NO . FEVER NO . INFECTION: DO YOU HAVE NEW INFECTIONS? NO . DO YOU HAVE HISTORY OF MRSA? NO . MUSCULOSKELETAL: ANY NEW PATTERNS OF PAIN OR NUMBNESS? NO . GASTROENTEROLOGY: ANY NEW CHANGE IN BOWEL CONTROL? YES . GENITOURINARY: ANY NEW CHANGE IN BLADDER CONTROL? NO . IS THERE A CHANCE YOU COULD BE ? NO . HEMATOLOGY/LYMPH: DO YOU TAKE ANY BLOOD THINNERS? (FOR EXAMPLE- COUMADIN, PLAVIX, AGGRENOX, PLATEL, PRADAXA, OR XARELTO) YES - ASPIRIN 81 MG DAILY . WHEN WAS YOUR LAST DOSE? DATE: TIME: . NEUROLOGY: HAVE YOU FALLEN IN THE PAST 12 MONTHS? NO . ANY NEW EXTREMITY NUMBNESS OR WEAKNESS? NO . CARDIOLOGY: DO YOU HAVE A PACEMAKER OR DEFIBRILLATOR? NO . RESPIRATORY: HAVE YOU BEEN SICK IN THE PAST WEEK? NO . FEVER NO . FLU LIKE SYMPTOMS? NO . COUGH NO . INTEGUMENTARY: DO YOU HAVE ANY RASHES OR OPEN SORES? NO . ALLERGIC/IMMUNO: ARE YOU ALLERGIC TO IV DYE? NO . ANY NEW ALLERGIES? NO . PSYCHIATRIC: DO YOU HAVE THOUGHTS OF HURTING YOURSELF OR SOMEONE ELSE? NO . ARE YOU ABUSED, NEGLECTED, OR IN AN UNSAFE ENVIRONMENT? NO . ENDOCRINOLOGY: ARE YOU DIABETIC? YES . OTHER: DO YOU NEED ANY PRESCRIPTIONS? YES . IF YES, PLEASE LIST: TIZANIDINE, BACLOFEN, GABAPENTIN, HYDROCODONE . ANY NEW PROBLEMS WITH YOUR MEDICATIONS? NO . WHEN DID YOU LAST EAT? ____ . WHEN DID YOU LAST DRINK? ____ . WHAT DID YOU LAST DRINK? ____ . NAME OF PERSON DRIVING YOU HOME? ____ . DO YOU HAVE ANY OTHER QUESTIONS OR CONCERNS NO . VITAL SIGNS WT 247 LBS, HT 71 IN, BMI 34.45 INDEX, BP 131/85 MM HG, HR 62 /MIN, RR 18 /MIN, TEMP 97.3 F, OXYGEN SAT % 99%, NA INITIALS AW 1132, REVIEWED BY: GARY. EXAMINATION GENERAL EXAMINATION: PATIENT IS ALERT O X 3 AND COOPERATIVE. ANTALGIC WALK. PATIENT IS LIMPING FROM THE RIGHT LEG. RIGHT LEG IS WEAKER AT EXTENSION AND FLEXION. STRAIGHT LEG RAISE OF THE RIGHT LEG IS POSITIVE AT 50 DEGREES. MRI OF THE LUMBAR SPINE DONE ON 10/06/2016 SHOWS BULGING DISCS AT MULTIPLE LEVELS. 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 TREATMENT LUMBAR POST-LAMINECTOMY SYNDROME REFILL HYDROCODONE-ACETAMINOPHEN TABLET, 10-325 MG, 2 TABLET NEEDED, ORALLY, EVERY 6 HOURS FOR PAIN (CHRONIC PAIN CODE D) MDD 4, 60 DAYS, 120, REFILLS 0 START NARCAN LIQUID, 4 MG/0.1ML, DIRECTED, NASALLY START NALOXONE HCL SOLUTION CARTRIDGE, 0.4 MG/ML, DIRECTED, INJECTION (WORKERS COMP), NEEDED FOR RESPIRATORY DEPRESION, 30 DAYS, 1, REFILLS 0 START HYDROCODONE-ACETAMINOPHEN TABLET, 10-325 MG, 1 TABLET NEEDED, ORALLY FOR PAIN (CODE D FOR CHRONIC PAIN), EVERY 6 HRS MDD4 ( WORKERS COMP), 60 DAYS, 120, REFILLS 0 REFILL TIZANIDINE HCL TABLET, 4 MG, 1.5 TABLET, ORALLY FOR SPSTICITY, BID (WORKERS COMP) MDD3, 30 DAY(S), 90, REFILLS 2 REFILL BACLOFEN TABLET, 10 MG, 2 TABS, ORALLY (WORKERS COMP), BEFORE BEDTIME NEEDED FOR SPASMS, 30 DAY(S), 60, REFILLS 2 REFILL GABAPENTIN CAPSULE, 300 MG, 1 CAPSULE, ORALLY, 1 IN AM, 2 AT HS, 30 DAY(S), 90, REFILLS 2 CLINICAL NOTES: WE DISCUSSED SEVERAL ISSUES WITH MR. FARRELL'S PAIN MANAGEMENT CASE. DUE TO THE LUMBAR RADICULOPATHY AND ABOUT 5 MONTHS OF GOOD PAIN RELIEF AND INCREASED FUNCTIONALITY FROM HIS PREVIOUS LUMBAR EPIDURAL INJECTION, I WOULD LIKE TO MOVE FORWARD WITH A LUMBAR EPIDURAL STEROID INJECTION AT THIS TIME. WE DISCUSSED THE BENEFITS, RISKS, AND ALTERNATIVES OF THE INJECTION AND THE PATIENT WOULD LIKE TO PROCEED. I REFILLED THE HYDROCODONE-ACETAMINOPHEN TABLET 10-325 MG, WHICH WAS LAST REFILLED IN NOVEMBER AND HAS LASTED FOR THE PATIENT UNTIL NOW. THE PATIENT SAYS HE TAKES THE LEAST AMOUNT AND ONLY WHEN HIS PAIN IS SEVERE. I REFILLED THE REST OF HIS MEDICATIONS TODAY AND PRESCRIBED NARCAN AND NALOXONE FOR RESPIRATORY DEPRESSION. I ADVISED THE PATIENT TO LET HIS FAMILY KNOW ABOUT THE MEDICATION IN CASE HE NEEDS IT. URINE TOXICOLOGY DONE ON 10/13/2018 SHOWS CONCURRENT RESULTS. ANOTHER URINE TOXICOLOGY WILL BE PERFORMED TODAY. I AM ORDERING FOR A NEW, UPDATED LUMBAR MRI TO BE DONE SINCE THE PATIENT HAS HAD INCIDENT OF BOWEL ISSUES AND THE LAST MRI WAS DONE THREE YEARS AGO. THE NEW MRI IS TO BE COMPARED WITH THE OLD STUDY. THE PATIENT WILL FOLLOW UP WITH THE NURSE PRACTITIONER IN 3 MONTHS. I WAS WITH THE PATIENT FOR MORE THAN 30 MINUTES AND MORE THAN HALF OF THAT TIME WAS SPENT DISCUSSING THE PATIENTS CARE, PROCEDURE OPTIONS, MEDICATION MANAGEMENT, AND ADDRESSING ANY QUESTIONS. INSTRUCTIONS WERE GIVEN, QUESTIONS WERE ANSWERED, PATIENT REPORTS UNDERSTANDING AND AGREES WITH THE PLAN. I, KIM BAIG, DOCUMENTED THE ABOVE INFORMATION ACTING A SCRIBE FOR DR. ROMERO. I HAVE REVIEWED THE ABOVE DOCUMENT, WRITTEN BY KIM BAIG SCRIBEnrique AND I VERIFY THAT IT IS ACCURATE. . PROCEDURES PN WORKMANS' COMP OPINION IN YOUR OPINION, WAS THE INCIDENT THAT THE PATIENT DESCRIBED THE COMPETENT MEDICAL CAUSE OF THIS INJURY/ILLNESS? YES ARE THE PATIENT'S COMPLAINTS CONSISTENT WITH HIS/HER HISTORY OF THE INJURY/ILLNESS? YES IS THE PATIENT'S HISTORY OF THE INJURY/ILLNESS CONSISTENT WITH YOUR OBJECTIVE FINDING? YES WHAT IS THE PERCENTAGE OF TEMPORARY IMPAIRMENT? MODERATE TO MARKED = 66.7% IS THE PATIENT WORKING? NO DOCTOR ON SITE: NORMA TURNER MD PROCEDURE CODES FA211 ESTABILISHED PATIENT [facility] CHARGE G8427 CURRENT MEDS W/DOSAGES DOCUMENTED G8730 PAIN ASSESS POS TOOL F/U PLAN DOC DISPOSITION & COMMUNICATION FOLLOW UP 3 WEEKS (REASON: LESI) ELECTRONICALLY SIGNED BY NORMA ROMERO MD, MD ON 06/07/2019 AT 12:51 PM EDT DISCLAIMER : THIS IS A VISIT SUMMARY EXTRACTED FROM THE [facility] CHART. IT IS NOT A COPY OF THE [facility] PROGRESS NOTE. VIKY
== END ==
LOC: M PAIN 11:30
PROVIDERS: ATTEND Anesthesiology
DX: M96.1 Postlaminectomy syndrome, not elsewhere classified (principal); M51.17 Intervertebral disc disorders with radiculopathy, lumbosacral region; I10 Essential (primary) hypertension; E03.9 Hypothyroidism, unspecified; E78.5 Hyperlipidemia, unspecified; E11.9 Type 2 diabetes mellitus without complications; J45.990 Exercise induced bronchospasm; F17.210 Nicotine dependence, cigarettes, uncomplicated; Z88.1 Allergy status to other antibiotic agents; Z88.6 Allergy status to analgesic agent; Z86.73 Personal history of transient ischemic attack (TIA), and cerebral infarction without residual deficits; I25.2 Old myocardial infarction; Z79.82 Long term (current) use of aspirin; Z79.899 Other long term (current) drug therapy

== ENCOUNTER → 2019-07-20 | Outpatient (CLI) | payer OTHER | LOC: M PAIN 09:45 | PROVIDERS: ATTEND Anesthesiology | DX: M51.16 Intervertebral disc disorders with radiculopathy, lumbar region (principal); Z53.21 Procedure and treatment not carried out due to patient leaving prior to being seen by health care provider ==

== ENCOUNTER → 2019-07-28 | Outpatient (CLI) | payer OTHER ==
[~2019-07-28] MED LIST changes: +ISOVUE-M 300 61% 15ML VIAL (Q9967) As Ordered ONE; +LIDOCAINE 1% SDV INJ 30 ML VIAL As Ordered ONE; +methylPREDNISolone SUSP 40 MG/ML (DEPO-medrol) VIAL (J1030) As Ordered ONE
--- NOTE | 2019-07-28 14:03 | REP ---
Partial lumbar spine series: Three views . History: Injection procedure for pain. 15 seconds of fluoroscopy time is reported. Findings: A sequence of three fluoroscopically obtained last image hold procedural spot radiographs of the lumbar spine document needle position and contrast injection associated with injection procedure. Electronically Signed by Corwin Andrew MD 07/28/2019 01:54 P
== END ==
LOC: M PAIN 10:15
PROVIDERS: ATTEND Anesthesiology
DX: M51.16 Intervertebral disc disorders with radiculopathy, lumbar region (principal); I10 Essential (primary) hypertension; E03.9 Hypothyroidism, unspecified; E78.5 Hyperlipidemia, unspecified; E11.9 Type 2 diabetes mellitus without complications; J45.909 Unspecified asthma, uncomplicated; F17.210 Nicotine dependence, cigarettes, uncomplicated; N28.89 Other specified disorders of kidney and ureter; Z88.2 Allergy status to sulfonamides; Z88.5 Allergy status to narcotic agent
CPT/HCPCS: 62323; J1030; Q9967

== ENCOUNTER → 2019-08-12 | Outpatient (CLI) | payer OTHER ==
[~2019-08-12] MED LIST changes: -ISOVUE-M 300 61% 15ML VIAL (Q9967) As Ordered ONE; -LIDOCAINE 1% SDV INJ 30 ML VIAL As Ordered ONE; -methylPREDNISolone SUSP 40 MG/ML (DEPO-medrol) VIAL (J1030) As Ordered ONE
--- NOTE | 2019-08-12 11:12 | REP ---
MRI lumbar spine: 08/13/2019. Indication: Low back pain. Comparison: None. Technique: Multiplanar short and long TR sequences of the lumbar spine were obtained without IV Gadolinium. Findings: There is a grade 1/grade 2 anterolisthesis of L5 on S1 secondary to bilateral pars defects. Minimal retrolisthesis of L2 and L3 is present. Disc space narrowing and desiccation are present throughout most pronounced at L2/L3 and L5/S1. Multilevel degenerative endplate signal changes are present most pronounced at L2/L3. There are small chronic Schmorl's node within the inferior L2 vertebral body. The visualized cord is unremarkable. No significant paraspinal soft tissue abnormalities are detected. L1/L2: Diffuse disc bulge and facet arthropathy are present without significant spinal canal or neural foraminal narrowing. L2/L3: Diffuse disc and spur complex is present with mild left neural foraminal narrowing. The spinal canal and right neural foramen are patent. Degenerative sequelae of the facets are present including moderately prominent fluid on the left. L3/L4: Mild diffuse disc bulge and mild bilateral facet arthropathy are present without significant spinal canal or neural foraminal narrowing. L4/L5: Diffuse disc and spur complex is present with bilateral facet arthropathy. There is no significant narrowing of the spinal canal. Mild bilateral neural foraminal narrowing is present. L5/S1: Diffuse disc uncovering/bulge and associated osteophytic spurring particularly on the left are present without significant spinal canal narrowing. Moderate to severe bilateral neural foraminal narrowing is present with the disc and spur complexes contacting the exiting L5 nerve roots bilaterally. Impression: Multilevel degenerative sequelae of the lumbar spine as described without significant spinal canal narrowing. The greatest neural foraminal narrowing is bilaterally at L5/S1. Grade 1/grade 2 anterolisthesis of L5 on S1 secondary to pars defects. Minimal retrolisthesis of L2 on L3. Electronically Signed by Wilfrido Ferguson DO 08/12/2019 11:05 A
== END ==
LOC: M RAD 09:40
PROVIDERS: ATTEND Anesthesiology
DX: M54.5 Low back pain (principal)

== ENCOUNTER → 2019-08-19 | Outpatient (CLI) | payer OTHER ==
--- NOTE | 2019-08-23 01:37 | ECWPNPC ---
PATIENT NAME: ACOSTA FARRELL : 1955 GENDER: MALE VISIT DATE: 08/19/2019 DISCHARGE DATE: 08/19/19 1030 VISIT LOCKED DATE TIME: PHYSICIAN: STEPHEN SCHULTZ RESOURCE: STEPHEN SCHULTZ REASON FOR APPOINTMENT 1. W/C POST PROC/MEDS HISTORY OF PRESENT ILLNESS HISTORY OF PRESENT ILLNESS: PAIN THE PATIENT DESCRIBES THE PAIN... THE PATIENT DESCRIBES THE PAIN... 63 YEAR OLD MALE PATIENT WITH A HISTORY OF CHRONIC LOW BACK AND LEG PAIN. THE PATIENT DESCRIBES THE PAIN ACHING, SORE, AND TENDER, AND CONTINUOUS WITH A PAIN SCORE OF 1/10 DEPENDING ON PHYSICAL ACTIVITY. 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 THE PATIENT STATES HIS PAIN BEGINS IN HIS LOW BACK AND RADIATES DOWN HIS LEGS, BUT HIS RIGHT LEG IS AFFECTED MORE. THE PATIENT SAYS HIS PAIN IS AFFECTING HIS ABILITY TO PERFORM HIS DAILY ACTIVITIES, SUCH CLEANING HIS HOUSE, GROCERY SHOPPING, STANDING AND WALKING FOR MORE THAN 5 MINUTES BEFORE NEEDING TO SIT DOWN. THE PATIENT STATES HE IS CURRENTLY USING TIZANIDINE AND BACLOFEN FOR SPASMS AND HYDROCODONE-ACETAMINOPHEN 10-325 MG WHEN HIS PAIN IS SEVERE. THE PATIENT RECEIVED A LUMBAR EPIDURAL ON 07/28/19 THAT PROVIDED RELIEF, WITH INCREASED FUNCTIONALITY AND MOBILITY WELL. FALL RISK SCREENING: SCREENING :NO FALLS REPORTED IN THE LAST YEAR CURRENT MEDICATIONS TAKING HYDROCODONE-ACETAMINOPHEN 10-325 MG TABLET 2 TABLET NEEDED ORALLY EVERY 6 HOURS FOR PAIN (CHRONIC PAIN CODE D) MDD 4 TAKING NARCAN 4 MG/0.1ML LIQUID DIRECTED NASALLY TAKING NALOXONE HCL 0.4 MG/ML SOLUTION CARTRIDGE DIRECTED INJECTION (WORKERS COMP) NEEDED FOR RESPIRATORY DEPRESION TAKING TIZANIDINE HCL 4 MG TABLET 1.5 TABLET ORALLY FOR SPSTICITY BID (WORKERS COMP) MDD3 TAKING BACLOFEN 10 MG TABLET 2 TABS ORALLY (WORKERS COMP) BEFORE BEDTIME NEEDED FOR SPASMS TAKING GABAPENTIN 300 MG CAPSULE 1 CAPSULE ORALLY 1 IN AM, 2 AT HS TAKING VITAMIN D3 MAXIMUM STRENGTH 5000 UNIT CAPSULE 4 CAPSULES ORALLY 55035 UNIT CAPSULES ONCE WEEKLY TAKING ASPIRIN ADULT LOW STRENGTH 81 MG TABLET DELAYED RELEASE 1 TABLET ORALLY ONCE A DAY TAKING FINASTERIDE 5 MG TABLET 1 TABLET ORALLY ONCE A DAY TAKING FOLIC ACID 5 MG CAPSULE 1 CAPSULE ORALLY ONCE A DAY TAKING VENTOLIN HFA AEROSOL SOLUTION 2 PUFFS NEEDED INHALATION EVERY 4 HRS NEEDED TAKING FUROSEMIDE 20 MG TABLET 1 TABLET ORALLY ONCE A DAY TAKING AMLODIPINE BESYLATE 5 MG TABLET 1 TABLET ORALLY ONCE A DAY TAKING SIMVASTATIN 40 40MG TABLET ORAL DAILY TAKING LOSARTAN POTASSIUM 50 MG TABLET 1 TABLET ORALLY ONCE A DAY TAKING LEVOTHYROXINE SODIUM 150 MCG TABLET 162.5 TOTAL MCG ORALLY ONCE A DAY TAKING LEVOTHYROXINE SODIUM 25 MCG TABLET 1/2 TABLET ON AN EMPTY STOMACH IN THE MORNING ORALLY ONCE A DAY NOT-TAKING KEPPRA 500 MG TABLET 1 TABLET ORALLY TWICE A DAY NOT-TAKING HYDRALAZINE HCL 25 MG TABLET 1 TABLET ORALLY BID NOT-TAKING TRAMADOL HCL ER 300 MG TABLET EXTENDED RELEASE 24 HOUR 1 TABLET ORALLY FOR PAIN (WORKERS COMP) ONCE A DAY (CODE D FOR CHRONIC PAIN) NOT-TAKING TRAMADOL HCL 50 MG TABLET 1 TABLET NEEDED ORALLY FOR PAIN EVERY 6 HRS MDD 4, NOTES: PLEASE CALL DR ROMERO BEFORE USING THIS MEDICATION DISCONTINUED HYDROCODONE-ACETAMINOPHEN 10-325 MG TABLET 1 TABLET NEEDED ORALLY FOR PAIN (CODE D FOR CHRONIC PAIN) EVERY 6 HRS MDD4 ( WORKERS COMP) MEDICATION LIST REVIEWED AND RECONCILED WITH THE PATIENT PAST MEDICAL HISTORY HYPERTENSION HYPOTHYROIDISM HX BACK PAIN HYPERLIPIDEMIA DM ( DIET CONTROLLED) ASTHMA (EXERCISE INDUSED) RENAL FAILURE ( CURRENTLY SEEING DR. ROME) ALLERGIES BACTRIM: SHAKES/TREMORS - ALLERGY ALL NSAIDS: RENAL FAILURE - CONTRAINDICATION SURGICAL HISTORY TONSILLECTOMY 1957 PIN INSERTED LEFT FEMUR 1973 PIN REMOVED LEFT FEMUR 1973 RIGHT CARPAL TUNNEL REPAIR VASECTOMY 1978 FAMILY HISTORY FATHER: 72 YRS, DIAGNOSED WITH UNSPECIFIED HEART DISEASE MOTHER: 73 YRS, OTHER MALIGNANT NEOPLASM OF UNSPECIFIED SITE SIBLINGS: ALIVE 1 BROTHER(S) , 1 SISTER(S) - HEALTHY. 1 SON(S) , 1 DAUGHTER(S) - HEALTHY. SOCIAL HISTORY GENERAL: TOBACCO USE ARE YOU A:CURRENT SMOKER CESSATION ENCOURAGED. ARE YOU INTERESTED IN QUITTING?READY TO QUIT COUNSELED THE PATIENT ON TOBACCO USE, CESSATION [id number]/25/2019 PATIENT COUNSELED ON THE DANGERS OF TOBACCO USE AND URGED TO QUIT:07/28/2019 SMOKING CESSATION INFORMATION GIVEN01/31/2019 OTHERS AT HOME: OTHER NON-RELATIVE. DIET: NO ADDED SALT. LANGUAGE LANGUAGES SPOKEN:GERMAN EXERCISE: WALKS. 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 BILATERAL VISION IMPAIRED?YES COGNITIVELY IMPAIRED?NO :CORRECTIVE LENSES READINESS TO LEARN?YES PAIN CLINIC PFS, CLERGY, PUBLIC HEALTH REFERRALS PFS REFERRAL NEEDED?NO CLERGY REFERRAL NEEDED?NO PUBLIC HEALTH REFERRAL NEEDED?NO WAS THE PROVIDER NOTIFIED OF ANY PERTINENT INFO?YES HAS THE PATIENT BEEN EDUCATED REGARDING HIS/HER PLAN OF CARE?YES HAS THE PATIENT BEEN EDUCATED REGARDING PAIN, THE RISK FOR PAIN, THE IMPORTANCE OF EFFECTIVE PAIN MANAGEMENT, AND THE PAIN ASSESSMENT PROCESS?YES LATEX QUESTIONNAIRE LATEX ALLERGY : HAVE YOU EVER DEVELOPED ANY TYPE OF REACTION AFTER HANDLING LATEX PRODUCTS SUCH RUBBER GLOVES, CONDOMS, DIAPHRAGMS, BALLOONS, SOCKS, OR UNDERWEAR?NO LATEX ALLERGY : HAVE YOU EVER DEVELOPED ANY TYPE OF REACTION DURING OR AFTER DENTAL APPOINTMENT, VAGINAL/RECTAL EXAMINATION, SURGICAL PROCEDURE, OR ANY OTHER EXPOSURE?NO DATE ASKED : 07/28/2019 LATEX RISK : HAVE YOU EVER HAD ANY DIFFICULTY BREATHING OR HIVES AFTER EATING OR HANDLING ANY FRUITS, OR VEGETABLES; SUCH KIWI, BANANAS, STONE FRUITS, OR CHESTNUTSNO LATEX RISK : DO YOU HAVE A PREVIOUS PERSONAL HISTORY OF MORE THAN NINE SURGERIES, SPINA BIFIDA, OR REPEATED CATHERIZATIONS? NO LATEX RISK : ARE YOU FREQUENTLY EXPOSED TO LATEX PRODUCTS IN YOUR OCCUPATION?NO ADVANCE DIRECTIVE ADVANCE DIRECTIVE DISCUSSED WITH PATIENT:YES HCP MARLIN FARRELL [phone] JUDAISM [id number] NONE MARITAL STATUS: .. ALCOHOL SCREENING DID YOU HAVE A DRINK CONTAINING ALCOHOL IN THE PAST YEAR?YES HOW MANY DRINKS DID YOU HAVE ON A TYPICAL DAY WHEN YOU WERE DRINKING IN THE PAST YEAR?1 OR 2 (0 POINTS) HOW OFTEN DID YOU HAVE A DRINK CONTAINING ALCOHOL IN THE PAST YEAR?MONTHLY OR LESS (1 POINT) POINTS1 INTERPRETATIONNEGATIVE OCCUPATION: RETIRED. HOSPITALIZATION/MAJOR DIAGNOSTIC PROCEDURE TIA 1996 [place] 2000 REVIEW OF SYSTEMS REVIEWED BY: PROVIDER: NI SALAS-Danilo . CONSTITUTIONAL: ANY CHANGE IN YOUR MEDICAL CONDITION? NO . CHILLS NO . FEVER NO . INFECTION: DO YOU HAVE NEW INFECTIONS? YES, RIGHT OTITIS MEDIA ON ABX . DO YOU HAVE HISTORY OF MRSA? NO . MUSCULOSKELETAL: ANY NEW PATTERNS OF PAIN OR NUMBNESS? NO . GASTROENTEROLOGY: ANY NEW CHANGE IN BOWEL CONTROL? NO . GENITOURINARY: ANY NEW CHANGE IN BLADDER CONTROL? NO . IS THERE A CHANCE YOU COULD BE ? NO . HEMATOLOGY/LYMPH: DO YOU TAKE ANY BLOOD THINNERS? (FOR EXAMPLE- COUMADIN, PLAVIX, AGGRENOX, PLATEL, PRADAXA, OR XARELTO) NO . WHEN WAS YOUR LAST DOSE? DATE: TIME: . NEUROLOGY: HAVE YOU FALLEN IN THE PAST 12 MONTHS? NO . ANY NEW EXTREMITY NUMBNESS OR WEAKNESS? NO . CARDIOLOGY: DO YOU HAVE A PACEMAKER OR DEFIBRILLATOR? NO . RESPIRATORY: HAVE YOU BEEN SICK IN THE PAST WEEK? YES, OTITIS MEDIA . FEVER NO . FLU LIKE SYMPTOMS? NO . COUGH NO . INTEGUMENTARY: DO YOU HAVE ANY RASHES OR OPEN SORES? NO . ALLERGIC/IMMUNO: ARE YOU ALLERGIC TO IV DYE? NO . ANY NEW ALLERGIES? NO . PSYCHIATRIC: DO YOU HAVE THOUGHTS OF HURTING YOURSELF OR SOMEONE ELSE? NO . ARE YOU ABUSED, NEGLECTED, OR IN AN UNSAFE ENVIRONMENT? NO . ENDOCRINOLOGY: ARE YOU DIABETIC? YES . OTHER: DO YOU NEED ANY PRESCRIPTIONS? NO . IF YES, PLEASE LIST: ____ . ANY NEW PROBLEMS WITH YOUR MEDICATIONS? NO . WHEN DID YOU LAST EAT? ____ . WHEN DID YOU LAST DRINK? ____ . WHAT DID YOU LAST DRINK? ____ . NAME OF PERSON DRIVING YOU HOME? ____ . DO YOU HAVE ANY OTHER QUESTIONS OR CONCERNS NO . VITAL SIGNS WT 246.4 LBS, HT 71 IN, BMI 34.36 INDEX, BP 145/103 MM HG, HR 62 /MIN, RR 16 /MIN, TEMP 97.0 F, OXYGEN SAT % 98, REVIEWED BY: EM. EXAMINATION GENERAL EXAMINATION: GENERALNO ACUTE DISTRESS, WELL NOURISHED AND HYDRATED. PSYCHAPPROPRIATE MOOD AND AFFECT . LUNGS:CLEAR TO AUSCULTATION BILATERALLY, NO WHEEZES, RHONCHI, RALES. HEART:NO MURMURS, REGULAR RATE AND RHYTHM. ASSESSMENTS INTERVERTEBRAL DISC DISORDERS WITH RADICULOPATHY, LUMBAR REGION - M51.16 (PRIMARY) TREATMENT INTERVERTEBRAL DISC DISORDERS WITH RADICULOPATHY, LUMBAR REGION CLINICAL NOTES: 63-YEAR-OLD MALE IN FOR POST LESI FOLLOW-UP. GIVEN PRESENTING SYMPTOMS AND RESULTS OF PHYSICAL EXAMINATION RECOMMENDED FOLLOW-UP IN 2 MONTHS. PATIENT HAS EXPRESSED UNDERSTANDING OF AND WAS IN AGREEMENT WITH TREATMENT PLAN. GIVEN TIME TO ASK QUESTIONS AND EXPRESS CONCERNS., ISTOP REGISTRY REVIEWED AND DEMONSTRATES COMPLLIANCE. (REF # [id number] ) BRINGS IN MEDICATIONS WHICH IS APPROPRIATE FOR WHAT WAS DISPENSED. RECENT URINE TOXICOLOGY REVIEWED. NO UNAUTHORIZED MEDICATIONS. NO ILLICIT SUBSTANCES AND PRESCRIBED MEDICATIONS WERE PRESENT. PROCEDURES PN WORKMANS' COMP OPINION IN YOUR OPINION, WAS THE INCIDENT THAT THE PATIENT DESCRIBED THE COMPETENT MEDICAL CAUSE OF THIS INJURY/ILLNESS? YES ARE THE PATIENT'S COMPLAINTS CONSISTENT WITH HIS/HER HISTORY OF THE INJURY/ILLNESS? YES IS THE PATIENT'S HISTORY OF THE INJURY/ILLNESS CONSISTENT WITH YOUR OBJECTIVE FINDING? YES WHAT IS THE PERCENTAGE OF TEMPORARY IMPAIRMENT? MODERATE TO MARKED = 66.7% IS THE PATIENT WORKING? NO DOCTOR ON SITE: NORMA TURNER MD PROCEDURE CODES FA211 ESTABILISHED PATIENT [facility] CHARGE DISPOSITION & COMMUNICATION FOLLOW UP 2 MONTHS (REASON: CHRONIC PAIN WORKMEN'S COMP.) ELECTRONICALLY SIGNED BY MARITZA CHOW ON 08/22/2019 AT 08:38 AM EDT DISCLAIMER : THIS IS A VISIT SUMMARY EXTRACTED FROM THE [employer] CHART. IT IS NOT A COPY OF THE [employer] PROGRESS NOTE. VIKY
== END ==
LOC: M PAIN 10:30
PROVIDERS: ATTEND Family Medicine
DX: M51.16 Intervertebral disc disorders with radiculopathy, lumbar region (principal); G89.29 Other chronic pain; I10 Essential (primary) hypertension; E03.9 Hypothyroidism, unspecified; E78.5 Hyperlipidemia, unspecified; E11.9 Type 2 diabetes mellitus without complications; F17.210 Nicotine dependence, cigarettes, uncomplicated; Z88.1 Allergy status to other antibiotic agents; Z88.6 Allergy status to analgesic agent; Z86.73 Personal history of transient ischemic attack (TIA), and cerebral infarction without residual deficits; I25.2 Old myocardial infarction; Z79.82 Long term (current) use of aspirin; Z79.899 Other long term (current) drug therapy

== ENCOUNTER → 2019-10-14 | Outpatient (CLI) | payer OTHER ==
--- NOTE | 2019-10-18 04:11 | ECWPNPC ---
PATIENT NAME: ACOSTA FARRELL : 1955 GENDER: MALE VISIT DATE: 10/14/2019 DISCHARGE DATE: 10/14/19922 VISIT LOCKED DATE TIME: PHYSICIAN: STEPHEN SCHULTZ RESOURCE: STEPHEN SCHULTZ REASON FOR APPOINTMENT 1. W/C MEDS HISTORY OF PRESENT ILLNESS GENERAL: 64-YEAR-OLD MALE IN FOR WORKER'S COMP. CHRONIC PAIN FOLLOW-UP. HE HAS A HISTORY OF LOW BACK PAIN. HE RATES HIS PAIN CURRENTLY AT A 4 OUT OF 10 AND DESCRIBES IT ACHING, SHARP, BURNING, STABBING, SORE, SHOOTING, AND TENDER. HE FEELS MEDICATIONS ARE WORKING WELL AND DENIES MED SIDE EFFECTS AT THIS TIME. 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 THE PATIENT STATES HIS PAIN BEGINS IN HIS LOW BACK AND RADIATES DOWN HIS LEGS, BUT HIS RIGHT LEG IS AFFECTED MORE. THE PATIENT SAYS HIS PAIN IS AFFECTING HIS ABILITY TO PERFORM HIS DAILY ACTIVITIES, SUCH CLEANING HIS HOUSE, GROCERY SHOPPING, STANDING AND WALKING FOR MORE THAN 5 MINUTES BEFORE NEEDING TO SIT DOWN. THE PATIENT STATES HE IS CURRENTLY USING TIZANIDINE AND BACLOFEN FOR SPASMS AND HYDROCODONE-ACETAMINOPHEN 10-325 MG WHEN HIS PAIN IS SEVERE. THE PATIENT RECEIVED A LUMBAR EPIDURAL ON 07/28/19 THAT PROVIDED RELIEF, WITH INCREASED FUNCTIONALITY AND MOBILITY WELL. HISTORY OF PRESENT ILLNESS: PAIN THE PATIENT DESCRIBES THE PAIN... FALL RISK SCREENING: SCREENING :NO FALLS REPORTED IN THE LAST YEAR CURRENT MEDICATIONS TAKING HYDROCODONE-ACETAMINOPHEN 10-325 MG TABLET 2 TABLET NEEDED ORALLY EVERY 6 HOURS FOR PAIN (CHRONIC PAIN CODE D) MDD 4 TAKING NARCAN 4 MG/0.1ML LIQUID DIRECTED NASALLY TAKING NALOXONE HCL 0.4 MG/ML SOLUTION CARTRIDGE DIRECTED INJECTION (WORKERS COMP) NEEDED FOR RESPIRATORY DEPRESION TAKING TIZANIDINE HCL 4 MG TABLET 1.5 TABLET ORALLY FOR SPSTICITY BID (WORKERS COMP) MDD3 TAKING BACLOFEN 10 MG TABLET 2 TABS ORALLY (WORKERS COMP) BEFORE BEDTIME NEEDED FOR SPASMS TAKING GABAPENTIN 300 MG CAPSULE 1 CAPSULE ORALLY 1 IN AM, 2 AT HS TAKING VITAMIN D3 MAXIMUM STRENGTH 5000 UNIT CAPSULE 4 CAPSULES ORALLY 89755 UNIT CAPSULES ONCE WEEKLY TAKING ASPIRIN ADULT LOW STRENGTH 81 MG TABLET DELAYED RELEASE 1 TABLET ORALLY ONCE A DAY TAKING FINASTERIDE 5 MG TABLET 1 TABLET ORALLY ONCE A DAY TAKING FOLIC ACID 5 MG CAPSULE 1 CAPSULE ORALLY ONCE A DAY TAKING VENTOLIN HFA AEROSOL SOLUTION 2 PUFFS NEEDED INHALATION EVERY 4 HRS NEEDED TAKING FUROSEMIDE 20 MG TABLET 1 TABLET ORALLY ONCE A DAY TAKING AMLODIPINE BESYLATE 5 MG TABLET 1 TABLET ORALLY ONCE A DAY TAKING SIMVASTATIN 40 40MG TABLET ORAL DAILY TAKING LOSARTAN POTASSIUM 50 MG TABLET 1 TABLET ORALLY ONCE A DAY TAKING LEVOTHYROXINE SODIUM 150 MCG TABLET 162.5 TOTAL MCG ORALLY ONCE A DAY TAKING LEVOTHYROXINE SODIUM 25 MCG TABLET 1/2 TABLET ON AN EMPTY STOMACH IN THE MORNING ORALLY ONCE A DAY NOT-TAKING KEPPRA 500 MG TABLET 1 TABLET ORALLY TWICE A DAY NOT-TAKING HYDRALAZINE HCL 25 MG TABLET 1 TABLET ORALLY BID NOT-TAKING TRAMADOL HCL ER 300 MG TABLET EXTENDED RELEASE 24 HOUR 1 TABLET ORALLY FOR PAIN (WORKERS COMP) ONCE A DAY (CODE D FOR CHRONIC PAIN) NOT-TAKING TRAMADOL HCL 50 MG TABLET 1 TABLET NEEDED ORALLY FOR PAIN EVERY 6 HRS MDD 4, NOTES: PLEASE CALL DR ROMERO BEFORE USING THIS MEDICATION MEDICATION LIST REVIEWED AND RECONCILED WITH THE PATIENT PAST MEDICAL HISTORY HYPERTENSION HYPOTHYROIDISM HX BACK PAIN HYPERLIPIDEMIA DM ( DIET CONTROLLED) ASTHMA (EXERCISE INDUSED) RENAL FAILURE ( CURRENTLY SEEING DR. ROME) ALLERGIES BACTRIM: SHAKES/TREMORS - ALLERGY ALL NSAIDS: RENAL FAILURE - CONTRAINDICATION SURGICAL HISTORY TONSILLECTOMY 1957 PIN INSERTED LEFT FEMUR 1973 PIN REMOVED LEFT FEMUR 1973 RIGHT CARPAL TUNNEL REPAIR VASECTOMY 1978 FAMILY HISTORY FATHER: 72 YRS, DIAGNOSED WITH UNSPECIFIED HEART DISEASE MOTHER: 73 YRS, OTHER MALIGNANT NEOPLASM OF UNSPECIFIED SITE SIBLINGS: ALIVE 1 BROTHER(S) , 1 SISTER(S) - HEALTHY. 1 SON(S) , 1 DAUGHTER(S) - HEALTHY. SOCIAL HISTORY GENERAL: TOBACCO USE ARE YOU A:CURRENT SMOKER CESSATION ENCOURAGED. ARE YOU INTERESTED IN QUITTING?READY TO QUIT COUNSELED THE PATIENT ON TOBACCO USE, CESSATION [id number]/25/2019 HOW MANY CIGARETTES A DAY DO YOU SMOKE?6-10 PATIENT COUNSELED ON THE DANGERS OF TOBACCO USE AND URGED TO QUIT:10/14/2019 SMOKING CESSATION INFORMATION GIVEN01/31/2019 OTHERS AT HOME: OTHER NON-RELATIVE. DIET: NO ADDED SALT. LANGUAGE LANGUAGES SPOKEN:DANISH EXERCISE: WALKS. 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 BILATERAL VISION IMPAIRED?YES COGNITIVELY IMPAIRED?NO :CORRECTIVE LENSES READINESS TO LEARN?YES PAIN CLINIC PFS, CLERGY, PUBLIC HEALTH REFERRALS PFS REFERRAL NEEDED?NO CLERGY REFERRAL NEEDED?NO PUBLIC HEALTH REFERRAL NEEDED?NO WAS THE PROVIDER NOTIFIED OF ANY PERTINENT INFO?YES HAS THE PATIENT BEEN EDUCATED REGARDING HIS/HER PLAN OF CARE?YES HAS THE PATIENT BEEN EDUCATED REGARDING PAIN, THE RISK FOR PAIN, THE IMPORTANCE OF EFFECTIVE PAIN MANAGEMENT, AND THE PAIN ASSESSMENT PROCESS?YES LATEX QUESTIONNAIRE LATEX ALLERGY : HAVE YOU EVER DEVELOPED ANY TYPE OF REACTION AFTER HANDLING LATEX PRODUCTS SUCH RUBBER GLOVES, CONDOMS, DIAPHRAGMS, BALLOONS, SOCKS, OR UNDERWEAR?NO LATEX ALLERGY : HAVE YOU EVER DEVELOPED ANY TYPE OF REACTION DURING OR AFTER DENTAL APPOINTMENT, VAGINAL/RECTAL EXAMINATION, SURGICAL PROCEDURE, OR ANY OTHER EXPOSURE?NO DATE ASKED : 07/28/2019 LATEX RISK : HAVE YOU EVER HAD ANY DIFFICULTY BREATHING OR HIVES AFTER EATING OR HANDLING ANY FRUITS, OR VEGETABLES; SUCH KIWI, BANANAS, STONE FRUITS, OR CHESTNUTSNO LATEX RISK : DO YOU HAVE A PREVIOUS PERSONAL HISTORY OF MORE THAN NINE SURGERIES, SPINA BIFIDA, OR REPEATED CATHERIZATIONS? NO LATEX RISK : ARE YOU FREQUENTLY EXPOSED TO LATEX PRODUCTS IN YOUR OCCUPATION?NO CAFFEINE CAFFEINE USE?YES HOW OFTEN AND HOW MUCH? 1 COFFEE A DAY ADVANCE DIRECTIVE ADVANCE DIRECTIVE DISCUSSED WITH PATIENT:YES HCP MARLIN BUD [phone] LATTER DAY [id number] NONE MARITAL STATUS: .. ALCOHOL SCREENING DID YOU HAVE A DRINK CONTAINING ALCOHOL IN THE PAST YEAR?YES HOW MANY DRINKS DID YOU HAVE ON A TYPICAL DAY WHEN YOU WERE DRINKING IN THE PAST YEAR?1 OR 2 (0 POINTS) HOW OFTEN DID YOU HAVE A DRINK CONTAINING ALCOHOL IN THE PAST YEAR?MONTHLY OR LESS (1 POINT) POINTS1 INTERPRETATIONNEGATIVE OCCUPATION: RETIRED. HOSPITALIZATION/MAJOR DIAGNOSTIC PROCEDURE TIA 1996 [place] 2000 REVIEW OF SYSTEMS REVIEWED BY: PROVIDER: NI ZUNIGA . CONSTITUTIONAL: ANY CHANGE IN YOUR MEDICAL CONDITION? NO . CHILLS NO . FEVER NO . INFECTION: DO YOU HAVE NEW INFECTIONS? NO . DO YOU HAVE HISTORY OF MRSA? NO . MUSCULOSKELETAL: ANY NEW PATTERNS OF PAIN OR NUMBNESS? NO . GASTROENTEROLOGY: ANY NEW CHANGE IN BOWEL CONTROL? NO . GENITOURINARY: ANY NEW CHANGE IN BLADDER CONTROL? NO . IS THERE A CHANCE YOU COULD BE ? NO . HEMATOLOGY/LYMPH: DO YOU TAKE ANY BLOOD THINNERS? (FOR EXAMPLE- COUMADIN, PLAVIX, AGGRENOX, PLATEL, PRADAXA, OR XARELTO) NO . WHEN WAS YOUR LAST DOSE? DATE: TIME: . NEUROLOGY: HAVE YOU FALLEN IN THE PAST 12 MONTHS? NO . ANY NEW EXTREMITY NUMBNESS OR WEAKNESS? NO . CARDIOLOGY: DO YOU HAVE A PACEMAKER OR DEFIBRILLATOR? NO . RESPIRATORY: HAVE YOU BEEN SICK IN THE PAST WEEK? NO . FEVER NO . FLU LIKE SYMPTOMS? NO . COUGH NO . INTEGUMENTARY: DO YOU HAVE ANY RASHES OR OPEN SORES? NO . ALLERGIC/IMMUNO: ARE YOU ALLERGIC TO IV DYE? NO . ANY NEW ALLERGIES? NO . PSYCHIATRIC: DO YOU HAVE THOUGHTS OF HURTING YOURSELF OR SOMEONE ELSE? NO . ARE YOU ABUSED, NEGLECTED, OR IN AN UNSAFE ENVIRONMENT? NO . ENDOCRINOLOGY: ARE YOU DIABETIC? NO . OTHER: DO YOU NEED ANY PRESCRIPTIONS? NO . IF YES, PLEASE LIST: ____ . ANY NEW PROBLEMS WITH YOUR MEDICATIONS? NO . WHEN DID YOU LAST EAT? ____ . WHEN DID YOU LAST DRINK? ____ . WHAT DID YOU LAST DRINK? ____ . NAME OF PERSON DRIVING YOU HOME? ____ . DO YOU HAVE ANY OTHER QUESTIONS OR CONCERNS NO . VITAL SIGNS WT 253.6 LBS, HT 71 IN, BMI 35.37 INDEX, BP 137/93 MM HG, HR 64 /MIN, RR 16 /MIN, TEMP 96.5 F, OXYGEN SAT % 100%, NA INITIALS AW 0852. EXAMINATION GENERAL EXAMINATION: GENERALNO ACUTE DISTRESS, WELL NOURISHED AND HYDRATED. PSYCHAPPROPRIATE MOOD AND AFFECT . LUNGS:CLEAR TO AUSCULTATION BILATERALLY, NO WHEEZES, RHONCHI, RALES. HEART:NO MURMURS, REGULAR RATE AND RHYTHM. ASSESSMENTS INTERVERTEBRAL DISC DISORDERS WITH RADICULOPATHY, LUMBOSACRAL REGION - M51.17 (PRIMARY) TREATMENT INTERVERTEBRAL DISC DISORDERS WITH RADICULOPATHY, LUMBOSACRAL REGION CLINICAL NOTES: 64-YEAR-OLD MALE IN FOR WORKER'S COMP. CHRONIC PAIN FOLLOW-UP. GIVEN PRESENTING SYMPTOMS AND RESULTS OF PHYSICAL EXAMINATION RECOMMENDED CONTINUATION OF CURRENT MEDICATION REGIMEN WITH FOLLOW-UP IN 3 MONTHS. PATIENT HAS EXPRESSED UNDERSTANDING OF AND WAS IN AGREEMENT WITH TREATMENT PLAN. GIVEN TIME TO ASK QUESTIONS AND EXPRESS CONCERNS., ISTOP REGISTRY REVIEWED AND DEMONSTRATES COMPLLIANCE. (REF #[id number] ) BRINGS IN MEDICATIONS WHICH IS APPROPRIATE FOR WHAT WAS DISPENSED. RECENT URINE TOXICOLOGY REVIEWED. NO UNAUTHORIZED MEDICATIONS. NO ILLICIT SUBSTANCES AND PRESCRIBED MEDICATIONS WERE PRESENT. PROCEDURES PN WORKMANS' COMP OPINION IN YOUR OPINION, WAS THE INCIDENT THAT THE PATIENT DESCRIBED THE COMPETENT MEDICAL CAUSE OF THIS INJURY/ILLNESS? YES ARE THE PATIENT'S COMPLAINTS CONSISTENT WITH HIS/HER HISTORY OF THE INJURY/ILLNESS? YES IS THE PATIENT'S HISTORY OF THE INJURY/ILLNESS CONSISTENT WITH YOUR OBJECTIVE FINDING? YES WHAT IS THE PERCENTAGE OF TEMPORARY IMPAIRMENT? MODERATE TO MARKED = 66.7% IS THE PATIENT WORKING? NO DOCTOR ON SITE: NORMA TURNER MD PROCEDURE CODES FA211 ESTABILISHED PATIENT [facility] CHARGE DISPOSITION & COMMUNICATION FOLLOW UP 3 MONTHS (REASON: WORKER'S COMP. LOW BACK PAIN) ELECTRONICALLY SIGNED BY MARITZA CHOW ON 10/17/2019 AT 01:59 PM EST DISCLAIMER : THIS IS A VISIT SUMMARY EXTRACTED FROM THE [employer] CHART. IT IS NOT A COPY OF THE [employer] PROGRESS NOTE. VIKY
== END ==
LOC: M PAIN 09:15
PROVIDERS: ATTEND Family Medicine
DX: M51.17 Intervertebral disc disorders with radiculopathy, lumbosacral region (principal)

== ENCOUNTER → 2020-01-17 | Outpatient (CLI) | payer OTHER ==
--- NOTE | 2020-01-19 02:33 | ECWPNPC ---
PATIENT NAME: ACOSTA FARRELL : 1955 GENDER: MALE VISIT DATE: 01/17/2020 DISCHARGE DATE: 01/17/20932 VISIT LOCKED DATE TIME: PHYSICIAN: STEPHEN SCHULTZ RESOURCE: STEPHEN SCHULTZ REASON FOR APPOINTMENT 1. W/C LOW BACK HISTORY OF PRESENT ILLNESS PAIN SCREENING: PATIENT HAS A COMPLAINT OF ACUTE OR CHRONIC PAIN :YES LOCATION OF PAIN:LOW BACK INTENSITY OF PAIN (SCALE OF 1 TO 10):7 WHAT DOES YOUR PAIN FEEL LIKE:ACHING, STABBING DURATION:INTERMITTENT 64-YEAR-OLD MALE IN FOR WORKER'S COMP. CHRONIC PAIN FOLLOW-UP. HE RATES HIS PAIN CURRENTLY AT A 7 OUT OF 10 AND DESCRIBES IT ACHING, AND STABBING. HE FEELS MEDICATIONS ARE WORKING WELL AND DENIES MED SIDE EFFECTS AT THIS TIME. HE DOES ADMIT TO RECENT EXACERBATIONS OF HIS PAIN BUT SAYS THAT THAT HAS SINCE ABATED. FALL RISK SCREENING: SCREENING :NO FALLS REPORTED IN THE LAST YEAR HISTORY OF PRESENT ILLNESS: PAIN THE PATIENT DESCRIBES THE PAIN... CURRENT MEDICATIONS TAKING NARCAN 4 MG/0.1ML LIQUID DIRECTED NASALLY TAKING NALOXONE HCL 0.4 MG/ML SOLUTION CARTRIDGE DIRECTED INJECTION (WORKERS COMP) NEEDED FOR RESPIRATORY DEPRESION TAKING VITAMIN D3 MAXIMUM STRENGTH 5000 UNIT CAPSULE 4 CAPSULES ORALLY 15828 UNIT CAPSULES ONCE WEEKLY TAKING ASPIRIN ADULT LOW STRENGTH 81 MG TABLET DELAYED RELEASE 1 TABLET ORALLY ONCE A DAY TAKING FINASTERIDE 5 MG TABLET 1 TABLET ORALLY ONCE A DAY TAKING FOLIC ACID 5 MG CAPSULE 1 CAPSULE ORALLY ONCE A DAY TAKING VENTOLIN HFA AEROSOL SOLUTION 2 PUFFS NEEDED INHALATION EVERY 4 HRS NEEDED TAKING FUROSEMIDE 20 MG TABLET 1 TABLET ORALLY ONCE A DAY TAKING AMLODIPINE BESYLATE 5 MG TABLET 1 TABLET ORALLY ONCE A DAY TAKING SIMVASTATIN 40 40MG TABLET ORAL DAILY TAKING LOSARTAN POTASSIUM 50 MG TABLET 1 TABLET ORALLY ONCE A DAY TAKING LEVOTHYROXINE SODIUM 150 MCG TABLET 162.5 TOTAL MCG ORALLY ONCE A DAY TAKING LEVOTHYROXINE SODIUM 25 MCG TABLET 1/2 TABLET ON AN EMPTY STOMACH IN THE MORNING ORALLY ONCE A DAY TAKING HYDROCODONE-ACETAMINOPHEN 10-325 MG TABLET 2 TABLET NEEDED ORALLY EVERY 6 HOURS FOR PAIN (CHRONIC PAIN CODE D) MDD 4 TAKING BACLOFEN 10 MG TABLET 2 TABS ORALLY (WORKERS COMP) BEFORE BEDTIME NEEDED FOR SPASMS TAKING GABAPENTIN 300 MG CAPSULE 1 CAPSULE ORALLY 1 IN AM, 2 AT HS TAKING TIZANIDINE HCL 4 MG TABLET 1.5 TABLET ORALLY FOR SPSTICITY BID (WORKERS COMP) MDD3 NOT-TAKING KEPPRA 500 MG TABLET 1 TABLET ORALLY TWICE A DAY NOT-TAKING HYDRALAZINE HCL 25 MG TABLET 1 TABLET ORALLY BID NOT-TAKING TRAMADOL HCL ER 300 MG TABLET EXTENDED RELEASE 24 HOUR 1 TABLET ORALLY FOR PAIN (WORKERS COMP) ONCE A DAY (CODE D FOR CHRONIC PAIN) NOT-TAKING TRAMADOL HCL 50 MG TABLET 1 TABLET NEEDED ORALLY FOR PAIN EVERY 6 HRS MDD 4, NOTES: PLEASE CALL DR ROMERO BEFORE USING THIS MEDICATION MEDICATION LIST REVIEWED AND RECONCILED WITH THE PATIENT PAST MEDICAL HISTORY HYPERTENSION HYPOTHYROIDISM HX BACK PAIN HYPERLIPIDEMIA DM ( DIET CONTROLLED) ASTHMA (EXERCISE INDUSED) RENAL FAILURE ( CURRENTLY SEEING DR. ROME) ALLERGIES BACTRIM: SHAKES/TREMORS - ALLERGY ALL NSAIDS: RENAL FAILURE - CONTRAINDICATION SURGICAL HISTORY TONSILLECTOMY 1957 PIN INSERTED LEFT FEMUR 1973 PIN REMOVED LEFT FEMUR 1973 RIGHT CARPAL TUNNEL REPAIR VASECTOMY 1978 FAMILY HISTORY FATHER: 72 YRS, DIAGNOSED WITH UNSPECIFIED HEART DISEASE MOTHER: 73 YRS, OTHER MALIGNANT NEOPLASM OF UNSPECIFIED SITE SIBLINGS: ALIVE 1 BROTHER(S) , 1 SISTER(S) - HEALTHY. 1 SON(S) , 1 DAUGHTER(S) - HEALTHY. SOCIAL HISTORY GENERAL: TOBACCO USE ARE YOU A:CURRENT SMOKER CESSATION ENCOURAGED. ARE YOU INTERESTED IN QUITTING?READY TO QUIT COUNSELED THE PATIENT ON TOBACCO USE, CESSATION NNEIDSYH23/24/2020 HOW MANY CIGARETTES A DAY DO YOU SMOKE?6-10 PATIENT COUNSELED ON THE DANGERS OF TOBACCO USE AND URGED TO QUIT:01/17/2020 SMOKING CESSATION INFORMATION GIVEN01/17/2020 OTHERS AT HOME: OTHER NON-RELATIVE. DIET: NO ADDED SALT. LANGUAGE LANGUAGES SPOKEN:BULGARIAN EXERCISE: WALKS. 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 BILATERAL VISION IMPAIRED?YES COGNITIVELY IMPAIRED?NO :CORRECTIVE LENSES READINESS TO LEARN?YES PAIN CLINIC PFS, CLERGY, PUBLIC HEALTH REFERRALS PFS REFERRAL NEEDED?NO CLERGY REFERRAL NEEDED?NO PUBLIC HEALTH REFERRAL NEEDED?NO WAS THE PROVIDER NOTIFIED OF ANY PERTINENT INFO?YES HAS THE PATIENT BEEN EDUCATED REGARDING HIS/HER PLAN OF CARE?YES HAS THE PATIENT BEEN EDUCATED REGARDING PAIN, THE RISK FOR PAIN, THE IMPORTANCE OF EFFECTIVE PAIN MANAGEMENT, AND THE PAIN ASSESSMENT PROCESS?YES LATEX QUESTIONNAIRE LATEX ALLERGY : HAVE YOU EVER DEVELOPED ANY TYPE OF REACTION AFTER HANDLING LATEX PRODUCTS SUCH RUBBER GLOVES, CONDOMS, DIAPHRAGMS, BALLOONS, SOCKS, OR UNDERWEAR?NO LATEX ALLERGY : HAVE YOU EVER DEVELOPED ANY TYPE OF REACTION DURING OR AFTER DENTAL APPOINTMENT, VAGINAL/RECTAL EXAMINATION, SURGICAL PROCEDURE, OR ANY OTHER EXPOSURE?NO DATE ASKED : 07/28/2019 LATEX RISK : HAVE YOU EVER HAD ANY DIFFICULTY BREATHING OR HIVES AFTER EATING OR HANDLING ANY FRUITS, OR VEGETABLES; SUCH KIWI, BANANAS, STONE FRUITS, OR CHESTNUTSNO LATEX RISK : DO YOU HAVE A PREVIOUS PERSONAL HISTORY OF MORE THAN NINE SURGERIES, SPINA BIFIDA, OR REPEATED CATHERIZATIONS? NO LATEX RISK : ARE YOU FREQUENTLY EXPOSED TO LATEX PRODUCTS IN YOUR OCCUPATION?NO CAFFEINE CAFFEINE USE?YES HOW OFTEN AND HOW MUCH? 1 COFFEE A DAY ADVANCE DIRECTIVE ADVANCE DIRECTIVE DISCUSSED WITH PATIENT:YES HCP MARLIN GONZALESRichard [phone] FAITH [id number] NONE MARITAL STATUS: .. ALCOHOL SCREENING DID YOU HAVE A DRINK CONTAINING ALCOHOL IN THE PAST YEAR?YES HOW MANY DRINKS DID YOU HAVE ON A TYPICAL DAY WHEN YOU WERE DRINKING IN THE PAST YEAR?1 OR 2 (0 POINTS) HOW OFTEN DID YOU HAVE A DRINK CONTAINING ALCOHOL IN THE PAST YEAR?MONTHLY OR LESS (1 POINT) POINTS1 INTERPRETATIONNEGATIVE OCCUPATION: RETIRED. HOSPITALIZATION/MAJOR DIAGNOSTIC PROCEDURE TIA 1996 [place] 2000 REVIEW OF SYSTEMS REVIEWED BY: PROVIDER: NI ZUNIGA . CONSTITUTIONAL: ANY CHANGE IN YOUR MEDICAL CONDITION? NO . CHILLS NO . FEVER NO . INFECTION: DO YOU HAVE NEW INFECTIONS? NO . DO YOU HAVE HISTORY OF MRSA? NO . MUSCULOSKELETAL: ANY NEW PATTERNS OF PAIN OR NUMBNESS? NO . GASTROENTEROLOGY: ANY NEW CHANGE IN BOWEL CONTROL? YES, SEVERE BACK PAIN THAT CAUSED DIARRHEA IN THE LAST MONTH . GENITOURINARY: ANY NEW CHANGE IN BLADDER CONTROL? NO . IS THERE A CHANCE YOU COULD BE ? NO . HEMATOLOGY/LYMPH: DO YOU TAKE ANY BLOOD THINNERS? (FOR EXAMPLE- COUMADIN, PLAVIX, AGGRENOX, PLATEL, PRADAXA, OR XARELTO) NO . WHEN WAS YOUR LAST DOSE? DATE: TIME: . NEUROLOGY: HAVE YOU FALLEN IN THE PAST 12 MONTHS? NO . ANY NEW EXTREMITY NUMBNESS OR WEAKNESS? NO . CARDIOLOGY: DO YOU HAVE A PACEMAKER OR DEFIBRILLATOR? NO . RESPIRATORY: HAVE YOU BEEN SICK IN THE PAST WEEK? NO . FEVER NO . FLU LIKE SYMPTOMS? NO . COUGH NO . INTEGUMENTARY: DO YOU HAVE ANY RASHES OR OPEN SORES? NO . ALLERGIC/IMMUNO: ARE YOU ALLERGIC TO IV DYE? NO . ANY NEW ALLERGIES? NO . PSYCHIATRIC: DO YOU HAVE THOUGHTS OF HURTING YOURSELF OR SOMEONE ELSE? NO . ARE YOU ABUSED, NEGLECTED, OR IN AN UNSAFE ENVIRONMENT? NO . ENDOCRINOLOGY: ARE YOU DIABETIC? NO . OTHER: DO YOU NEED ANY PRESCRIPTIONS? YES, REFILL FOR TIZANIDINE, BACLOFEN , HYDROCODONE, GABAPENTIN . IF YES, PLEASE LIST: ____ . ANY NEW PROBLEMS WITH YOUR MEDICATIONS? NO . WHEN DID YOU LAST EAT? ____ . WHEN DID YOU LAST DRINK? ____ . WHAT DID YOU LAST DRINK? ____ . NAME OF PERSON DRIVING YOU HOME? ____ . DO YOU HAVE ANY OTHER QUESTIONS OR CONCERNS NO . VITAL SIGNS WT 249.8 LBS, HT 71 IN, BMI 34.84 INDEX, BP 136/86 MM HG, HR 74 /MIN, RR 16 /MIN, TEMP 97.4 F, OXYGEN SAT % 97%, SAFE IN ENV? (Y/N) YES, NA INITIALS AW 0908, REVIEWED BY: ELOISA DAY LPN. EXAMINATION GENERAL EXAMINATION: GENERALNO ACUTE DISTRESS, WELL NOURISHED AND HYDRATED. PSYCHAPPROPRIATE MOOD AND AFFECT . LUNGS:CLEAR TO AUSCULTATION BILATERALLY, NO WHEEZES, RHONCHI, RALES. HEART:NO MURMURS, REGULAR RATE AND RHYTHM. ASSESSMENTS LUMBAR POST-LAMINECTOMY SYNDROME - M96.1 (PRIMARY) TREATMENT LUMBAR POST-LAMINECTOMY SYNDROME REFILL BACLOFEN TABLET, 10 MG, 2 TABS, ORALLY (WORKERS COMP), BEFORE BEDTIME NEEDED FOR SPASMS, 30 DAY(S), 60, REFILLS 2 REFILL GABAPENTIN CAPSULE, 300 MG, 1 CAPSULE, ORALLY, 1 IN AM, 2 AT HS, 30 DAY(S), 90, REFILLS 2 REFILL TIZANIDINE HCL TABLET, 4 MG, 1.5 TABLET, ORALLY FOR SPSTICITY, BID (WORKERS COMP) MDD3, 30 DAY(S), 90, REFILLS 2 REFILL HYDROCODONE-ACETAMINOPHEN TABLET, 10-325 MG, 2 TABLET NEEDED, ORALLY, EVERY 6 HOURS FOR PAIN (CHRONIC PAIN CODE D) MDD 4, 60 DAYS, 120, REFILLS 0 CLINICAL NOTES: 64-YEAR-OLD MALE 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 FOLLOW-UP. GIVEN PRESENTING SYMPTOMS AND RESULTS OF PHYSICAL EXAMINATION RECOMMENDED CONTINUATION OF CURRENT MEDICATION REGIMEN WITH FOLLOW-UP IN 3 MONTHS. PATIENT HAS EXPRESSED UNDERSTANDING OF AND WAS IN AGREEMENT WITH TREATMENT PLAN. GIVEN TIME TO ASK QUESTIONS AND EXPRESS CONCERNS., ISTOP REGISTRY REVIEWED AND DEMONSTRATES COMPLLIANCE. (REF # [id number] ) BRINGS IN MEDICATIONS WHICH IS APPROPRIATE FOR WHAT WAS DISPENSED. RECENT URINE TOXICOLOGY REVIEWED. NO UNAUTHORIZED MEDICATIONS. NO ILLICIT SUBSTANCES AND PRESCRIBED MEDICATIONS WERE PRESENT. PROCEDURES PN WORKMANS' COMP OPINION IN YOUR OPINION, WAS THE INCIDENT THAT THE PATIENT DESCRIBED THE COMPETENT MEDICAL CAUSE OF THIS INJURY/ILLNESS? YES ARE THE PATIENT'S COMPLAINTS CONSISTENT WITH HIS/HER HISTORY OF THE INJURY/ILLNESS? YES IS THE PATIENT'S HISTORY OF THE INJURY/ILLNESS CONSISTENT WITH YOUR OBJECTIVE FINDING? YES WHAT IS THE PERCENTAGE OF TEMPORARY IMPAIRMENT? MODERATE TO MARKED = 66.7% IS THE PATIENT WORKING? NO DOCTOR ON SITE: NORMA TURNER MD PROCEDURE CODES FA211 ESTABILISHED PATIENT [facility] CHARGE DISPOSITION & COMMUNICATION FOLLOW UP 3 MONTHS (REASON: BACK PAIN WORKER'S COMP.) ELECTRONICALLY SIGNED BY MARITZA CHOW ON 01/18/2020 AT 08:29 AM EDT DISCLAIMER : THIS IS A VISIT SUMMARY EXTRACTED FROM THE [employer] CHART. IT IS NOT A COPY OF THE [employer] PROGRESS NOTE. VIKY
== END ==
LOC: M PAIN 08:45
PROVIDERS: ATTEND Family Medicine
DX: M96.1 Postlaminectomy syndrome, not elsewhere classified (principal); F17.210 Nicotine dependence, cigarettes, uncomplicated; Z79.82 Long term (current) use of aspirin; Z79.891 Long term (current) use of opiate analgesic; Z79.899 Other long term (current) drug therapy; Z88.1 Allergy status to other antibiotic agents; Z88.8 Allergy status to other drugs, medicaments and biological substances

== ENCOUNTER → 2020-04-20 | Outpatient (CLI) | payer OTHER ==
--- NOTE | 2020-04-23 23:48 | ECWPNPC ---
PATIENT NAME: ACOSTA FARRELL : 1955 GENDER: MALE VISIT DATE: 04/20/2020 DISCHARGE DATE: 04/20/20918 VISIT LOCKED DATE TIME: PHYSICIAN: STEPHEN SCHULTZ RESOURCE: STEPHEN SCHULTZ REASON FOR APPOINTMENT 1. W/C LOW BACK HISTORY OF PRESENT ILLNESS GENERAL: -64-YEAR-OLD MALE IN FOR WORKER'S COMP. CHRONIC PAIN FOLLOW-UP. HE RATES HIS PAIN CURRENTLY AT AN 8 OUT OF 10 AND DESCRIBES IT SHARP, TENDER, THROBBING, AND SORE. HE ADMITS TO INCREASED PAIN RECENTLY. PATIENT HAD AN LESI PERFORMED ON 07/28/2019 WHICH HELPED HIM WITH HIS SYMPTOMS UP UNTIL RECENTLY. PATIENT WOULD LIKE A REPEAT LUMBAR EPIDURAL WITH GOALS OF INCREASED FUNCTIONALITY AND DECREASED PAIN. 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 THE PATIENT STATES HIS PAIN BEGINS IN HIS LOW BACK AND RADIATES DOWN HIS LEGS, BUT HIS RIGHT LEG IS AFFECTED MORE. FALL RISK SCREENING: SCREENING :NO FALLS REPORTED IN THE LAST YEAR PAIN SCREENING: PATIENT HAS A COMPLAINT OF ACUTE OR CHRONIC PAIN :YES LOCATION OF PAIN:LOW BACK DOWN TO RIGHT LEG INTENSITY OF PAIN (SCALE OF 1 TO 10):8 WHAT DOES YOUR PAIN FEEL LIKE:SHARP, TENDER, THROBBING, SORE DURATION:CONTINOUS, CONSTANT, ALL DAY, AWAKENS FROM SLEEP PAIN IS INCREASED BY:ACTIVITIES, PROLONGED STANDING PAIN IS DECREASED BY:USE OF PAIN MEDICATIONS RELAX PAIN HAS INTERFERED WITH THE FOLLOWING:HOUSEWORK, SLEEP, RELATIONSHIP WITH OTHERS, ENJOYMENT OF LIFE PLAN/GOALS/TREATMENT/INTERVENTION/FOLLOW UP:SEE PLAN NURSING NOTE: -. PAIN CENTER INTAKE QUESTIONS: DO YOU HAVE A HISTORY OF MRSA? :NO DO YOU TAKE A BLOOD THINNERS? :NO DO YOU HAVE ANY BLEEDING DISORDERS? :NO ANY NEW NUMBNESS OR WEAKNESS IN YOUR LEGS OR ARMS? :NO ANY PACEMAKER,DEFIBRILLATOR, OR DORSAL COLUMN STIMULATOR? :NO DO YOU HAVE ANY RASHES OR OPEN SORES? :NO ARE YOU ALLERGIC TO IV DYE? :NO ARE YOU DIABETIC? :NO ANY NEW PROBLEMS WITH YOUR MEDICATIONS? :NO HAVE YOU RECEIVED A VACCINE IN THE PAST 30 DAYS? :NO DO YOU PLAN TO RECEIVE A VACCINE IN THE NEXT 21 DAYS? :NO DO YOU NEED ANY PRESCRIPTION? :NO DO YOU TAKE ANY IMMUNOSUPPRESSIVE MEDICATIONS? :NO IS THERE A CHANCE YOU COULD BE ? :NO ARE YOU BREAST FEEDING? :NO CURRENT MEDICATIONS TAKING NARCAN 4 MG/0.1ML LIQUID DIRECTED NASALLY TAKING NALOXONE HCL 0.4 MG/ML SOLUTION CARTRIDGE DIRECTED INJECTION (WORKERS COMP) NEEDED FOR RESPIRATORY DEPRESION TAKING VITAMIN D3 MAXIMUM STRENGTH 5000 UNIT CAPSULE 4 CAPSULES ORALLY 14411 UNIT CAPSULES ONCE WEEKLY TAKING ASPIRIN ADULT LOW STRENGTH 81 MG TABLET DELAYED RELEASE 1 TABLET ORALLY ONCE A DAY TAKING FINASTERIDE 5 MG TABLET 1 TABLET ORALLY ONCE A DAY TAKING FOLIC ACID 5 MG CAPSULE 1 CAPSULE ORALLY ONCE A DAY TAKING VENTOLIN HFA AEROSOL SOLUTION 2 PUFFS NEEDED INHALATION EVERY 4 HRS NEEDED TAKING FUROSEMIDE 20 MG TABLET 1 TABLET ORALLY ONCE A DAY TAKING AMLODIPINE BESYLATE 5 MG TABLET 1 TABLET ORALLY ONCE A DAY TAKING SIMVASTATIN 40 40MG TABLET ORAL DAILY TAKING LOSARTAN POTASSIUM 50 MG TABLET 1 TABLET ORALLY ONCE A DAY TAKING LEVOTHYROXINE SODIUM 150 MCG TABLET 162.5 TOTAL MCG ORALLY ONCE A DAY TAKING LEVOTHYROXINE SODIUM 25 MCG TABLET 1/2 TABLET ON AN EMPTY STOMACH IN THE MORNING ORALLY ONCE A DAY TAKING BACLOFEN 10 MG TABLET 2 TABS ORALLY (WORKERS COMP) BEFORE BEDTIME NEEDED FOR SPASMS TAKING HYDROCODONE-ACETAMINOPHEN 10-325 MG TABLET 2 TABLET NEEDED ORALLY EVERY 6 HOURS FOR PAIN (CHRONIC PAIN CODE D) MDD 4 TAKING TIZANIDINE HCL 4 MG TABLET 1.5 TABLET ORALLY FOR SPSTICITY BID (WORKERS COMP) MDD3 TAKING GABAPENTIN 300 MG CAPSULE 1 CAPSULE ORALLY 1 IN AM, 2 AT HS NOT-TAKING KEPPRA 500 MG TABLET 1 TABLET ORALLY TWICE A DAY NOT-TAKING HYDRALAZINE HCL 25 MG TABLET 1 TABLET ORALLY BID NOT-TAKING TRAMADOL HCL ER 300 MG TABLET EXTENDED RELEASE 24 HOUR 1 TABLET ORALLY FOR PAIN (WORKERS COMP) ONCE A DAY (CODE D FOR CHRONIC PAIN) NOT-TAKING TRAMADOL HCL 50 MG TABLET 1 TABLET NEEDED ORALLY FOR PAIN EVERY 6 HRS MDD 4, NOTES: PLEASE CALL DR ROMERO BEFORE USING THIS MEDICATION MEDICATION LIST REVIEWED AND RECONCILED WITH THE PATIENT PAST MEDICAL HISTORY HYPERTENSION HYPOTHYROIDISM HX BACK PAIN HYPERLIPIDEMIA DM ( DIET CONTROLLED) ASTHMA (EXERCISE INDUSED) RENAL FAILURE ( CURRENTLY SEEING DR. ROME) ALLERGIES BACTRIM: SHAKES/TREMORS - ALLERGY ALL NSAIDS: RENAL FAILURE - CONTRAINDICATION SURGICAL HISTORY TONSILLECTOMY 1957 PIN INSERTED LEFT FEMUR 1973 PIN REMOVED LEFT FEMUR 1973 RIGHT CARPAL TUNNEL REPAIR VASECTOMY 1978 FAMILY HISTORY FATHER: 72 YRS, DIAGNOSED WITH UNSPECIFIED HEART DISEASE MOTHER: 73 YRS, OTHER MALIGNANT NEOPLASM OF UNSPECIFIED SITE SIBLINGS: ALIVE 1 BROTHER(S) , 1 SISTER(S) - HEALTHY. 1 SON(S) , 1 DAUGHTER(S) - HEALTHY. SOCIAL HISTORY GENERAL: TOBACCO USE ARE YOU A:CURRENT SMOKER CESSATION ENCOURAGED. ARE YOU INTERESTED IN QUITTING?READY TO QUIT COUNSELED THE PATIENT ON TOBACCO USE, CESSATION [id number]/26/2020 HOW MANY CIGARETTES A DAY DO YOU SMOKE?6-10 PATIENT COUNSELED ON THE DANGERS OF TOBACCO USE AND URGED TO QUIT:04/20/2020 SMOKING CESSATION INFORMATION GIVEN04/20/2020 LATEX QUESTIONNAIRE LATEX ALLERGY : HAVE YOU EVER DEVELOPED ANY TYPE OF REACTION AFTER HANDLING LATEX PRODUCTS SUCH RUBBER GLOVES, CONDOMS, DIAPHRAGMS, BALLOONS, SOCKS, OR UNDERWEAR?NO LATEX ALLERGY : HAVE YOU EVER DEVELOPED ANY TYPE OF REACTION DURING OR AFTER DENTAL APPOINTMENT, VAGINAL/RECTAL EXAMINATION, SURGICAL PROCEDURE, OR ANY OTHER EXPOSURE?NO LATEX RISK : HAVE YOU EVER HAD ANY DIFFICULTY BREATHING OR HIVES AFTER EATING OR HANDLING ANY FRUITS, OR VEGETABLES; SUCH KIWI, BANANAS, STONE FRUITS, OR CHESTNUTSNO LATEX RISK : DO YOU HAVE A PREVIOUS PERSONAL HISTORY OF MORE THAN NINE SURGERIES, SPINA BIFIDA, OR REPEATED CATHERIZATIONS? NO LATEX RISK : ARE YOU FREQUENTLY EXPOSED TO LATEX PRODUCTS IN YOUR OCCUPATION?NO DATE ASKED : 04/20/2020 ALCOHOL SCREENING DID YOU HAVE A DRINK CONTAINING ALCOHOL IN THE PAST YEAR?YES HOW MANY DRINKS DID YOU HAVE ON A TYPICAL DAY WHEN YOU WERE DRINKING IN THE PAST YEAR?1 OR 2 (0 POINTS) HOW OFTEN DID YOU HAVE A DRINK CONTAINING ALCOHOL IN THE PAST YEAR?MONTHLY OR LESS (1 POINT) POINTS1 INTERPRETATIONNEGATIVE CAFFEINE CAFFEINE USE?YES HOW OFTEN AND HOW MUCH? 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 DIET: NO ADDED SALT. EXERCISE: WALKS. MARITAL STATUS: .. OTHERS AT HOME: OTHER NON-RELATIVE. PAIN CLINIC PFS, CLERGY, PUBLIC HEALTH REFERRALS PFS REFERRAL NEEDED?NO CLERGY REFERRAL NEEDED?NO PUBLIC HEALTH REFERRAL NEEDED?NO WAS THE PROVIDER NOTIFIED OF ANY PERTINENT INFO?YES HAS THE PATIENT BEEN EDUCATED REGARDING HIS/HER PLAN OF CARE?YES HAS THE PATIENT BEEN EDUCATED REGARDING PAIN, THE RISK FOR PAIN, THE IMPORTANCE OF EFFECTIVE PAIN MANAGEMENT, AND THE PAIN ASSESSMENT PROCESS?YES ADVANCE DIRECTIVE ADVANCE DIRECTIVE DISCUSSED WITH PATIENT:YES HCP MARLIN FARRELL [phone] HOSPITALIZATION/MAJOR DIAGNOSTIC PROCEDURE TIA 1996 [place] 2000 REVIEW OF SYSTEMS CONSTITUTIONAL: ANY RECENT FEVER NO . CHILLS NO . WEIGHT CHANGE OF UNKNOWN REASONS NO . GASTROENTEROLOGY: NEW UNEXPLAINABLE CHANGES IN BOWEL CONTROL NO . CONSTIPATION NO . GENITOURINARY: ANY NEW CHANGE IN BLADDER CONTROL? NO . NEUROLOGY: NEW ONSET DIZZINESS OR NEUROLOGICAL CHANGES NOT MENTIONED NO . NEW NUMBNESS OR PAIN PATTERNS NOT MENTIONED AND PERTINENT TO TODAY'S VISIT NO . CARDIOLOGY: NEW CHEST PRESSURE NO . NEW CHEST PAIN NO . RESPIRATORY: UNEXPLAINABLE COUGH NO . NEW SHORTNESS OF BREATH NO . VITAL SIGNS WT 243.0 LBS, HT 71 IN, BMI 33.89 INDEX, BP 140/88 MM HG, HR 61 /MIN, RR 18 /MIN, TEMP 97.0 F, OXYGEN SAT % 99, SAFE IN ENV? 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 EXAMINATION GENERAL EXAMINATION: GENERALNO ACUTE DISTRESS, WELL NOURISHED AND HYDRATED. PSYCHAPPROPRIATE MOOD AND AFFECT . LUNGS:CLEAR TO AUSCULTATION BILATERALLY, NO WHEEZES, RHONCHI, RALES. HEART:NO MURMURS, REGULAR RATE AND RHYTHM. BACK:DENIES POINT TENDERNESS ALONG LUMBAR SPINE, SURROUNDING SKIN SHOWS NO ERYTHEMA, ECCHYMOSIS, INCREASED WARMTH, AND/OR SKIN ERUPTIONS NOTED. POSITIVE MODIFIED SLR RIGHT SIDE . ASSESSMENTS INTERVERTEBRAL DISC DISORDERS WITH RADICULOPATHY, LUMBOSACRAL REGION - M51.17 (PRIMARY) TREATMENT INTERVERTEBRAL DISC DISORDERS WITH RADICULOPATHY, LUMBOSACRAL REGION NOTES: LESI L4-L5 L5-S1 EPIDURAL INFO PRINTED. 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 CLINICAL NOTES: 64-YEAR-OLD MALE IN FOR CHRONIC PAIN FOLLOW-UP. GIVEN PRESENTING SYMPTOMS AND RESULTS PHYSICAL EXAMINATION RECOMMEND LESI L4-L5 L5-S1 WITH POST PROCEDURAL FOLLOW-UP. PATIENT HAS EXPRESSED UNDERSTANDING OF AND WAS IN AGREEMENT WITH TREATMENT PLAN. GIVEN TIME TO ASK QUESTIONS AND EXPRESS CONCERNS. , ISTOP REGISTRY REVIEWED AND DEMONSTRATES COMPLLIANCE. (REF # [id number] ) BRINGS IN MEDICATIONS WHICH IS APPROPRIATE FOR WHAT WAS DISPENSED. RECENT URINE TOXICOLOGY REVIEWED. NO UNAUTHORIZED MEDICATIONS. NO ILLICIT SUBSTANCES AND PRESCRIBED MEDICATIONS WERE PRESENT. PROCEDURES PN WORKMANS' COMP OPINION IN YOUR OPINION, WAS THE INCIDENT THAT THE PATIENT DESCRIBED THE COMPETENT MEDICAL CAUSE OF THIS INJURY/ILLNESS? YES ARE THE PATIENT'S COMPLAINTS CONSISTENT WITH HIS/HER HISTORY OF THE INJURY/ILLNESS? YES IS THE PATIENT'S HISTORY OF THE INJURY/ILLNESS CONSISTENT WITH YOUR OBJECTIVE FINDING? YES WHAT IS THE PERCENTAGE OF TEMPORARY IMPAIRMENT? MODERATE TO MARKED = 66.7% IS THE PATIENT WORKING? NO DOCTOR ON SITE: NORMA TURNER MD PROCEDURE CODES FA211 ESTABILISHED PATIENT [facility] CHARGE DISPOSITION & COMMUNICATION FOLLOW UP POSTPROCEDURE (REASON: LESI L4-L5 L5-S1) ELECTRONICALLY SIGNED BY MARITZA CHOW ON 04/23/2020 AT 08:28 AM EDT DISCLAIMER : THIS IS A VISIT SUMMARY EXTRACTED FROM THE [employer] CHART. IT IS NOT A COPY OF THE [employer] PROGRESS NOTE. VIKY
== END ==
LOC: M PAIN 08:45
PROVIDERS: ATTEND Family Medicine
DX: M51.17 Intervertebral disc disorders with radiculopathy, lumbosacral region (principal); Z79.82 Long term (current) use of aspirin; Z79.891 Long term (current) use of opiate analgesic; Z79.899 Other long term (current) drug therapy; F17.210 Nicotine dependence, cigarettes, uncomplicated; Z88.1 Allergy status to other antibiotic agents; Z88.8 Allergy status to other drugs, medicaments and biological substances

== ENCOUNTER → 2020-05-01 | Outpatient (CLI) | payer OTHER | LOC: M LABSMTC 10:45 | PROVIDERS: ATTEND Anesthesiology | DX: Z20.828 Contact with and (suspected) exposure to other viral communicable diseases (principal) | CPT/HCPCS: C9803; U0003 ==

== ENCOUNTER → 2020-05-04 | Outpatient (CLI) | payer OTHER ==
[~2020-05-04] MED LIST changes: +ISOVUE-M 300 61% 15ML VIAL As Ordered ONE; +LIDOCAINE 1% SDV 30ML VIAL As Ordered ONE; +methylPREDNISolone SUSP 40MG/ML 1ML VIAL (DEPO MEDROL) As Ordered ONE
--- NOTE | 2020-05-04 12:49 | REP ---
C-ARM VIEWS OF THE LOWER LUMBAR SPINE: CLINICAL HISTORY: Pain. Three C-arm views of the lower lumbar spine performed during epidural injection by Dr. Roth. Needle is seen at the L4-5 level and a small amount of contrast is injected. 12 seconds of fluoroscopy time utilized. Electronically Signed by Claudy King MD 05/06/2020 11:12 P
--- NOTE | 2020-05-08 00:46 | ECWPNPC ---
PATIENT NAME: ACOSTA FARRELL : 1955 GENDER: MALE VISIT DATE: 05/04/2020 DISCHARGE DATE: 05/04/20 1105 VISIT LOCKED DATE TIME: PHYSICIAN: NORMA ROMERO MD RESOURCE: NORMA ROMERO MD REASON FOR APPOINTMENT 1. LESI L4/L5, L5/S1 W/C HISTORY OF PRESENT ILLNESS GENERAL: -. FALL RISK SCREENING: SCREENING :NO FALLS REPORTED IN THE LAST YEAR PAIN SCREENING: PATIENT HAS A COMPLAINT OF ACUTE OR CHRONIC PAIN :YES LOCATION OF PAIN:LOW BACK, RIGHT HIP, LEG(S) INTENSITY OF PAIN (SCALE OF 1 TO 10):8 WHAT DOES YOUR PAIN FEEL LIKE:ACHING, BURNING, CONTINOUS, SHARP, SHOOTING DURATION:CONSTANT PAIN IS INCREASED BY:ACTIVITIES, PROLONGED STANDING PAIN IS DECREASED BY: HEAT NURSING NOTE: -. PAIN CENTER INTAKE QUESTIONS: DO YOU HAVE A HISTORY OF MRSA? :NO DO YOU TAKE A BLOOD THINNERS? :NO DO YOU HAVE ANY BLEEDING DISORDERS? :NO ANY NEW NUMBNESS OR WEAKNESS IN YOUR LEGS OR ARMS? :NO ANY PACEMAKER,DEFIBRILLATOR, OR DORSAL COLUMN STIMULATOR? :NO DO YOU HAVE ANY RASHES OR OPEN SORES? :NO ARE YOU ALLERGIC TO IV DYE? :NO ARE YOU DIABETIC? :YES BORDERLINE, CONTROLLED BY DIET ANY NEW PROBLEMS WITH YOUR MEDICATIONS? :NO HAVE YOU RECEIVED A VACCINE IN THE PAST 30 DAYS? :NO DO YOU PLAN TO RECEIVE A VACCINE IN THE NEXT 21 DAYS? :NO DO YOU TAKE ANY IMMUNOSUPPRESSIVE MEDICATIONS? :NO ANY HISTORY OF SEIZURES? :NO ANY HISTORY OF CARDIAC ISSUES OR EVENTS? :YES HISTORY OF STROKE AND TIA 1995 DO YOU HAVE SLEEP APNEA? :NO ANY RECENT HEAD INJURY? :NO DO YOU HAVE ANY NEW INFECTIONS? :NO IS THERE A CHANCE YOU COULD BE ? :NO ARE YOU BREAST FEEDING? :NO WHEN DID YOU LAST EAT? : -05/03 2400 WHEN DID YOU LAST DRINK? : -05/04 0800 WHAT DID YOU LAST DRINK? : -WATER NAME OF PERSON DRIVING YOU HOME? : -BARBARA MCCRAY DO YOU HAVE ANY OTHER QUESTIONS OR CONCERNS? : - CURRENT MEDICATIONS TAKING NARCAN 4 MG/0.1ML LIQUID DIRECTED NASALLY , NOTES: NEVER HAS USED TAKING NALOXONE HCL 0.4 MG/ML SOLUTION CARTRIDGE DIRECTED INJECTION (WORKERS COMP) NEEDED FOR RESPIRATORY DEPRESION, NOTES: NEVER HAS USED TAKING VITAMIN D3 MAXIMUM STRENGTH 5000 UNIT CAPSULE 4 CAPSULES ORALLY 73328 UNIT CAPSULES ONCE WEEKLY, NOTES: 05/04 700 TAKING ASPIRIN ADULT LOW STRENGTH 81 MG TABLET DELAYED RELEASE 1 TABLET ORALLY ONCE A DAY, NOTES: 05/04 700 TAKING FINASTERIDE 5 MG TABLET 1 TABLET ORALLY ONCE A DAY, NOTES: 05/03 2030 TAKING FOLIC ACID 5 MG CAPSULE 1 CAPSULE ORALLY ONCE A DAY, NOTES: 05/04 700 TAKING VENTOLIN HFA AEROSOL SOLUTION 2 PUFFS NEEDED INHALATION EVERY 4 HRS NEEDED, NOTES: > 1 WEEK TAKING FUROSEMIDE 20 MG TABLET 1 TABLET ORALLY ONCE A DAY, NOTES: 05/04 700 TAKING AMLODIPINE BESYLATE 5 MG TABLET 1 TABLET ORALLY ONCE A DAY, NOTES: 05/03 2030 TAKING SIMVASTATIN 40 40MG TABLET ORAL DAILY, NOTES: 05/03 2030 TAKING LOSARTAN POTASSIUM 50 MG TABLET 1 TABLET ORALLY ONCE A DAY, NOTES: 05/03 2030 TAKING LEVOTHYROXINE SODIUM 150 MCG TABLET 162.5 TOTAL MCG ORALLY ONCE A DAY, NOTES: 05/04 700 TAKING LEVOTHYROXINE SODIUM 25 MCG TABLET 1/2 TABLET ON AN EMPTY STOMACH IN THE MORNING ORALLY ONCE A DAY, NOTES: 05/04 700 TAKING BACLOFEN 10 MG TABLET 2 TABS ORALLY (WORKERS COMP) BEFORE BEDTIME NEEDED FOR SPASMS, NOTES: 05/03 2030 TAKING HYDROCODONE-ACETAMINOPHEN 10-325 MG TABLET 2 TABLET NEEDED ORALLY EVERY 6 HOURS FOR PAIN (CHRONIC PAIN CODE D) MDD 4, NOTES: 05/01 TAKING TIZANIDINE HCL 4 MG TABLET 1.5 TABLET ORALLY FOR SPSTICITY BID (WORKERS COMP) MDD3, NOTES: 05/04 700 TAKING GABAPENTIN 300 MG CAPSULE 1 CAPSULE ORALLY 1 IN AM, 2 AT HS, NOTES: 05/04 700 NOT-TAKING KEPPRA 500 MG TABLET 1 TABLET ORALLY TWICE A DAY NOT-TAKING HYDRALAZINE HCL 25 MG TABLET 1 TABLET ORALLY BID NOT-TAKING TRAMADOL HCL ER 300 MG TABLET EXTENDED RELEASE 24 HOUR 1 TABLET ORALLY FOR PAIN (WORKERS COMP) ONCE A DAY (CODE D FOR CHRONIC PAIN) NOT-TAKING TRAMADOL HCL 50 MG TABLET 1 TABLET NEEDED ORALLY FOR PAIN EVERY 6 HRS MDD 4, NOTES: PLEASE CALL DR ROMERO BEFORE USING THIS MEDICATION MEDICATION LIST REVIEWED AND RECONCILED WITH THE PATIENT PAST MEDICAL HISTORY HYPERTENSION HYPOTHYROIDISM HX BACK PAIN HYPERLIPIDEMIA DM ( DIET CONTROLLED) ASTHMA (EXERCISE INDUSED) RENAL FAILURE ( CURRENTLY SEEING DR. ROME) ALLERGIES BACTRIM: SHAKES/TREMORS - ALLERGY ALL NSAIDS: RENAL FAILURE - CONTRAINDICATION SURGICAL HISTORY TONSILLECTOMY 1957 PIN INSERTED LEFT FEMUR 1973 PIN REMOVED LEFT FEMUR 1973 RIGHT CARPAL TUNNEL REPAIR VASECTOMY 1978 FAMILY HISTORY FATHER: 72 YRS, DIAGNOSED WITH UNSPECIFIED HEART DISEASE MOTHER: 73 YRS, OTHER MALIGNANT NEOPLASM OF UNSPECIFIED SITE SIBLINGS: ALIVE 1 BROTHER(S) , 1 SISTER(S) - HEALTHY. 1 SON(S) , 1 DAUGHTER(S) - HEALTHY. SOCIAL HISTORY GENERAL: TOBACCO USE ARE YOU A:CURRENT SMOKER CESSATION ENCOURAGED. HOW MANY CIGARETTES A DAY DO YOU SMOKE?6-10 ARE YOU INTERESTED IN QUITTING?READY TO QUIT PATIENT COUNSELED ON THE DANGERS OF TOBACCO USE AND URGED TO QUIT:04/20/2020 COUNSELED THE PATIENT ON TOBACCO USE, CESSATION [id number]/26/2020 SMOKING CESSATION INFORMATION GIVEN04/20/2020 LATEX QUESTIONNAIRE LATEX ALLERGY : HAVE YOU EVER DEVELOPED ANY TYPE OF REACTION AFTER HANDLING LATEX PRODUCTS SUCH RUBBER GLOVES, CONDOMS, DIAPHRAGMS, BALLOONS, SOCKS, OR UNDERWEAR?NO LATEX ALLERGY : HAVE YOU EVER DEVELOPED ANY TYPE OF REACTION DURING OR AFTER DENTAL APPOINTMENT, VAGINAL/RECTAL EXAMINATION, SURGICAL PROCEDURE, OR ANY OTHER EXPOSURE?NO DATE ASKED : 04/20/2020 LATEX RISK : HAVE YOU EVER HAD ANY DIFFICULTY BREATHING OR HIVES AFTER EATING OR HANDLING ANY FRUITS, OR VEGETABLES; SUCH KIWI, BANANAS, STONE FRUITS, OR CHESTNUTSNO LATEX RISK : DO YOU HAVE A PREVIOUS PERSONAL HISTORY OF MORE THAN NINE SURGERIES, SPINA BIFIDA, OR REPEATED CATHERIZATIONS? NO LATEX RISK : ARE YOU FREQUENTLY EXPOSED TO LATEX PRODUCTS IN YOUR OCCUPATION?NO ALCOHOL SCREENING DID YOU HAVE A DRINK CONTAINING ALCOHOL IN THE PAST YEAR?YES HOW MANY DRINKS DID YOU HAVE ON A TYPICAL DAY WHEN YOU WERE DRINKING IN THE PAST YEAR?1 OR 2 (0 POINTS) HOW OFTEN DID YOU HAVE A DRINK CONTAINING ALCOHOL IN THE PAST YEAR?MONTHLY OR LESS (1 POINT) POINTS1 INTERPRETATIONNEGATIVE CAFFEINE CAFFEINE USE?YES HOW OFTEN AND HOW MUCH? 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 DIET: NO ADDED SALT. EXERCISE: WALKS. MARITAL STATUS: .. OTHERS AT HOME: OTHER NON-RELATIVE. PAIN CLINIC PFS, CLERGY, PUBLIC HEALTH REFERRALS PFS REFERRAL NEEDED?NO CLERGY REFERRAL NEEDED?NO PUBLIC HEALTH REFERRAL NEEDED?NO WAS THE PROVIDER NOTIFIED OF ANY PERTINENT INFO?YES HAS THE PATIENT BEEN EDUCATED REGARDING HIS/HER PLAN OF CARE?YES HAS THE PATIENT BEEN EDUCATED REGARDING PAIN, THE RISK FOR PAIN, THE IMPORTANCE OF EFFECTIVE PAIN MANAGEMENT, AND THE PAIN ASSESSMENT PROCESS?YES ADVANCE DIRECTIVE ADVANCE DIRECTIVE DISCUSSED WITH PATIENT:YES HCP MARLIN FARRELL [phone] HOSPITALIZATION/MAJOR DIAGNOSTIC PROCEDURE TIA 1996 [place] 2000 VITAL SIGNS WT 238 LBS, HT 71 IN, BMI 33.19 INDEX, BP 154/84 MM HG, HR 73 /MIN, RR 20 /MIN, TEMP 96.8 F, OXYGEN SAT % 99%, SAFE IN ENV? (Y/N) YES, NA INITIALS [place] 09:40, REVIEWED BY: ASSESSMENTS INTERVERTEBRAL DISC DISORDERS WITH RADICULOPATHY, LUMBAR REGION - M51.16 (PRIMARY) INTERVERTEBRAL DISC DISORDERS WITH RADICULOPATHY, LUMBOSACRAL REGION - M51.17 TREATMENT INTERVERTEBRAL DISC DISORDERS WITH RADICULOPATHY, LUMBAR REGION [facility] FLUORO GUIDE SPINE INJECTION (PAIN)[id number] INTERVERTEBRAL DISC DISORDERS WITH RADICULOPATHY, LUMBOSACRAL REGION [facility] FLUORO GUIDE SPINE INJECTION (PAIN)[id number] PROCEDURES PAIN NURSING RECORD PROCEDURE IN ROOM 1015, PHYSICIAN IN ROOM 1029, START 1032, FINISH 1038 FLUOROSCOPY TIME 12 SEC, PHYSICIAN OUT OF ROOM 1040, OUT OF ROOM 1050, STEROID DEPOMEDROL, O2 N/A, ECG NORMAL SINUS, PATIENT SHIELDED YES, SAFETY STRAP YES, PREP BETADINE, IV INFUSED N/A, DRESSING TEGADERM LOC: 1. ALERT, ORIENTED RESP: 1. REGULAR, NO DYSPNEA COLOR: 1. PINK SKIN: 1. WARM, DRY POSITION: 1. PRONE VITALS: 1027 121/83 67-16 97% 1030 118/82 62-16 95% 1045 141/83 60-16 97% 1055 129/85 67-16 98% DISCHARGE: POST PAIN 4, DRESSING SITE DRY AND INTACT, IV N/A, GAIT STEADY, TEACHING COMPLETED, PATIENT ACKNOWLEDGES UNDERSTANDING YES, PATIENT DISCHARGED AT 1108 PN WORKMANS' COMP OPINION IN YOUR OPINION, WAS THE INCIDENT THAT THE PATIENT DESCRIBED THE COMPETENT MEDICAL CAUSE OF THIS INJURY/ILLNESS? YES ARE THE PATIENT'S COMPLAINTS CONSISTENT WITH HIS/HER HISTORY OF THE INJURY/ILLNESS? YES IS THE PATIENT'S HISTORY OF THE INJURY/ILLNESS CONSISTENT WITH YOUR OBJECTIVE FINDING? YES WHAT IS THE PERCENTAGE OF TEMPORARY IMPAIRMENT? MODERATE TO MARKED = 66.7% . IS THE PATIENT WORKING? NO . DOCTOR ON SITE: NORMA TURNER MD PRE PROCEDURE DIAGNOSIS LUMBAR DISC DISORDER WITH RADICULOPATHY POST PROCEDURE DIAGNOSIS LUMBAR DISC DISORDER WITH RADICULOPATHY PROCEDURE LUMBAR EPIDURAL STEROID INJECTION UNDER FLUOROSCOPIC GUIDANCE SURGEON DR. NORMA ROMERO INSTRUMENTATION ENGINEER NONE ANESTHESIA LOCAL PRE PROCEDURE NOTE THE PATIENT HAS A HISTORY OF CHRONIC LOW BACK PAIN. I EVALUATED THE PATIENT AND REVIEWED THE CHART. I WENT OVER THE RISKS, ALTERNATIVES, AND BENEFITS ASSOCIATED WITH THIS PROCEDURE. I DISCUSSED THAT THE USE OF STEROIDS MAY CONTRIBUTE TO IMMUNOSUPPRESSION OF THE PATIENT'S BODY AGAINST INFECTIONS SUCH COVID-19. I DISCUSSED THE USE OF DEXAMETHASONE INSTEAD OF DEPO-MEDROL; HOWEVER, THE PATIENT WOULD LIKE TO MOVE FORWARD WITH DEPO-MEDROL. THE PATIENT IS AWARE OF THE POTENTIAL COMPLICATIONS ASSOCIATED WITH THIS VIRUS, INCLUDING, BUT NOT LIMITED TO, . THE PATIENT WOULD LIKE TO PROCEED AND GIVE CONSENT TO PERFORMED THE PROCEDURE. THE PATIENT DENIES UNEXPLAINABLE WEIGHT LOSS, FEVER, CHILLS, OR NEW CHANGES IN URINARY OR BOWEL CONTROL. THE PATIENT IS COVID-19 NEGATIVE DESCRIPTION OF PROCEDURE THE PATIENT WAS BROUGHT TO THE PROCEDURE ROOM AND PLACED IN THE PRONE POSITION. THE LUMBOSACRAL AREA WAS CLEANED WITH BETADINE SOLUTION AND DRAPED ASEPTICALLY. THE PROCEDURE WAS DONE UNDER STERILE CONDITIONS. A TIMEOUT WAS PERFORMED WHERE LATERALITY AND THE SITE OF THE PROCEDURE WERE CHECKED AND CONFIRMED WITH EVERYONE IN THE ROOM. UNDER FLUOROSCOPIC GUIDANCE, THE TARGET POINT WAS SELECTED AT THE INTERLAMINAR LEVEL OF L4-L5. LIDOCAINE WAS USED TO NUMB THE SKIN AND THE SUBCUTANEOUS TISSUE BELOW IT. EPIDURAL TUOHY NEEDLE, 17-GAUGE, WAS ADVANCED UNDER FLUOROSCOPIC GUIDANCE AND FOLLOWING PATIENT FEEDBACK UNTIL THE EPIDURAL SPACE WAS REACHED 7 CM DEEP INTO THE SKIN BY THE LOSS OF RESISTANCE TECHNIQUE. ISOVUE-M DYE 30%, 0.25 ML, WAS INJECTED SHOWING ADEQUATE SPREAD OF THE DYE. THEN, A SOLUTION OF 3 ML OF NORMAL SALINE WITH DEPO-MEDROL 80 MG WAS INJECTED SLOWLY FOLLOWING PATIENT FEEDBACK. THE MEDICATIONS WERE VERIFIED WITH THE NURSE. THERE WAS NO EVIDENCE OF BLOOD, PARESTHESIA OR CEREBROSPINAL FLUID DURING THE PROCEDURE. THE PATIENT WAS SENT TO THE RECOVERY ROOM. THE PATIENT WAS MOVING THE EXTREMITIES AND DOING WELL. THERE WERE NO COMPLICATIONS DURING THE PROCEDURE. ESTIMATED BLOOD LOSS WAS LESS THAN 5 ML. FLUOROSCOPY TIME WAS 12 SECONDS POST PROCEDURE NOTE THE PATIENT WILL BE SEEN IN A FOLLOW UP IN THE NEXT FEW WEEKS. I AM LOOKING FOR LONG LASTING RELIEF FOR THE PATIENT WITH THIS INTERVENTION. INSTRUCTIONS WERE GIVEN, QUESTIONS WERE ANSWERED, AND THE PATIENT EXPRESSED UNDERSTANDING AND AGREES WITH THE PLAN. THE PATIENT IS AWARE TO STAY HOME FOR THE NEXT WEEK, IF POSSIBLE, DUE TO COVID-1. I, MANASA VELASQUEZ, DOCUMENTED THE ABOVE INFORMATION ACTING A SCRIBE FOR DR. ROMERO. 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 IT IS NOT A COPY OF THE [employer] PROGRESS NOTE. MTDKrysten
== END ==
LOC: M PAIN 09:45
PROVIDERS: ATTEND Anesthesiology
DX: M51.16 Intervertebral disc disorders with radiculopathy, lumbar region (principal); M51.17 Intervertebral disc disorders with radiculopathy, lumbosacral region
CPT/HCPCS: 62323; J1030; Q9967

== ENCOUNTER → 2020-07-19 | Outpatient (CLI) | payer OTHER ==
[~2020-07-19] MED LIST changes: -ISOVUE-M 300 61% 15ML VIAL As Ordered ONE; -LIDOCAINE 1% SDV 30ML VIAL As Ordered ONE; -methylPREDNISolone SUSP 40MG/ML 1ML VIAL (DEPO MEDROL) As Ordered ONE
== END ==
LOC: M PAIN 08:46
PROVIDERS: ATTEND Family Medicine
DX: M51.17 Intervertebral disc disorders with radiculopathy, lumbosacral region (principal)

== ENCOUNTER → 2020-09-17 | Outpatient (CLI) | payer OTHER ==
--- NOTE | 2020-09-19 05:05 | ECWPNPC ---
PATIENT NAME: ACOSTA FARRELL : 1955 GENDER: MALE VISIT DATE: 09/17/2020 DISCHARGE DATE: 09/17/20937 VISIT LOCKED DATE TIME: PHYSICIAN: STEPHEN SCHULTZ RESOURCE: STEPHEN SCHULTZ REASON FOR APPOINTMENT 1. W/C BACK HISTORY OF PRESENT ILLNESS GENERAL: 64-YEAR-OLD MALE IN FOR WORKER'S COMP. CHRONIC PAIN FOLLOW-UP. HE RATES HIS PAIN CURRENTLY AT A 6 OUT OF 10 AND DESCRIBES IT ACHING, AND SHARP. PATIENT HAS HAD LUMBAR EPIDURALS IN THE PAST WITH GOOD RESULTS AND WE WILL DISCUSS REPEAT PROCEDURES TODAY. GOALS OF SAID PROCEDURE ARE INCREASED FUNCTIONALITY AND A DECREASE IN PAIN. 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 THE PATIENT STATES HIS PAIN BEGINS IN HIS LOW BACK AND RADIATES DOWN HIS LEGS, BUT HIS RIGHT LEG IS AFFECTED MORE. NURSING NOTE: - -. FALL RISK SCREENING: SCREENING :NO FALLS REPORTED IN THE LAST YEAR PAIN SCREENING: PATIENT HAS A COMPLAINT OF ACUTE OR CHRONIC PAIN :YES LOCATION OF PAIN:RIGHT HIP, THIGH(S) INTENSITY OF PAIN (SCALE OF 1 TO 10):6 WHAT DOES YOUR PAIN FEEL LIKE:ACHING, SHARP DURATION:CONSTANT PAIN IS INCREASED BY:ACTIVITIES, PROLONGED STANDING PAIN IS DECREASED BY:USE OF PAIN MEDICATIONS, SITTING PAIN CENTER INTAKE QUESTIONS: DO YOU HAVE A HISTORY OF MRSA? :NO DO YOU TAKE A BLOOD THINNERS? :NO DO YOU HAVE ANY BLEEDING DISORDERS? :NO ANY NEW NUMBNESS OR WEAKNESS IN YOUR LEGS OR ARMS? :NO ANY PACEMAKER,DEFIBRILLATOR, OR DORSAL COLUMN STIMULATOR? :NO DO YOU HAVE ANY RASHES OR OPEN SORES? :NO ARE YOU ALLERGIC TO IV DYE? :NO ARE YOU DIABETIC? :YES BORDERLINE ANY NEW PROBLEMS WITH YOUR MEDICATIONS? :NO HAVE YOU RECEIVED A VACCINE IN THE PAST 30 DAYS? :NO DO YOU PLAN TO RECEIVE A VACCINE IN THE NEXT 21 DAYS? :YES IF COVID-19 VACCINE BECOMES AVAILABLE DO YOU NEED ANY PRESCRIPTION? :NO DO YOU TAKE ANY IMMUNOSUPPRESSIVE MEDICATIONS? :NO IS THERE A CHANCE YOU COULD BE ? :NO ARE YOU BREAST FEEDING? :NO CURRENT MEDICATIONS TAKING NARCAN 4 MG/0.1ML LIQUID DIRECTED NASALLY , NOTES: NEVER HAS USED TAKING NALOXONE HCL 0.4 MG/ML SOLUTION CARTRIDGE DIRECTED INJECTION (WORKERS COMP) NEEDED FOR RESPIRATORY DEPRESION, NOTES: NEVER HAS USED TAKING VITAMIN D3 MAXIMUM STRENGTH 5000 UNIT CAPSULE 2 CAPSULES ORALLY 2 CAPSULES TWICE WEEKLY TAKING ASPIRIN ADULT LOW STRENGTH 81 MG TABLET DELAYED RELEASE 1 TABLET ORALLY ONCE A DAY, NOTES: 05/04 700 TAKING FINASTERIDE 5 MG TABLET 1 TABLET ORALLY ONCE A DAY, NOTES: 05/03 2030 TAKING FOLIC ACID 5 MG CAPSULE 1 CAPSULE ORALLY ONCE A DAY, NOTES: 05/04 700 TAKING VENTOLIN HFA AEROSOL SOLUTION 2 PUFFS NEEDED INHALATION EVERY 4 HRS NEEDED, NOTES: > 1 WEEK TAKING FUROSEMIDE 20 MG TABLET 1 TABLET ORALLY ONCE A DAY, NOTES: 05/04 700 TAKING AMLODIPINE BESYLATE 5 MG TABLET 1 TABLET ORALLY ONCE A DAY, NOTES: 05/03 2030 TAKING SIMVASTATIN 40 40MG TABLET ORAL DAILY, NOTES: 05/03 2030 TAKING LOSARTAN POTASSIUM 50 MG TABLET 1 TABLET ORALLY TWICE A DAY, NOTES: 05/03 2030 TAKING LEVOTHYROXINE SODIUM 150 MCG TABLET 162.5 TOTAL MCG ORALLY ONCE A DAY TAKING LEVOTHYROXINE SODIUM 25 MCG TABLET 1 TABLET IN THE MORNING ON AN EMPTY STOMACH ORALLY ONCE A DAY TAKING BACLOFEN 10 MG TABLET 2 TABS ORALLY (WORKERS COMP) BEFORE BEDTIME TAKING TIZANIDINE HCL 4 MG TABLET 1.5 TABLET ORALLY FOR SPSTICITY BID (WORKERS COMP) MDD3 TAKING GABAPENTIN 300 MG CAPSULE 1 CAPSULE ORALLY 1 IN AM, 2 AT HS TAKING HYDROCODONE-ACETAMINOPHEN 10-325 MG TABLET 2 TABLET NEEDED ORALLY EVERY 6 HOURS FOR PAIN (CHRONIC PAIN CODE D) MDD 4, NOTES: 05/01 NOT-TAKING KEPPRA 500 MG TABLET 1 TABLET ORALLY TWICE A DAY NOT-TAKING HYDRALAZINE HCL 25 MG TABLET 1 TABLET ORALLY BID NOT-TAKING TRAMADOL HCL ER 300 MG TABLET EXTENDED RELEASE 24 HOUR 1 TABLET ORALLY FOR PAIN (WORKERS COMP) ONCE A DAY (CODE D FOR CHRONIC PAIN) NOT-TAKING TRAMADOL HCL 50 MG TABLET 1 TABLET NEEDED ORALLY FOR PAIN EVERY 6 HRS MDD 4, NOTES: PLEASE CALL DR ROMERO BEFORE USING THIS MEDICATION MEDICATION LIST REVIEWED AND RECONCILED WITH THE PATIENT PAST MEDICAL HISTORY HYPERTENSION HYPOTHYROIDISM HX BACK PAIN HYPERLIPIDEMIA DM ( DIET CONTROLLED) ASTHMA (EXERCISE INDUSED) RENAL FAILURE ( CURRENTLY SEEING DR. ROME) ALLERGIES BACTRIM: SHAKES/TREMORS - ALLERGY ALL NSAIDS: RENAL FAILURE - CONTRAINDICATION SURGICAL HISTORY TONSILLECTOMY 1957 PIN INSERTED LEFT FEMUR 1973 PIN REMOVED LEFT FEMUR 1973 RIGHT CARPAL TUNNEL REPAIR VASECTOMY 1978 FAMILY HISTORY FATHER: 72 YRS, DIAGNOSED WITH UNSPECIFIED HEART DISEASE MOTHER: 73 YRS, OTHER MALIGNANT NEOPLASM OF UNSPECIFIED SITE SIBLINGS: ALIVE 1 BROTHER(S) , 1 SISTER(S) - HEALTHY. 1 SON(S) , 1 DAUGHTER(S) - HEALTHY. SOCIAL HISTORY GENERAL: TOBACCO USE ARE YOU A:CURRENT SMOKER CESSATION ENCOURAGED. ARE YOU INTERESTED IN QUITTING?READY TO QUIT COUNSELED THE PATIENT ON TOBACCO USE, CESSATION [id number]/23/2020 HOW MANY CIGARETTES A DAY DO YOU SMOKE?6-10 PATIENT COUNSELED ON THE DANGERS OF TOBACCO USE AND URGED TO QUIT:09/17/2020 SMOKING CESSATION INFORMATION GIVEN09/17/2020 LATEX QUESTIONNAIRE LATEX ALLERGY : HAVE YOU EVER DEVELOPED ANY TYPE OF REACTION AFTER HANDLING LATEX PRODUCTS SUCH RUBBER GLOVES, CONDOMS, DIAPHRAGMS, BALLOONS, SOCKS, OR UNDERWEAR?NO LATEX ALLERGY : HAVE YOU EVER DEVELOPED ANY TYPE OF REACTION DURING OR AFTER DENTAL APPOINTMENT, VAGINAL/RECTAL EXAMINATION, SURGICAL PROCEDURE, OR ANY OTHER EXPOSURE?NO LATEX RISK : HAVE YOU EVER HAD ANY DIFFICULTY BREATHING OR HIVES AFTER EATING OR HANDLING ANY FRUITS, OR VEGETABLES; SUCH KIWI, BANANAS, STONE FRUITS, OR CHESTNUTSNO LATEX RISK : DO YOU HAVE A PREVIOUS PERSONAL HISTORY OF MORE THAN NINE SURGERIES, SPINA BIFIDA, OR REPEATED CATHERIZATIONS? NO LATEX RISK : ARE YOU FREQUENTLY EXPOSED TO LATEX PRODUCTS IN YOUR OCCUPATION?NO DATE ASKED : 09/17/2020 ALCOHOL SCREENING DID YOU HAVE A DRINK CONTAINING ALCOHOL IN THE PAST YEAR?YES HOW OFTEN DID YOU HAVE A DRINK CONTAINING ALCOHOL IN THE PAST YEAR?MONTHLY OR LESS (1 POINT) HOW MANY DRINKS DID YOU HAVE ON A TYPICAL DAY WHEN YOU WERE DRINKING IN THE PAST YEAR?1 OR 2 (0 POINTS) POINTS1 INTERPRETATIONNEGATIVE CAFFEINE CAFFEINE USE?YES HOW OFTEN AND HOW MUCH? 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 DIET: NO ADDED SALT. EXERCISE: WALKS. MARITAL STATUS: .. OTHERS AT HOME: OTHER NON-RELATIVE. PAIN CLINIC PFS, CLERGY, PUBLIC HEALTH REFERRALS PFS REFERRAL NEEDED?NO CLERGY REFERRAL NEEDED?NO PUBLIC HEALTH REFERRAL NEEDED?NO WAS THE PROVIDER NOTIFIED OF ANY PERTINENT INFO?YES HAS THE PATIENT BEEN EDUCATED REGARDING HIS/HER PLAN OF CARE?YES HAS THE PATIENT BEEN EDUCATED REGARDING PAIN, THE RISK FOR PAIN, THE IMPORTANCE OF EFFECTIVE PAIN MANAGEMENT, AND THE PAIN ASSESSMENT PROCESS?YES ADVANCE DIRECTIVE ADVANCE DIRECTIVE DISCUSSED WITH PATIENT:YES HCP MARLIN FARRELL [phone] HOSPITALIZATION/MAJOR DIAGNOSTIC PROCEDURE TIA 1997 [place] 2000 REVIEW OF SYSTEMS CONSTITUTIONAL: ANY RECENT FEVER NO . CHILLS NO . WEIGHT CHANGE OF UNKNOWN REASONS NO . GASTROENTEROLOGY: NEW UNEXPLAINABLE CHANGES IN BOWEL CONTROL NO . CONSTIPATION NO . GENITOURINARY: ANY NEW CHANGE IN BLADDER CONTROL? NO . NEUROLOGY: NEW ONSET DIZZINESS OR NEUROLOGICAL CHANGES NOT MENTIONED NO . NEW NUMBNESS OR PAIN PATTERNS NOT MENTIONED AND PERTINENT TO TODAY'S VISIT NO . CARDIOLOGY: NEW CHEST PRESSURE NO . NEW CHEST PAIN NO . RESPIRATORY: UNEXPLAINABLE COUGH NO . NEW SHORTNESS OF BREATH NO . VITAL SIGNS WT 249 LBS, HT 71 IN, BMI 34.72 INDEX, BP 133/88 MM HG, HR 61 /MIN, RR 20 /MIN, TEMP 96.2 F, OXYGEN SAT % 99%, SAFE IN ENV? (Y/N) YES, NA INITIALS CO 08:56REVIEWED 09/17/20 0907 Ender ROSENTHAL RN. EXAMINATION GENERAL EXAMINATION: GENERALNO ACUTE DISTRESS, WELL NOURISHED AND HYDRATED. PSYCHAPPROPRIATE MOOD AND AFFECT . LUNGS:CLEAR TO AUSCULTATION BILATERALLY, NO WHEEZES, RHONCHI, RALES. HEART:NO MURMURS, REGULAR RATE AND RHYTHM. BACK:POINT TENDER ALONG LUMBAR SPINE RIGHT GREATER THAN LEFT, SURROUNDING SKIN SHOWS NO ERYTHEMA, ECCHYMOSIS, INCREASED WARMTH, AND/OR SKIN ERUPTIONS NOTED. . MUSCULOSKELETAL:EQUAL STRENGTH OF THE LOWER EXTREMITIES BILATERALLY . ASSESSMENTS INTERVERTEBRAL DISC DISORDERS WITH RADICULOPATHY, LUMBOSACRAL REGION - M51.17 (PRIMARY) TREATMENT INTERVERTEBRAL DISC DISORDERS WITH RADICULOPATHY, LUMBOSACRAL REGION [facility] MRI SPINE, L.S. WITH [id number] NOTES: 64-YEAR-OLD MALE IN FOR WORKER'S COMP. CHRONIC PAIN FOLLOW-UP. GIVEN PRESENTING SYMPTOMS AND RESULTS OF PHYSICAL EXAMINATION RECOMMENDED LESI L4-L5 L5-S1 WITH POSTPROCEDURAL FOLLOW-UP. PATIENT HAS EXPRESSED UNDERSTANDING OF AND WAS IN AGREEMENT WITH TREATMENT PLAN. GIVEN TIME TO ASK QUESTIONS AND EXPRESS CONCERNS. , [employer] REGISTRY REVIEWED AND DEMONSTRATES COMPLLIANCE. (REF # [id number] ) BRINGS IN MEDICATIONS WHICH IS APPROPRIATE FOR WHAT WAS DISPENSED. RECENT URINE TOXICOLOGY REVIEWED. NO UNAUTHORIZED MEDICATIONS. NO ILLICIT SUBSTANCES AND PRESCRIBED MEDICATIONS WERE PRESENT. PROCEDURES PN WORKMANS' COMP OPINION IN YOUR OPINION, WAS THE INCIDENT THAT THE PATIENT DESCRIBED THE COMPETENT MEDICAL CAUSE OF THIS INJURY/ILLNESS? YES ARE THE PATIENT'S COMPLAINTS CONSISTENT WITH HIS/HER HISTORY OF THE INJURY/ILLNESS? YES IS THE PATIENT'S HISTORY OF THE INJURY/ILLNESS CONSISTENT WITH YOUR OBJECTIVE FINDING? YES WHAT IS THE PERCENTAGE OF TEMPORARY IMPAIRMENT? MODERATE TO MARKED = 66.7% IS THE PATIENT WORKING? NO DOCTOR ON SITE: NORMA TURNER MD PROCEDURE CODES [id number] ESTABILISHED PATIENT [facility] FACILITY CHARGE DISPOSITION & COMMUNICATION FOLLOW UP POSTPROCEDURE (REASON: LUMBAR MRI THEN LESI L4-L5 L5-S1) ELECTRONICALLY SIGNED BY MARITZA CHOW ON 09/18/2020 AT 08:58 AM EST DISCLAIMER : THIS IS A VISIT SUMMARY EXTRACTED FROM THE [facility] [employer] CHART. IT IS NOT A COPY OF THE [facility] [employer] PROGRESS NOTE. VIKY
== END ==
LOC: M PAIN 09:00
PROVIDERS: ATTEND Family Medicine
DX: M51.17 Intervertebral disc disorders with radiculopathy, lumbosacral region (principal); G89.29 Other chronic pain; E11.9 Type 2 diabetes mellitus without complications; I10 Essential (primary) hypertension; E03.9 Hypothyroidism, unspecified; J45.909 Unspecified asthma, uncomplicated; F17.210 Nicotine dependence, cigarettes, uncomplicated; Z88.1 Allergy status to other antibiotic agents; Z88.6 Allergy status to analgesic agent; Z79.82 Long term (current) use of aspirin; Z79.899 Other long term (current) drug therapy

== ENCOUNTER → 2020-11-07 | Outpatient (CLI) | payer OTHER | LOC: M LABSMTC 09:35 | PROVIDERS: ATTEND Anesthesiology | DX: Z20.822 Contact with and (suspected) exposure to COVID-19 (principal) ==

== ENCOUNTER → 2020-11-12 | Outpatient (CLI) | payer OTHER ==
[~2020-11-12] MED LIST changes: +ISOVUE-M 300 61% 15ML VIAL As Ordered ONE; +LIDOCAINE 1% SDV 30ML VIAL As Ordered ONE; +methylPREDNISolone SUSP 40MG/ML 1ML VIAL (DEPO MEDROL) As Ordered ONE
--- NOTE | 2020-11-12 10:46 | REP ---
INDICATION: LUMBAR EPIDURAL STEROID INJECTION. COMPARISON: None. TECHNIQUE: Three views. 19.8 seconds of fluoroscopy time is reported. FINDINGS: A sequence of 3 last image hold fluoroscopically obtained spot radiograph(s) of the lumbar spine document(s) needle position(s) and contrast injection associated with injection procedure. IMPRESSION: Procedural imaging. <Electronically signed by Chun Andrew > 11/12/20 1041
--- NOTE | 2020-11-13 03:13 | ECWPNPC ---
PATIENT NAME: ACOSTA FARRELL : 1955 GENDER: MALE VISIT DATE: 11/12/2020 DISCHARGE DATE: 11/12/20 1049 VISIT LOCKED DATE TIME: PHYSICIAN: NORMA ROMERO MD RESOURCE: NORMA ROMERO MD REASON FOR APPOINTMENT 1. LUMBAR EPIDURAL STEROID INJECTION HISTORY OF PRESENT ILLNESS GENERAL: -. FALL RISK SCREENING: SCREENING :NO FALLS REPORTED IN THE LAST YEAR PAIN SCREENING: PATIENT HAS A COMPLAINT OF ACUTE OR CHRONIC PAIN :YES LOCATION OF PAIN:LOW BACK, LEG(S) INTENSITY OF PAIN (SCALE OF 1 TO 10):9 WHAT DOES YOUR PAIN FEEL LIKE:ACHING, BURNING, CONTINOUS, SHARP, STABBING, SHOOTING DURATION:CONTINOUS PAIN IS INCREASED BY:PROLONGED STANDING PAIN IS DECREASED BY:OTHERS REST NURSING NOTE: -. PAIN CENTER INTAKE QUESTIONS: DO YOU HAVE A HISTORY OF MRSA? :NO DO YOU TAKE A BLOOD THINNERS? :NO DO YOU HAVE ANY BLEEDING DISORDERS? :NO ANY NEW NUMBNESS OR WEAKNESS IN YOUR LEGS OR ARMS? :NO ANY PACEMAKER,DEFIBRILLATOR, OR DORSAL COLUMN STIMULATOR? :NO DO YOU HAVE ANY RASHES OR OPEN SORES? :NO ARE YOU ALLERGIC TO IV DYE? :NO ARE YOU DIABETIC? :NO ANY NEW PROBLEMS WITH YOUR MEDICATIONS? :NO HAVE YOU RECEIVED A VACCINE IN THE PAST 30 DAYS? :NO DO YOU PLAN TO RECEIVE A VACCINE IN THE NEXT 21 DAYS? :NO DO YOU NEED ANY PRESCRIPTION? :NO DO YOU TAKE ANY IMMUNOSUPPRESSIVE MEDICATIONS? :NO ANY HISTORY OF SEIZURES? :NO ANY HISTORY OF CARDIAC ISSUES OR EVENTS? :YES HEART ATTACK 1996, [id number] DO YOU HAVE SLEEP APNEA? :NO ANY RECENT HEAD INJURY? :NO DO YOU HAVE ANY NEW INFECTIONS? :NO IS THERE A CHANCE YOU COULD BE ? :NO ARE YOU BREAST FEEDING? :NO WHEN DID YOU LAST EAT? : -11/11/20 1700 WHEN DID YOU LAST DRINK? : -11/12/20 0700 WHAT DID YOU LAST DRINK? : -WATER NAME OF PERSON DRIVING YOU HOME? : -FRIEND BARBARA DO YOU HAVE ANY OTHER QUESTIONS OR CONCERNS? : -NO CURRENT MEDICATIONS TAKING NARCAN 4 MG/0.1ML LIQUID DIRECTED NASALLY , NOTES: NEVER HAS USED TAKING VITAMIN D3 MAXIMUM STRENGTH 5000 UNIT CAPSULE 2 CAPSULES ORALLY 2 CAPSULES TWICE WEEKLY TAKING ASPIRIN ADULT LOW STRENGTH 81 MG TABLET DELAYED RELEASE 1 TABLET ORALLY ONCE A DAY TAKING FINASTERIDE 5 MG TABLET 1 TABLET ORALLY ONCE A DAY TAKING FOLIC ACID 5 MG CAPSULE 1 CAPSULE ORALLY ONCE A DAY TAKING VENTOLIN HFA AEROSOL SOLUTION 2 PUFFS NEEDED INHALATION EVERY 4 HRS NEEDED, NOTES: 11/12/20 0700 TAKING FUROSEMIDE 20 MG TABLET 1 TABLET ORALLY BID TAKING AMLODIPINE BESYLATE 5 MG TABLET 1 TABLET ORALLY ONCE A DAY, NOTES: 11/11/201999 TAKING SIMVASTATIN 40 40MG TABLET ORAL DAILY TAKING LOSARTAN POTASSIUM 50 MG TABLET 1 TABLET ORALLY TWICE A DAY, NOTES: 11/12/20 0700 TAKING LEVOTHYROXINE SODIUM 150 MCG TABLET 162.5 TOTAL MCG ORALLY ONCE A DAY TAKING LEVOTHYROXINE SODIUM 25 MCG TABLET 1 TABLET IN THE MORNING ON AN EMPTY STOMACH ORALLY ONCE A DAY TAKING BACLOFEN 10 MG TABLET 2 TABS ORALLY (WORKERS COMP) BEFORE BEDTIME TAKING HYDROCODONE-ACETAMINOPHEN 10-325 MG TABLET 2 TABLET NEEDED ORALLY EVERY 6 HOURS FOR PAIN (CHRONIC PAIN CODE D) MDD 4, NOTES: 11/09/20 TAKING TIZANIDINE HCL 4 MG TABLET 1.5 TABLET ORALLY FOR SPSTICITY BID (WORKERS COMP) MDD3 TAKING GABAPENTIN 300 MG CAPSULE 1 CAPSULE ORALLY 1 IN AM, 2 AT HS TAKING FENOFIBRATE 50 MG CAPSULE 1 CAPSULE WITH FOOD ORALLY ONCE A DAY TAKING METOPROLOL TARTRATE 25 MG TABLET 1 TABLET WITH FOOD ORALLY ONCE A DAY, NOTES: 0700 11/12/11 NOT-TAKING NALOXONE HCL 0.4 MG/ML SOLUTION CARTRIDGE DIRECTED INJECTION (WORKERS COMP) NEEDED FOR RESPIRATORY DEPRESION, NOTES: NEVER HAS USED NOT-TAKING KEPPRA 500 MG TABLET 1 TABLET ORALLY TWICE A DAY NOT-TAKING HYDRALAZINE HCL 25 MG TABLET 1 TABLET ORALLY BID NOT-TAKING TRAMADOL HCL ER 300 MG TABLET EXTENDED RELEASE 24 HOUR 1 TABLET ORALLY FOR PAIN (WORKERS COMP) ONCE A DAY (CODE D FOR CHRONIC PAIN) NOT-TAKING TRAMADOL HCL 50 MG TABLET 1 TABLET NEEDED ORALLY FOR PAIN EVERY 6 HRS MDD 4, NOTES: PLEASE CALL DR ROMERO BEFORE USING THIS MEDICATION DISCONTINUED METOPROLOL SUCCINATE 25 MG CAPSULE ER 24 HOUR SPRINKLE 1 CAPSULE ORALLY ONCE A DAY MEDICATION LIST REVIEWED AND RECONCILED WITH THE PATIENT PAST MEDICAL HISTORY HYPERTENSION HYPOTHYROIDISM HX BACK PAIN HYPERLIPIDEMIA DM ( DIET CONTROLLED) ASTHMA (EXERCISE INDUSED) RENAL FAILURE ( CURRENTLY SEEING DR. ROME) ALLERGIES BACTRIM: SHAKES/TREMORS - ALLERGY ALL NSAIDS: RENAL FAILURE - CONTRAINDICATION SURGICAL HISTORY TONSILLECTOMY 1957 PIN INSERTED LEFT FEMUR 1973 PIN REMOVED LEFT FEMUR 1973 RIGHT CARPAL TUNNEL REPAIR VASECTOMY 1978 FAMILY HISTORY FATHER: 72 YRS, DIAGNOSED WITH UNSPECIFIED HEART DISEASE MOTHER: 73 YRS, OTHER MALIGNANT NEOPLASM OF UNSPECIFIED SITE SIBLINGS: ALIVE 1 BROTHER(S) , 1 SISTER(S) - HEALTHY. 1 SON(S) , 1 DAUGHTER(S) - HEALTHY. SOCIAL HISTORY GENERAL: TOBACCO USE ARE YOU A:CURRENT SMOKER CESSATION ENCOURAGED. ARE YOU INTERESTED IN QUITTING?READY TO QUIT COUNSELED THE PATIENT ON TOBACCO USE, CESSATION [id number]/23/2020 HOW MANY CIGARETTES A DAY DO YOU SMOKE?6-10 PATIENT COUNSELED ON THE DANGERS OF TOBACCO USE AND URGED TO QUIT:11/09/2020 SMOKING CESSATION INFORMATION GIVEN09/17/2020 LATEX QUESTIONNAIRE LATEX ALLERGY : HAVE YOU EVER DEVELOPED ANY TYPE OF REACTION AFTER HANDLING LATEX PRODUCTS SUCH RUBBER GLOVES, CONDOMS, DIAPHRAGMS, BALLOONS, SOCKS, OR UNDERWEAR?NO LATEX ALLERGY : HAVE YOU EVER DEVELOPED ANY TYPE OF REACTION DURING OR AFTER DENTAL APPOINTMENT, VAGINAL/RECTAL EXAMINATION, SURGICAL PROCEDURE, OR ANY OTHER EXPOSURE?NO DATE ASKED : 09/17/2020 LATEX RISK : HAVE YOU EVER HAD ANY DIFFICULTY BREATHING OR HIVES AFTER EATING OR HANDLING ANY FRUITS, OR VEGETABLES; SUCH KIWI, BANANAS, STONE FRUITS, OR CHESTNUTSNO LATEX RISK : DO YOU HAVE A PREVIOUS PERSONAL HISTORY OF MORE THAN NINE SURGERIES, SPINA BIFIDA, OR REPEATED CATHERIZATIONS? NO LATEX RISK : ARE YOU FREQUENTLY EXPOSED TO LATEX PRODUCTS IN YOUR OCCUPATION?NO ALCOHOL SCREENING DID YOU HAVE A DRINK CONTAINING ALCOHOL IN THE PAST YEAR?YES HOW MANY DRINKS DID YOU HAVE ON A TYPICAL DAY WHEN YOU WERE DRINKING IN THE PAST YEAR?1 OR 2 (0 POINTS) HOW OFTEN DID YOU HAVE A DRINK CONTAINING ALCOHOL IN THE PAST YEAR?MONTHLY OR LESS (1 POINT) POINTS1 INTERPRETATIONNEGATIVE RECREATIONAL DRUG USE DRUG USE?NO CAFFEINE CAFFEINE USE?YES HOW OFTEN AND HOW MUCH? 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 DIET: NO ADDED SALT. EXERCISE: WALKS. MARITAL STATUS: .. OTHERS AT HOME: OTHER NON-RELATIVE. PAIN CLINIC PFS, CLERGY, PUBLIC HEALTH REFERRALS PFS REFERRAL NEEDED?NO CLERGY REFERRAL NEEDED?NO PUBLIC HEALTH REFERRAL NEEDED?NO WAS THE PROVIDER NOTIFIED OF ANY PERTINENT INFO?YES HAS THE PATIENT BEEN EDUCATED REGARDING HIS/HER PLAN OF CARE?YES HAS THE PATIENT BEEN EDUCATED REGARDING PAIN, THE RISK FOR PAIN, THE IMPORTANCE OF EFFECTIVE PAIN MANAGEMENT, AND THE PAIN ASSESSMENT PROCESS?YES ADVANCE DIRECTIVE ADVANCE DIRECTIVE DISCUSSED WITH PATIENT:YES HCP MARLIN FARRELL [phone] HOSPITALIZATION/MAJOR DIAGNOSTIC PROCEDURE TIA 1996 [place] 2000 VITAL SIGNS WT 254 LBS, HT 71 IN, BMI 35.42 INDEX, BP 137/90 MM HG, HR 65 /MIN, RR 20 /MIN, TEMP 97.1 F, OXYGEN SAT % 98%, SAFE IN ENV? (Y/N) YES, NA INITIALS ME 08:54, REVIEWED BY: GARY11/12/20 0905 REVIEWED. Ender ROSENTHAL RN. EXAMINATION GENERAL EXAMINATION: THE PATIENT IS ALERT, ORIENTED TIMES THREE AND COOPERATIVE. LUNGS ARE CLEAR TO AUSCULTATION. HEART SHOWS REGULAR RHYTHM, NO MURMURS AND NO GALLOPS. ASSESSMENTS INTERVERTEBRAL DISC DISORDERS WITH RADICULOPATHY, LUMBAR REGION - M51.16 (PRIMARY) TREATMENT INTERVERTEBRAL DISC DISORDERS WITH RADICULOPATHY, LUMBAR REGION [facility] FLU[facility]O GUIDE SPINE INJECTION (PAIN)[id number] OTHERS NOTES: PRE PROCEDURE PHONE CALL ATTEMPTED MESSAGE LEFT 11/09/2020 1438 N VIKTORIA PEREZ PRE PROCEDURE CALL COMPLETED 1645 TBRADLEYRN. PROCEDURES PAIN NURSING RECORD PROCEDURE IN ROOM 1014, PHYSICIAN IN ROOM 1019, START 1027, FINISH 103, PHYSICIAN OUT OF ROOM 1034, OUT OF ROOM 1039, ECG NORMAL SINUS, PATIENT SHIELDED YES, SAFETY STRAP YES, PREP ROLANDDINE Ender ROSENTHAL RN, DRESSING TEGADELUIS ROMERO LOC: IN ROOM 1014, PHYSICIAN IN ROOM 1019, START 1027, FINISH 1032, PHYSICIAN OUT OF ROOM 1034, OUT OF ROOM 1039, ECG NORMAL SINUS, PATIENT SHIELDED YES, SAFETY STRAP YES, PREP BETADINE Ender ROSENTHAL RN, DRESSING TEGADERM DR. ROMERO RESP: IN ROOM 1014, PHYSICIAN IN ROOM 1019, START 1027, FINISH 1032, PHYSICIAN OUT OF ROOM 1034, OUT OF ROOM 1039, ECG NORMAL SINUS, PATIENT SHIELDED YES, SAFETY STRAP YES, PREP BETADINE Ender ROSENTHAL RN, DRESSING TEGADERM DR. ROMERO COLOR: 1025 1. PINK, 1030 1. PINK, 1037 1. PINK, 1043 1. PINK SKIN: 1025 1. WARM, DRY, 1030 1. WARM, DRY, 1037 1. WARM, DRY, 1043 1. WARM, DRY POSITION: 1025 1. ALERT, ORIENTED, 1030 1. ALERT, ORIENTED, 1037 1. ALERT, ORIENTED, 1043, 1. ALERT, ORIENTED VITALS: 1025 62-16 965 147/87 1030 61-16 95%138/79 1037 62-16 98% 152/84 1043 65-16 97% 136/87 NOTES 1032 PROCEDURE TOLERATED WELL. Ender ROSENTHAL RN DISCHARGE: POST PAIN 4, DRESSING SITE DRY AND INTACT, IV N/A, GAIT STEADY, TEACHING COMPLETED, PATIENT ACKNOWLEDGES UNDERSTANDING YES, PATIENT DISCHARGED AT 1047 Ender ROSENTHAL RN PN WORKMANS' COMP OPINION IN YOUR OPINION, WAS THE INCIDENT THAT THE PATIENT DESCRIBED THE COMPETENT MEDICAL CAUSE OF THIS INJURY/ILLNESS? YES ARE THE PATIENT'S COMPLAINTS CONSISTENT WITH HIS/HER HISTORY OF THE INJURY/ILLNESS? YES IS THE PATIENT'S HISTORY OF THE INJURY/ILLNESS CONSISTENT WITH YOUR OBJECTIVE FINDING? YES WHAT IS THE PERCENTAGE OF TEMPORARY IMPAIRMENT? MODERATE TO MARKED = 66.7% . IS THE PATIENT WORKING? NO . DOCTOR ON SITE: NORMA TURNER MD PRE PROCEDURE DIAGNOSIS LUMBAR DISC DISORDER WITH RADICULOPATHY POST PROCEDURE DIAGNOSIS LUMBAR DISC DISORDER WITH RADICULOPATHY PROCEDURE LUMBAR EPIDURAL STEROID INJECTION UNDER FLUOROSCOPIC GUIDANCE SURGEON DR. NORMA ROMERO AQUATIC PHYSIOTHERAPIST NONE ANESTHESIA LOCAL PRE PROCEDURE NOTE THE PATIENT HAS A HISTORY OF CHRONIC LOW BACK PAIN. I EVALUATED THE PATIENT AND REVIEWED THE CHART. I WENT OVER THE RISKS, ALTERNATIVES, AND BENEFITS ASSOCIATED WITH THIS PROCEDURE. THE PATIENT WOULD LIKE TO PROCEED AND GIVE CONSENT TO PERFORMED THE PROCEDURE. THE PATIENT DENIES UNEXPLAINABLE WEIGHT LOSS, FEVER, CHILLS, OR NEW CHANGES IN URINARY OR BOWEL CONTROL. THE PATIENT IS COVID-19 NEGATIVE DESCRIPTION OF PROCEDURE THE PATIENT WAS BROUGHT TO THE PROCEDURE ROOM AND PLACED IN THE PRONE POSITION. THE LUMBOSACRAL AREA WAS CLEANED WITH BETADINE SOLUTION AND DRAPED ASEPTICALLY. THE PROCEDURE WAS DONE UNDER STERILE CONDITIONS. A TIMEOUT WAS PERFORMED WHERE THE SITE OF THE PROCEDURE WERE CHECKED AND CONFIRMED WITH EVERYONE IN THE ROOM. UNDER FLUOROSCOPIC GUIDANCE, THE TARGET POINT WAS SELECTED AT THE INTERLAMINAR LEVEL OF L4-L5. I CONFIRMED AGAIN WITH EVERYONE IN THE ROOM THE SITE OF THE TARGET AT 1024. LIDOCAINE WAS USED TO NUMB THE SKIN AND THE SUBCUTANEOUS TISSUE BELOW IT. EPIDURAL TUOHY NEEDLE, 17-GAUGE, WAS ADVANCED UNDER FLUOROSCOPIC GUIDANCE AND FOLLOWING PATIENT FEEDBACK UNTIL THE EPIDURAL SPACE WAS REACHED 8 CM DEEP INTO THE SKIN BY THE LOSS OF RESISTANCE TECHNIQUE. ISOVUE-M DYE 30%, 0.25 ML, WAS INJECTED SHOWING ADEQUATE SPREAD OF THE DYE. THEN, A SOLUTION OF 3 ML OF NORMAL SALINE WITH DEPO-MEDROL 80 MG WAS INJECTED SLOWLY FOLLOWING PATIENT FEEDBACK. THE MEDICATIONS WERE VERIFIED WITH THE NURSE. THERE WAS NO EVIDENCE OF BLOOD, PARESTHESIA OR CEREBROSPINAL FLUID DURING THE PROCEDURE. THE PATIENT WAS SENT TO THE RECOVERY ROOM. THE PATIENT WAS MOVING THE EXTREMITIES AND DOING WELL. THERE WERE NO COMPLICATIONS DURING THE PROCEDURE. ESTIMATED BLOOD LOSS WAS LESS THAN 5 ML. FLUOROSCOPY TIME WAS 19 SECONDS POST PROCEDURE NOTE THE PATIENT WILL BE SEEN IN A FOLLOW UP IN THE NEXT FEW WEEKS. I AM LOOKING FOR LONG LASTING RELIEF FOR THE PATIENT WITH THIS INTERVENTION. INSTRUCTIONS WERE GIVEN, QUESTIONS WERE ANSWERED, AND THE PATIENT EXPRESSED UNDERSTANDING AND AGREES WITH THE PLAN. I, MANASA VELASQUEZ, DOCUMENTED THE ABOVE INFORMATION ACTING A SCRIBE FOR DR. ROMERO. I HAVE REVIEWED THE ABOVE DOCUMENT, WRITTEN BY MANASA VELASQUEZ, FRUIT THINNER, AND I VERIFY THAT IT IS ACCURATE PROCEDURE CODES 35199 LUMBAR/SACRAL W/ IMAGING DISPOSITION & COMMUNICATION FOLLOW UP FOLLOW UP WITH SHEARER OPERATOR (REASON: POST LUMBAR EPIDURAL STEROID INJECTION) ELECTRONICALLY SIGNED BY NORMA ROMERO MD, MD ON 11/12/2020 AT 02:20 PM EST DISCLAIMER : THIS IS A VISIT SUMMARY EXTRACTED FROM THE [employer] CHART. IT IS NOT A COPY OF THE [employer] PROGRESS NOTE. VIKY
== END ==
LOC: M PAIN 09:00
PROVIDERS: ATTEND Anesthesiology
DX: M51.16 Intervertebral disc disorders with radiculopathy, lumbar region (principal); E03.9 Hypothyroidism, unspecified; E11.9 Type 2 diabetes mellitus without complications; J45.909 Unspecified asthma, uncomplicated; F17.210 Nicotine dependence, cigarettes, uncomplicated; Z88.1 Allergy status to other antibiotic agents; Z88.6 Allergy status to analgesic agent; Z79.82 Long term (current) use of aspirin; Z79.899 Other long term (current) drug therapy
CPT/HCPCS: 62323; J1030; Q9967

== ENCOUNTER → 2021-01-11 | Outpatient (CLI) | payer OTHER ==
[~2021-01-11] MED LIST changes: -ISOVUE-M 300 61% 15ML VIAL As Ordered ONE; -LIDOCAINE 1% SDV 30ML VIAL As Ordered ONE; -methylPREDNISolone SUSP 40MG/ML 1ML VIAL (DEPO MEDROL) As Ordered ONE
--- NOTE | 2021-01-15 05:50 | ECWPNPC ---
PATIENT NAME: ACOSTA FARRELL : 1955 GENDER: MALE VISIT DATE: 01/11/2021 DISCHARGE DATE: 01/11/21 1126 VISIT LOCKED DATE TIME: PHYSICIAN: STEPHEN SCHULTZ RESOURCE: STEPHEN SCHULTZ REASON FOR APPOINTMENT 1. POST LESI L4-L5 L5-S1 / REVIEW MRI - STEPHEN PATIENT HISTORY OF PRESENT ILLNESS GENERAL: - 65-YEAR-OLD MALE IN FOR POST LUMBAR EPIDURAL STEROID INJECTION FOLLOW-UP. PATIENT FEELS THE PROCEDURE WAS SUCCESSFUL OVERALL RATING HIS PAIN PREPROCEDURE AT A 8-9 OUT OF 10 AND POST PROCEDURE AT 2-3 OUT OF 10. HE FURTHER STATES PROCEDURE CONTINUES TO HELP HIM TODAY EVIDENCED BY DECREASED RADICULAR PAIN. HE DOES ADMIT TO PAIN IN THE LOW BACK REGION. FALL RISK SCREENING: SCREENING : NO FALLS REPORTED IN THE LAST YEAR. PAIN SCREENING: PATIENT HAS A COMPLAINT OF ACUTE OR CHRONIC PAIN :YES LOCATION OF PAIN:LOW BACK INTENSITY OF PAIN (SCALE OF 1 TO 10):6 WHAT DOES YOUR PAIN FEEL LIKE:ACHING, CONTINOUS DURATION:CONTINOUS PAIN IS INCREASED BY:PROLONGED STANDING, OTHERS WALKING PAIN IS DECREASED BY:SITTING, OTHERS SITTING WITH FEET UP, LYING DOWN NURSING NOTE: -. PAIN CENTER INTAKE QUESTIONS: DO YOU HAVE A HISTORY OF MRSA? :NO DO YOU TAKE A BLOOD THINNERS? :NO DO YOU HAVE ANY BLEEDING DISORDERS? :NO ANY NEW NUMBNESS OR WEAKNESS IN YOUR LEGS OR ARMS? :NO ANY PACEMAKER,DEFIBRILLATOR, OR DORSAL COLUMN STIMULATOR? :NO DO YOU HAVE ANY RASHES OR OPEN SORES? :NO ARE YOU ALLERGIC TO IV DYE? :NO ARE YOU DIABETIC? :NO BORDERLINE ANY NEW PROBLEMS WITH YOUR MEDICATIONS? :NO HAVE YOU RECEIVED A VACCINE IN THE PAST 30 DAYS? :NO DO YOU PLAN TO RECEIVE A VACCINE IN THE NEXT 21 DAYS? :YES IF SO WHAT VACCINE AND WHEN? THINKING OF GETTING THE COVID VACCINE DO YOU NEED ANY PRESCRIPTION? :YES TIZANIDINE, BACLOFEN, GABAPENTIN DO YOU TAKE ANY IMMUNOSUPPRESSIVE MEDICATIONS? :NO DO YOU HAVE ANY KIDNEY OR LIVER DISEASE? :YES STAGE 2 KIDNEY DISEASE IS THERE A CHANCE YOU COULD BE ? :NO ARE YOU BREAST FEEDING? :NO CURRENT MEDICATIONS TAKING NARCAN 4 MG/0.1ML LIQUID DIRECTED NASALLY , NOTES: NEVER HAS USED TAKING VITAMIN D3 MAXIMUM STRENGTH 5000 UNIT CAPSULE 2 CAPSULES ORALLY 2 CAPSULES TWICE WEEKLY TAKING ASPIRIN ADULT LOW STRENGTH 81 MG TABLET DELAYED RELEASE 1 TABLET ORALLY ONCE A DAY TAKING FINASTERIDE 5 MG TABLET 1 TABLET ORALLY ONCE A DAY TAKING FOLIC ACID 5 MG CAPSULE 1 CAPSULE ORALLY ONCE A DAY TAKING VENTOLIN HFA AEROSOL SOLUTION 2 PUFFS NEEDED INHALATION EVERY 4 HRS NEEDED TAKING FUROSEMIDE 20 MG TABLET 1 TABLET ORALLY DAILY TAKING AMLODIPINE BESYLATE 5 MG TABLET 1 TABLET ORALLY ONCE A DAY TAKING SIMVASTATIN 40 40MG TABLET ORAL DAILY TAKING LOSARTAN POTASSIUM 50 MG TABLET 1 TABLET ORALLY DAILY TAKING LEVOTHYROXINE SODIUM 150 MCG TABLET 175 DAILY ORALLY ONCE A DAY TAKING LEVOTHYROXINE SODIUM 25 MCG TABLET 1 TABLET IN THE MORNING ON AN EMPTY STOMACH ORALLY ONCE A DAY TAKING HYDROCODONE-ACETAMINOPHEN 10-325 MG TABLET 2 TABLET NEEDED ORALLY EVERY 6 HOURS FOR PAIN (CHRONIC PAIN CODE D) MDD 4 TAKING TIZANIDINE HCL 4 MG TABLET 1.5 TABLET ORALLY FOR SPSTICITY BID (WORKERS COMP) MDD3 TAKING GABAPENTIN 300 MG CAPSULE 1 CAPSULE ORALLY 1 IN AM, 2 AT HS TAKING FENOFIBRATE 50 MG CAPSULE 1 CAPSULE WITH FOOD ORALLY ONCE A DAY TAKING METOPROLOL TARTRATE 25 MG TABLET 1 TABLET WITH FOOD ORALLY ONCE A DAY TAKING BACLOFEN 10 MG TABLET 2 TABS ORALLY (WORKERS COMP) BEFORE BEDTIME NOT-TAKING NALOXONE HCL 0.4 MG/ML SOLUTION CARTRIDGE DIRECTED INJECTION (WORKERS COMP) NEEDED FOR RESPIRATORY DEPRESION, NOTES: NEVER HAS USED NOT-TAKING KEPPRA 500 MG TABLET 1 TABLET ORALLY TWICE A DAY NOT-TAKING HYDRALAZINE HCL 25 MG TABLET 1 TABLET ORALLY BID NOT-TAKING TRAMADOL HCL ER 300 MG TABLET EXTENDED RELEASE 24 HOUR 1 TABLET ORALLY FOR PAIN (WORKERS COMP) ONCE A DAY (CODE D FOR CHRONIC PAIN) NOT-TAKING TRAMADOL HCL 50 MG TABLET 1 TABLET NEEDED ORALLY FOR PAIN EVERY 6 HRS MDD 4, NOTES: PLEASE CALL DR ROMERO BEFORE USING THIS MEDICATION MEDICATION LIST REVIEWED AND RECONCILED WITH THE PATIENT PAST MEDICAL HISTORY HYPERTENSION HYPOTHYROIDISM HX BACK PAIN HYPERLIPIDEMIA DM ( DIET CONTROLLED) ASTHMA (EXERCISE INDUSED) RENAL FAILURE ( CURRENTLY SEEING DR. ROME) ALLERGIES BACTRIM: SHAKES/TREMORS - ALLERGY ALL NSAIDS: RENAL FAILURE - CONTRAINDICATION SOCIAL HISTORY GENERAL: TOBACCO USE ARE YOU A:CURRENT SMOKER CESSATION ENCOURAGED. ARE YOU INTERESTED IN QUITTING?READY TO QUIT COUNSELED THE PATIENT ON TOBACCO USE, CESSATION [id number]/23/2020 HOW MANY CIGARETTES A DAY DO YOU SMOKE?6-10 PATIENT COUNSELED ON THE DANGERS OF TOBACCO USE AND URGED TO QUIT:01/11/2021 SMOKING CESSATION INFORMATION GIVEN09/17/2020 LATEX QUESTIONNAIRE LATEX ALLERGY : HAVE YOU EVER DEVELOPED ANY TYPE OF REACTION AFTER HANDLING LATEX PRODUCTS SUCH RUBBER GLOVES, CONDOMS, DIAPHRAGMS, BALLOONS, SOCKS, OR UNDERWEAR?NO LATEX ALLERGY : HAVE YOU EVER DEVELOPED ANY TYPE OF REACTION DURING OR AFTER DENTAL APPOINTMENT, VAGINAL/RECTAL EXAMINATION, SURGICAL PROCEDURE, OR ANY OTHER EXPOSURE?NO LATEX RISK : HAVE YOU EVER HAD ANY DIFFICULTY BREATHING OR HIVES AFTER EATING OR HANDLING ANY FRUITS, OR VEGETABLES; SUCH KIWI, BANANAS, STONE FRUITS, OR CHESTNUTSNO LATEX RISK : DO YOU HAVE A PREVIOUS PERSONAL HISTORY OF MORE THAN NINE SURGERIES, SPINA BIFIDA, OR REPEATED CATHERIZATIONS? NO LATEX RISK : ARE YOU FREQUENTLY EXPOSED TO LATEX PRODUCTS IN YOUR OCCUPATION?NO DATE ASKED : 01/11/2021 ALCOHOL USE: YES. ALCOHOL SCREENING DID YOU HAVE A DRINK CONTAINING ALCOHOL IN THE PAST YEAR?YES HOW MANY DRINKS DID YOU HAVE ON A TYPICAL DAY WHEN YOU WERE DRINKING IN THE PAST YEAR?1 OR 2 (0 POINTS) HOW OFTEN DID YOU HAVE A DRINK CONTAINING ALCOHOL IN THE PAST YEAR?MONTHLY OR LESS (1 POINT) POINTS1 INTERPRETATIONNEGATIVE RECREATIONAL DRUG USE DRUG USE?NO CAFFEINE CAFFEINE USE?YES HOW OFTEN AND HOW MUCH? 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 DIET: NO ADDED SALT. EXERCISE: WALKS. MARITAL STATUS: .. OTHERS AT HOME: OTHER NON-RELATIVE. - PFS REFERRAL NEEDED?NO CLERGY REFERRAL NEEDED?NO PUBLIC HEALTH REFERRAL NEEDED?NO WAS THE PROVIDER NOTIFIED OF ANY PERTINENT INFO?YES HAS THE PATIENT BEEN EDUCATED REGARDING HIS/HER PLAN OF CARE?YES HAS THE PATIENT BEEN EDUCATED REGARDING PAIN, THE RISK FOR PAIN, THE IMPORTANCE OF EFFECTIVE PAIN MANAGEMENT, AND THE PAIN ASSESSMENT PROCESS?YES ADVANCE DIRECTIVE ADVANCE DIRECTIVE DISCUSSED WITH PATIENT:YES HCP MARLIN FARRELL [phone] REVIEW OF SYSTEMS CONSTITUTIONAL: ANY RECENT FEVER NO . CHILLS NO . WEIGHT CHANGE OF UNKNOWN REASONS NO . GASTROENTEROLOGY: NEW UNEXPLAINABLE CHANGES IN BOWEL CONTROL NO . CONSTIPATION NO . GENITOURINARY: ANY NEW CHANGE IN BLADDER CONTROL? NO . NEUROLOGY: NEW ONSET DIZZINESS OR NEUROLOGICAL CHANGES NOT MENTIONED NO . NEW NUMBNESS OR PAIN PATTERNS NOT MENTIONED AND PERTINENT TO TODAY'S VISIT NO . CARDIOLOGY: NEW CHEST PRESSURE NO . PATIENT DENIES NO . RESPIRATORY: UNEXPLAINABLE COUGH NO . NEW SHORTNESS OF BREATH NO . VITAL SIGNS WT 252 LBS, HT 71 IN, BMI 35.14 INDEX, BP 130/87 MM HG, HR 57 /MIN, RR 20 /MIN, TEMP 96.8 F, OXYGEN SAT % 99%, SAFE IN ENV? (Y/N) YES, NA INITIALS SC 11:00, REVIEWED BY: Hattie PEREZ RN. EXAMINATION GENERAL EXAMINATION: GENERALNO ACUTE DISTRESS, WELL NOURISHED AND HYDRATED. PSYCHAPPROPRIATE MOOD AND AFFECT . LUNGS:CLEAR TO AUSCULTATION BILATERALLY, NO WHEEZES, RHONCHI, RALES. HEART:NO MURMURS, REGULAR RATE AND RHYTHM. ASSESSMENTS OTHER CHRONIC PAIN - G89.29 (PRIMARY) INTERVERTEBRAL DISC DISORDERS WITH RADICULOPATHY, LUMBOSACRAL REGION - M51.17 TREATMENT OTHER CHRONIC PAIN PAIN PROCEDURE LOGDATE OF [id number]/18/2021PROCEDURE:LUMBAR EPIDURAL STEROID INJECTIONAMOUNT OF PRE SEDATENO PRESEDATERESULT:PRE-8-07/05 POST -01/02 CONTINUES TO HELP TODAY NOTES: 65-YEAR-OLD MALE IN FOR POST LUMBAR EPIDURAL STEROID INJECTION FOLLOW-UP. DISCUSSED VERTIFLEX PROCEDURE WITH PATIENT AND HE DOES NOT WISH INFORMATION ON IT AT THIS TIME. INFORMED PATIENT THAT THIS NUTRITION ASSISTANT COULD GIVE PATIENT INFORMATION TO THE VERTIFLEX REP AND HAVE THEM CONTACT PATIENT AND HE WAS AMENABLE TO THIS. WE'LL FOLLOW-UP IN 2 MONTHS. PATIENT HAS EXPRESSED UNDERSTANDING OF AND WAS IN AGREEMENT WITH TREATMENT PLAN. GIVEN TIME TO ASK QUESTIONS AND EXPRESS CONCERNS. PROCEDURE CODES FA211 ESTABILISHED PATIENT [facility] FACILITY CHARGE DISPOSITION & COMMUNICATION FOLLOW UP 2 MONTHS (REASON: LOW BACK PAIN ) ELECTRONICALLY SIGNED BY MARITZA CHOW ON 01/14/2021 AT 10:02 AM EDT DISCLAIMER : THIS IS A VISIT SUMMARY EXTRACTED FROM THE [employer] CHART. IT IS NOT A COPY OF THE [employer] PROGRESS NOTE. VIKY
== END ==
LOC: M PAIN 11:00
PROVIDERS: ATTEND Family Medicine
DX: G89.29 Other chronic pain (principal); M51.17 Intervertebral disc disorders with radiculopathy, lumbosacral region; I10 Essential (primary) hypertension; E03.9 Hypothyroidism, unspecified; E78.5 Hyperlipidemia, unspecified; E11.9 Type 2 diabetes mellitus without complications; J45.909 Unspecified asthma, uncomplicated; Z88.2 Allergy status to sulfonamides; Z88.6 Allergy status to analgesic agent

== ENCOUNTER → 2021-03-12 | Outpatient (CLI) | payer OTHER ==
--- NOTE | 2021-03-14 05:20 | ECWPNPC ---
PATIENT NAME: ACOSTA FARRELL : 1955 GENDER: MALE VISIT DATE: 03/12/2021 DISCHARGE DATE: 03/12/21918 VISIT LOCKED DATE TIME: PHYSICIAN: STEPHEN SCHULTZ RESOURCE: STEPHEN SCHULTZ REASON FOR APPOINTMENT 1. LOW BACK PAIN HISTORY OF PRESENT ILLNESS DEPRESSION SCREENIN-YEAR-OLD MALE IN FOR CHRONIC PAIN FOLLOW-UP. HE RATES HIS PAIN CURRENTLY AT A 6 OUT OF 10 AND DESCRIBES IT ACHING, BURNING, CONTINUOUS, AND SHARP. PATIENT FEELS HIS MEDICATIONS ARE HELPFUL AND DENIES MED SIDE EFFECTS AT THIS TIME. DOI: 12/13/1984. PHQ-2 (2015 EDITION) LITTLE INTEREST OR PLEASURE IN DOING THINGS?NOT AT ALL FEELING DOWN, DEPRESSED, OR HOPELESS?NOT AT ALL TOTAL SCORE0 GENERAL: -. FALL RISK SCREENING: SCREENING : NO FALLS REPORTED IN THE LAST YEAR. PAIN SCREENING: PATIENT HAS A COMPLAINT OF ACUTE OR CHRONIC PAIN :YES LOCATION OF PAIN:LOW BACK INTENSITY OF PAIN (SCALE OF 1 TO 10):6 WHAT DOES YOUR PAIN FEEL LIKE:ACHING, BURNING, CONTINOUS, SHARP DURATION:CONTINOUS, AWAKENS FROM SLEEP PAIN IS INCREASED BY:ACTIVITIES, PROLONGED STANDING PAIN IS DECREASED BY:USE OF PAIN MEDICATIONS, SITTING HEAT NURSING NOTE: -. PAIN CENTER INTAKE QUESTIONS: DO YOU HAVE A HISTORY OF MRSA? :NO DO YOU TAKE A BLOOD THINNERS? :NO DO YOU HAVE ANY BLEEDING DISORDERS? :NO ANY NEW NUMBNESS OR WEAKNESS IN YOUR LEGS OR ARMS? :NO ANY PACEMAKER,DEFIBRILLATOR, OR DORSAL COLUMN STIMULATOR? :NO DO YOU HAVE ANY RASHES OR OPEN SORES? :NO ARE YOU ALLERGIC TO IV DYE? :NO ARE YOU DIABETIC? :NO BORDERLINE ANY NEW PROBLEMS WITH YOUR MEDICATIONS? :NO HAVE YOU RECEIVED A VACCINE IN THE PAST 30 DAYS? :NO DO YOU PLAN TO RECEIVE A VACCINE IN THE NEXT 21 DAYS? :YES IF SO WHAT VACCINE AND WHEN? THINKING OF GETTING THE COVID VACCINE DO YOU NEED ANY PRESCRIPTION? :NO DO YOU TAKE ANY IMMUNOSUPPRESSIVE MEDICATIONS? :NO DO YOU HAVE ANY KIDNEY OR LIVER DISEASE? :YES STAGE 2 KIDNEY DISEASE IS THERE A CHANCE YOU COULD BE ? :NO ARE YOU BREAST FEEDING? :NO CURRENT MEDICATIONS TAKING NARCAN 4 MG/0.1ML LIQUID DIRECTED NASALLY , NOTES: NEVER HAS USED TAKING VITAMIN D3 MAXIMUM STRENGTH 5000 UNIT CAPSULE 2 CAPSULES ORALLY 2 CAPSULES TWICE WEEKLY TAKING ASPIRIN ADULT LOW STRENGTH 81 MG TABLET DELAYED RELEASE 1 TABLET ORALLY ONCE A DAY TAKING FINASTERIDE 5 MG TABLET 1 TABLET ORALLY ONCE A DAY TAKING FOLIC ACID 5 MG CAPSULE 1 CAPSULE ORALLY ONCE A DAY TAKING VENTOLIN HFA AEROSOL SOLUTION 2 PUFFS NEEDED INHALATION EVERY 4 HRS NEEDED TAKING FUROSEMIDE 20 MG TABLET 1 TABLET ORALLY DAILY TAKING AMLODIPINE BESYLATE 5 MG TABLET 1 TABLET ORALLY ONCE A DAY TAKING SIMVASTATIN 40 40MG TABLET ORAL DAILY TAKING LOSARTAN POTASSIUM 25 MG TABLET 1 TABLET ORALLY DAILY TAKING LEVOTHYROXINE SODIUM 150 MCG TABLET 175 DAILY ORALLY ONCE A DAY TAKING LEVOTHYROXINE SODIUM 25 MCG TABLET 1 TABLET IN THE MORNING ON AN EMPTY STOMACH ORALLY ONCE A DAY TAKING HYDROCODONE-ACETAMINOPHEN 10-325 MG TABLET 2 TABLET NEEDED ORALLY EVERY 6 HOURS FOR PAIN (CHRONIC PAIN CODE D) MDD 4 TAKING FENOFIBRATE 50 MG CAPSULE 1 CAPSULE WITH FOOD ORALLY ONCE A DAY TAKING METOPROLOL TARTRATE 25 MG TABLET 1 TABLET WITH FOOD ORALLY ONCE A DAY TAKING TIZANIDINE HCL 4 MG TABLET 1.5 TABLET ORALLY FOR SPSTICITY BID (WORKERS COMP) MDD3 TAKING BACLOFEN 10 MG TABLET 2 TABS ORALLY (WORKERS COMP) BEFORE BEDTIME TAKING GABAPENTIN 300 MG CAPSULE 1 CAPSULE ORALLY 1 IN AM, 2 AT HS NOT-TAKING NALOXONE HCL 0.4 MG/ML SOLUTION CARTRIDGE DIRECTED INJECTION (WORKERS COMP) NEEDED FOR RESPIRATORY DEPRESION, NOTES: NEVER HAS USED NOT-TAKING KEPPRA 500 MG TABLET 1 TABLET ORALLY TWICE A DAY NOT-TAKING HYDRALAZINE HCL 25 MG TABLET 1 TABLET ORALLY BID NOT-TAKING TRAMADOL HCL ER 300 MG TABLET EXTENDED RELEASE 24 HOUR 1 TABLET ORALLY FOR PAIN (WORKERS COMP) ONCE A DAY (CODE D FOR CHRONIC PAIN) NOT-TAKING TRAMADOL HCL 50 MG TABLET 1 TABLET NEEDED ORALLY FOR PAIN EVERY 6 HRS MDD 4, NOTES: PLEASE CALL DR ROMERO BEFORE USING THIS MEDICATION MEDICATION LIST REVIEWED AND RECONCILED WITH THE PATIENT PAST MEDICAL HISTORY HYPERTENSION HYPOTHYROIDISM HX BACK PAIN HYPERLIPIDEMIA DM ( DIET CONTROLLED) ASTHMA (EXERCISE INDUSED) RENAL FAILURE ( CURRENTLY SEEING DR. ROME) ALLERGIES BACTRIM: SHAKES/TREMORS - ALLERGY ALL NSAIDS: RENAL FAILURE - CONTRAINDICATION SOCIAL HISTORY GENERAL: TOBACCO USE ARE YOU A:CURRENT SMOKER CESSATION ENCOURAGED. ARE YOU INTERESTED IN QUITTING?READY TO QUIT CUTTING BACK PREVIOUS QUIT ATTEMPTS?YES, WITHIN THE LAST 6 MONTHS. COUNSELED THE PATIENT ON TOBACCO USE, CESSATION [id number]/18/2021 HOW MANY CIGARETTES A DAY DO YOU SMOKE?6-10 PATIENT COUNSELED ON THE DANGERS OF TOBACCO USE AND URGED TO QUIT:01/11/2021 SMOKING CESSATION INFORMATION GIVEN09/17/2020 LATEX QUESTIONNAIRE LATEX ALLERGY : HAVE YOU EVER DEVELOPED ANY TYPE OF REACTION AFTER HANDLING LATEX PRODUCTS SUCH RUBBER GLOVES, CONDOMS, DIAPHRAGMS, BALLOONS, SOCKS, OR UNDERWEAR?NO LATEX ALLERGY : HAVE YOU EVER DEVELOPED ANY TYPE OF REACTION DURING OR AFTER DENTAL APPOINTMENT, VAGINAL/RECTAL EXAMINATION, SURGICAL PROCEDURE, OR ANY OTHER EXPOSURE?NO DATE ASKED : 01/11/2021 LATEX RISK : HAVE YOU EVER HAD ANY DIFFICULTY BREATHING OR HIVES AFTER EATING OR HANDLING ANY FRUITS, OR VEGETABLES; SUCH KIWI, BANANAS, STONE FRUITS, OR CHESTNUTSNO LATEX RISK : DO YOU HAVE A PREVIOUS PERSONAL HISTORY OF MORE THAN NINE SURGERIES, SPINA BIFIDA, OR REPEATED CATHERIZATIONS? NO LATEX RISK : ARE YOU FREQUENTLY EXPOSED TO LATEX PRODUCTS IN YOUR OCCUPATION?NO ALCOHOL USE: YES. OCCASIONAL. 6 PACK OF BEERS A YEAR.. ALCOHOL SCREENING DID YOU HAVE A DRINK CONTAINING ALCOHOL IN THE PAST YEAR?YES HOW MANY DRINKS DID YOU HAVE ON A TYPICAL DAY WHEN YOU WERE DRINKING IN THE PAST YEAR?1 OR 2 (0 POINTS) HOW OFTEN DID YOU HAVE A DRINK CONTAINING ALCOHOL IN THE PAST YEAR?MONTHLY OR LESS (1 POINT) POINTS1 INTERPRETATIONNEGATIVE RECREATIONAL DRUG USE DRUG USE?NO CAFFEINE CAFFEINE USE?YES HOW OFTEN AND HOW MUCH? 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 DIET: NO ADDED SALT. EXERCISE: WALKS. MARITAL STATUS: .. OTHERS AT HOME: OTHER NON-RELATIVE. - PFS REFERRAL NEEDED?NO CLERGY REFERRAL NEEDED?NO PUBLIC HEALTH REFERRAL NEEDED?NO WAS THE PROVIDER NOTIFIED OF ANY PERTINENT INFO?YES HAS THE PATIENT BEEN EDUCATED REGARDING HIS/HER PLAN OF CARE?YES HAS THE PATIENT BEEN EDUCATED REGARDING PAIN, THE RISK FOR PAIN, THE IMPORTANCE OF EFFECTIVE PAIN MANAGEMENT, AND THE PAIN ASSESSMENT PROCESS?YES ADVANCE DIRECTIVE ADVANCE DIRECTIVE DISCUSSED WITH PATIENT:YES HCP MARLIN FARRELL [phone] REVIEW OF SYSTEMS CONSTITUTIONAL: ANY RECENT FEVER NO . CHILLS NO . WEIGHT CHANGE OF UNKNOWN REASONS NO . GASTROENTEROLOGY: NEW UNEXPLAINABLE CHANGES IN BOWEL CONTROL NO . CONSTIPATION NO . GENITOURINARY: ANY NEW CHANGE IN BLADDER CONTROL? NO . NEUROLOGY: NEW ONSET DIZZINESS OR NEUROLOGICAL CHANGES NOT MENTIONED NO . NEW NUMBNESS OR PAIN PATTERNS NOT MENTIONED AND PERTINENT TO TODAY'S VISIT NO . CARDIOLOGY: NEW CHEST PRESSURE NO . PATIENT DENIES NO . RESPIRATORY: UNEXPLAINABLE COUGH NO . NEW SHORTNESS OF BREATH NO . VITAL SIGNS WT 255.2 LBS, HT 71 IN, BMI 35.59 INDEX, BP 164/89 MM HG, REPEAT BP 132/82 MANUAL BP, HR 58 /MIN, RR 18 /MIN, TEMP 96.8 F, OXYGEN SAT % 98%, SAFE IN ENV? (Y/N) YES, NA INITIALS , REVIEWED BY: MANUAL BP RETAKEN. MILTON NORTON MA. EXAMINATION GENERAL EXAMINATION: GENERALNO ACUTE DISTRESS, WELL NOURISHED AND HYDRATED. PSYCHAPPROPRIATE MOOD AND AFFECT . LUNGS:CLEAR TO AUSCULTATION BILATERALLY, NO WHEEZES, RHONCHI, RALES. HEART:NO MURMURS, REGULAR RATE AND RHYTHM. ASSESSMENTS INTERVERTEBRAL DISC DISORDERS WITH RADICULOPATHY, LUMBAR REGION - M51.16 (PRIMARY), RISK: (NULL) CHRONIC PRESCRIPTION OPIATE USE - Z79.899, RISK: (NULL) TREATMENT INTERVERTEBRAL DISC DISORDERS WITH RADICULOPATHY, LUMBAR REGION LAB: URINE TEST GROUP MILTON NORTON 03/12/2021 9:23:47 AM > LAST DOSE: HYDROCODONE 03/07/2021; TIZANIDINE 03/11/2021 AT 12 PM; GABAPENTIN 03/11/2021 AT 9PM; BACLOFEN 03/11/2021 AT 9PM NOTES: 65-YEAR-OLD MALE IN FOR CHRONIC PAIN FOLLOW-UP. GIVEN PRESENTING SYMPTOMS RECOMMENDED CONTINUATION OF CURRENT MEDICATION REGIMEN WITH FOLLOW-UP IN 3 MONTHS. PATIENT HAS EXPRESSED UNDERSTANDING OF AND WAS IN AGREEMENT WITH TREATMENT PLAN. GIVEN TIME TO ASK QUESTIONS AND EXPRESS CONCERNS. ISTOP REGISTRY REVIEWED AND DEMONSTRATES COMPLLIANCE. (REF # [id number] ) BRINGS IN MEDICATIONS WHICH IS APPROPRIATE FOR WHAT WAS DISPENSED. RECENT URINE TOXICOLOGY REVIEWED. NO UNAUTHORIZED MEDICATIONS. NO ILLICIT SUBSTANCES AND PRESCRIBED MEDICATIONS WERE PRESENT. CHRONIC PRESCRIPTION OPIATE USE REFILL HYDROCODONE-ACETAMINOPHEN TABLET, 10-325 MG, 2 TABLET NEEDED, ORALLY, EVERY 6 HOURS FOR PAIN (CHRONIC PAIN CODE D) MDD 4, 30 DAY(S), REFILLS 0 PROCEDURES PN WORKMANS' COMP OPINION IN YOUR OPINION, WAS THE INCIDENT THAT THE PATIENT DESCRIBED THE COMPETENT MEDICAL CAUSE OF THIS INJURY/ILLNESS? YES ARE THE PATIENT'S COMPLAINTS CONSISTENT WITH HIS/HER HISTORY OF THE INJURY/ILLNESS? YES IS THE PATIENT'S HISTORY OF THE INJURY/ILLNESS CONSISTENT WITH YOUR OBJECTIVE FINDING? YES WHAT IS THE PERCENTAGE OF TEMPORARY IMPAIRMENT? MODERATE TO MARKED = 66.7% IS THE PATIENT WORKING? NO DOCTOR ON SITE: NORMA TURNER MD PROCEDURE CODES FA211 ESTABILISHED PATIENT [facility] CHARGE DISPOSITION & COMMUNICATION FOLLOW UP 3 MONTHS (REASON: LOW BACK PAIN ) ELECTRONICALLY SIGNED BY MARITZA CHOW ON 03/13/2021 AT 08:33 AM EDT DISCLAIMER : THIS IS A VISIT SUMMARY EXTRACTED FROM THE [employer] CHART. IT IS NOT A COPY OF THE [employer] PROGRESS NOTE. VIKY
== END ==
LOC: M PAIN 09:00
PROVIDERS: ATTEND Family Medicine
DX: M51.16 Intervertebral disc disorders with radiculopathy, lumbar region (principal); G89.29 Other chronic pain; E03.9 Hypothyroidism, unspecified; F17.210 Nicotine dependence, cigarettes, uncomplicated; Z88.1 Allergy status to other antibiotic agents; Z88.6 Allergy status to analgesic agent; Z79.82 Long term (current) use of aspirin; Z79.899 Other long term (current) drug therapy

== ENCOUNTER → 2021-04-22 | Outpatient (CLI) | payer MEDICARE ==
--- NOTE | 2021-04-22 09:07 | REP ---
INDICATION: NICTOINE DEPEND COMPARISON: None. TECHNIQUE: Axial noncontrast images from the thoracic inlet to the upper abdomen using low-dose lung screening technique (LDCT). FINDINGS: Very few small 1-2 mm densities are appreciated along with calcified granuloma in the right upper lobe and calcified mediastinal/right hilar lymph nodes consistent with prior granulomatous disease. No acute consolidation, significant nodule or mass lesion otherwise appreciated. No effusion. No pneumothorax. Tracheobronchial tree is patent. IMPRESSION: Lung-RADS category 2. Presumed benign changes related to prior granulomatous disease. Management recommendations include annual low-dose CT surveillance. <Electronically signed by Jasper Rendon > 04/22/21 0972
== END ==
LOC: M RAD 08:34
PROVIDERS: ATTEND Physician Assistant
DX: Z12.2 Encounter for screening for malignant neoplasm of respiratory organs (principal); F17.218 Nicotine dependence, cigarettes, with other nicotine-induced disorders; J84.10 Pulmonary fibrosis, unspecified

== ENCOUNTER → 2021-06-13 | Outpatient (CLI) | payer OTHER | LOC: M PAIN 09:00 | PROVIDERS: ATTEND Anesthesiology | DX: M47.816 Spondylosis without myelopathy or radiculopathy, lumbar region (principal); G89.29 Other chronic pain; E03.9 Hypothyroidism, unspecified; J45.909 Unspecified asthma, uncomplicated; Z87.891 Personal history of nicotine dependence; Z88.1 Allergy status to other antibiotic agents; Z88.6 Allergy status to analgesic agent; Z79.82 Long term (current) use of aspirin; Z79.84 Long term (current) use of oral hypoglycemic drugs; Z79.899 Other long term (current) drug therapy ==

== ENCOUNTER → 2021-07-04 | Outpatient (CLI) | payer OTHER | LOC: M LABSMTC 09:13 | PROVIDERS: ATTEND Anesthesiology | DX: Z01.812 Encounter for preprocedural laboratory examination (principal); Z20.822 Contact with and (suspected) exposure to COVID-19 ==

== ENCOUNTER → 2021-07-09 | Outpatient (CLI) | payer OTHER ==
[~2021-07-09] MED LIST changes: +BUPIVACAINE HCL 0.25% 30ML VIAL As Ordered ONE; +ISOVUE-M 300 61% 15ML VIAL As Ordered ONE; +LIDOCAINE 1% SDV 30ML VIAL As Ordered ONE
--- NOTE | 2021-07-09 11:24 | REP ---
INDICATION: BILATERAL DIAGNOSTIC LUMBAR FACET BLOCK #1 L4-L5, L5-S1. COMPARISON: None. TECHNIQUE: Intraoperative fluoroscopic imaging using portable C-arm technique. FINDINGS: Catheters and contrast overlie multiple bilateral lumbar facet joints. Total fluoroscopic time 84 seconds. IMPRESSION: Findings consistent with bilateral lumbar facet block. <Electronically signed by Jasper Rendon > 07/09/21 1600
== END ==
LOC: M PAIN 10:00
PROVIDERS: ATTEND Anesthesiology
DX: M47.816 Spondylosis without myelopathy or radiculopathy, lumbar region (principal); M47.817 Spondylosis without myelopathy or radiculopathy, lumbosacral region; E03.9 Hypothyroidism, unspecified; I12.9 Hypertensive chronic kidney disease with stage 1 through stage 4 chronic kidney disease, or unspecified chronic kidney disease; E78.5 Hyperlipidemia, unspecified; R73.03 Prediabetes; J45.909 Unspecified asthma, uncomplicated; I25.2 Old myocardial infarction; N18.2 Chronic kidney disease, stage 2 (mild); Z79.891 Long term (current) use of opiate analgesic; Z79.899 Other long term (current) drug therapy; Z87.891 Personal history of nicotine dependence; Z88.2 Allergy status to sulfonamides; Z88.6 Allergy status to analgesic agent
CPT/HCPCS: 64493; 64494; Q9967

== ENCOUNTER → 2021-07-15 | Outpatient (CLI) | payer MEDICARE ==
[~2021-07-15] MED LIST changes: -BUPIVACAINE HCL 0.25% 30ML VIAL As Ordered ONE; -ISOVUE-M 300 61% 15ML VIAL As Ordered ONE; -LIDOCAINE 1% SDV 30ML VIAL As Ordered ONE
== END ==
LOC: M RAD 16:03
PROVIDERS: ATTEND Family Medicine
DX: I70.222 Atherosclerosis of native arteries of extremities with rest pain, left leg (principal); Z53.9 Procedure and treatment not carried out, unspecified reason

== ENCOUNTER → 2021-07-20 | Outpatient (CLI) | payer MEDICARE ==
[2021-07-20 14:46] LABS: CREATININE FOR GFR 1.53 MG/DL (0.70-1.30); GLOMERULAR FILTRATION RATE 48.7 (>49)
== END ==
LOC: M LAB 13:26
PROVIDERS: ATTEND Family Medicine
DX: N18.2 Chronic kidney disease, stage 2 (mild) (principal)

== ENCOUNTER → 2021-07-25 | Outpatient (CLI) | payer MEDICARE ==
[~2021-07-25] MED LIST changes: +PROHANCE 279.3MG/ML 15ML VIAL As Ordered ONE; +PROHANCE 279.3MG/ML 5ML VIAL As Ordered ONE
--- NOTE | 2021-07-25 11:49 | REP ---
INDICATION: ABN DARRYL/DOPPLER VIMAL LEG PAIN W/EXERTION. Rest pain left lower extremity. Abnormal Doppler DARRYL. COMPARISON: None. TECHNIQUE: Pre and postcontrast abdominopelvic and lower extremity MR angiography is acquired. Maximum intensity projection images and source images are reviewed. The gadolinium enhancement dose is 17 mL of intravenous ProHance. FINDINGS: The suprarenal abdominal aorta is normal in caliber. The infrarenal abdominal aorta is slightly irregular due to atherosclerotic plaquing but no aortic stenosis is seen. The abdominal aorta is slightly tortuous. The common iliac and external iliac arteries are tortuous bilaterally but widely patent on both sides. The celiac axis SMA and ALLISON are patent. Singular nonstenotic renal arteries are observed bilaterally. The right common femoral, superficial femoral and profundal femoral arteries are patent. There is mild ectasia of the distal SFA on the right with minimal plaquing in the region of the adductor canal. The right popliteal artery is widely patent. There are 2 calf vessels which demonstrate intact flow to the distal calf on the right. The anterior and posterior tibial artery are patent across the ankle on the right. On the left, the common femoral and profundal femoral are patent. There is an abrupt occlusion of the distal SFA just above an aneurysmal segment of distal SFA and popliteal. The popliteal artery is reconstituted via geniculate collaterals. The caliber of the occluded segment of the distal superficial femoral artery is 1.8 cm. The left popliteal artery and calf trifurcation are patent. There is 2 vessel calf runoff across the ankle. The peroneal artery is seen to the distal calf. There appear to be bilateral renal cortical cysts. 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 There is a smaller aneurysmal segment in the distal SFA on the right without stenosis or occlusion. The iliacs are tortuous bilaterally but widely patent. <Electronically signed by Chun Andrew > 07/25/21 0195
== END ==
LOC: M RAD 08:53
PROVIDERS: ATTEND Family Medicine
DX: I70.222 Atherosclerosis of native arteries of extremities with rest pain, left leg (principal); I72.4 Aneurysm of artery of lower extremity
CPT/HCPCS: A9576; C8914

== ENCOUNTER → 2021-07-31 | Outpatient (CLI) | payer OTHER ==
[~2021-07-31] MED LIST changes: -PROHANCE 279.3MG/ML 15ML VIAL As Ordered ONE; -PROHANCE 279.3MG/ML 5ML VIAL As Ordered ONE
== END ==
LOC: M PAIN 09:30
PROVIDERS: ATTEND Anesthesiology
DX: G89.29 Other chronic pain (principal); M47.816 Spondylosis without myelopathy or radiculopathy, lumbar region; E11.9 Type 2 diabetes mellitus without complications; E03.9 Hypothyroidism, unspecified; J45.909 Unspecified asthma, uncomplicated; I25.2 Old myocardial infarction; F17.200 Nicotine dependence, unspecified, uncomplicated; Z88.1 Allergy status to other antibiotic agents; Z88.6 Allergy status to analgesic agent; Z79.82 Long term (current) use of aspirin; Z79.84 Long term (current) use of oral hypoglycemic drugs; Z79.899 Other long term (current) drug therapy

== ENCOUNTER → 2021-10-25 | Outpatient (CLI) | payer MEDICARE, OTHER ==
[~2021-10-25] MED LIST changes: +EZET10TA21 PO; +FENO160T10 PO; +FURO40TA2 PO; +GABA-282 PO; +LOSA25TA14 PO; +METO1TAB32 PO; +SIMV40TA20 PO; +TIZA4TAB4 PO
== END ==
LOC: M LABSMTC 10:04
PROVIDERS: ATTEND Anesthesiology
DX: Z01.812 Encounter for preprocedural laboratory examination (principal); Z20.822 Contact with and (suspected) exposure to COVID-19

== ENCOUNTER 2021-10-30 08:54 | Day surgery (SDC) | payer MEDICARE ==
[~2021-10-30] VITALS: Ht 180.3 cm; Wt 112.0 kg
[~2021-10-30 08:54] MED LIST changes: +NS 1,000 ML IV ONE
[2021-10-30] MEDS ORDERED: propofoL 200 MG/20 ML VIAL As Ordered ONE (10:28)
[2021-10-30] MEDS ORDERED: LIDOCAINE 2% 100MG/5ML SDV (FOR ANES.) As Ordered ONE (10:28)
[2021-10-30 11:36] VITALS: BP 130/79
== END 2021-10-30 11:39 | disposition home or self-care (01) ==
LOC: M OPP 08:54
PROVIDERS: ATTEND Internal Medicine Gastroenterology
DX: K63.5 Polyp of colon (principal); K64.0 First degree hemorrhoids; Z86.010 Personal history of colon polyps; K57.30 Diverticulosis of large intestine without perforation or abscess without bleeding; I10 Essential (primary) hypertension; E78.5 Hyperlipidemia, unspecified; E03.9 Hypothyroidism, unspecified; J45.909 Unspecified asthma, uncomplicated; Z88.6 Allergy status to analgesic agent; Z88.8 Allergy status to other drugs, medicaments and biological substances; Z79.899 Other long term (current) drug therapy

== ENCOUNTER → 2021-11-27 | Outpatient (CLI) | payer OTHER ==
[~2021-11-27] MED LIST changes: +LOSA25TA13 PO; -LOSA25TA14 PO; -NS 1,000 ML IV ONE; +TIZA10TA PO; -TIZA4TAB4 PO
== END ==
LOC: M PAIN 09:45
PROVIDERS: ATTEND Nurse Practitioner Family
DX: M47.816 Spondylosis without myelopathy or radiculopathy, lumbar region (principal); G89.29 Other chronic pain; E03.9 Hypothyroidism, unspecified; J45.909 Unspecified asthma, uncomplicated; I25.2 Old myocardial infarction; F17.210 Nicotine dependence, cigarettes, uncomplicated; Z88.1 Allergy status to other antibiotic agents; Z88.6 Allergy status to analgesic agent; Z79.82 Long term (current) use of aspirin; Z79.899 Other long term (current) drug therapy

== ENCOUNTER → 2022-03-25 | Outpatient (CLI) | payer OTHER ==
[~2022-03-25] MED LIST changes: +ADVA45AE INH; +AMLO1TAB24 PO; +HYDR-3719 PO; +NARC1SPR
== END ==
LOC: M LABSMTC 09:03
PROVIDERS: ATTEND Anesthesiology
DX: Z20.822 Contact with and (suspected) exposure to COVID-19 (principal)

== ENCOUNTER → 2022-03-28 | Outpatient (CLI) | payer OTHER ==
[~2022-03-28] MED LIST changes: +BUPIVACAINE HCL 0.25% 30ML VIAL As Ordered ONE; +ISOVUE-M 300 61% 15ML VIAL As Ordered ONE; +LIDOCAINE 1% SDV 30ML VIAL As Ordered ONE
[2022-03-28 14:19] VITALS: BP 166/85
== END ==
LOC: M IRPRO 12:38
PROVIDERS: ATTEND Anesthesiology
DX: M47.816 Spondylosis without myelopathy or radiculopathy, lumbar region (principal); M47.817 Spondylosis without myelopathy or radiculopathy, lumbosacral region; G89.29 Other chronic pain; J45.909 Unspecified asthma, uncomplicated; Z88.2 Allergy status to sulfonamides; Z88.6 Allergy status to analgesic agent; Z88.8 Allergy status to other drugs, medicaments and biological substances
CPT/HCPCS: 64493; 64494; Q9967

== ENCOUNTER → 2022-05-01 | Outpatient (CLI) | payer MEDICARE ==
[~2022-05-01] MED LIST changes: -BUPIVACAINE HCL 0.25% 30ML VIAL As Ordered ONE; -ISOVUE-M 300 61% 15ML VIAL As Ordered ONE; -LIDOCAINE 1% SDV 30ML VIAL As Ordered ONE
== END ==
LOC: M RAD 09:25
PROVIDERS: ATTEND Physician Assistant
DX: R91.1 Solitary pulmonary nodule (principal); Z87.891 Personal history of nicotine dependence; Z12.2 Encounter for screening for malignant neoplasm of respiratory organs

== ENCOUNTER → 2022-05-23 | Outpatient (CLI) | payer OTHER | LOC: M PAIN 11:30 | PROVIDERS: ATTEND Anesthesiology | DX: M47.816 Spondylosis without myelopathy or radiculopathy, lumbar region (principal); G89.29 Other chronic pain; E11.9 Type 2 diabetes mellitus without complications; E03.9 Hypothyroidism, unspecified; J45.909 Unspecified asthma, uncomplicated; I25.2 Old myocardial infarction; F17.210 Nicotine dependence, cigarettes, uncomplicated; Z88.1 Allergy status to other antibiotic agents; Z88.6 Allergy status to analgesic agent; Z79.82 Long term (current) use of aspirin; Z79.84 Long term (current) use of oral hypoglycemic drugs; Z79.899 Other long term (current) drug therapy ==

== ENCOUNTER → 2022-07-18 | Outpatient (CLI) | payer OTHER | LOC: M PAIN 09:00 | PROVIDERS: ATTEND Anesthesiology | DX: M47.816 Spondylosis without myelopathy or radiculopathy, lumbar region (principal); G89.29 Other chronic pain; E11.9 Type 2 diabetes mellitus without complications; I10 Essential (primary) hypertension; E03.9 Hypothyroidism, unspecified; J45.909 Unspecified asthma, uncomplicated; I25.2 Old myocardial infarction; F17.210 Nicotine dependence, cigarettes, uncomplicated; Z88.1 Allergy status to other antibiotic agents; Z88.6 Allergy status to analgesic agent; Z79.82 Long term (current) use of aspirin; Z79.890 Hormone replacement therapy; Z79.899 Other long term (current) drug therapy ==

== ENCOUNTER → 2022-09-29 | Outpatient (CLI) | payer OTHER | LOC: M PAIN 09:30 | PROVIDERS: ATTEND Nurse Practitioner Family | DX: M47.816 Spondylosis without myelopathy or radiculopathy, lumbar region (principal); G89.29 Other chronic pain; E11.9 Type 2 diabetes mellitus without complications; I10 Essential (primary) hypertension; E03.9 Hypothyroidism, unspecified; J45.909 Unspecified asthma, uncomplicated; I25.2 Old myocardial infarction; F17.210 Nicotine dependence, cigarettes, uncomplicated; Z88.1 Allergy status to other antibiotic agents; Z88.6 Allergy status to analgesic agent; Z79.82 Long term (current) use of aspirin; Z79.890 Hormone replacement therapy; Z79.899 Other long term (current) drug therapy ==

== ENCOUNTER → 2022-12-25 | Outpatient (CLI) | payer OTHER | LOC: M PAIN 09:30 | PROVIDERS: ATTEND Nurse Practitioner Family | DX: M47.816 Spondylosis without myelopathy or radiculopathy, lumbar region (principal); G89.29 Other chronic pain; I10 Essential (primary) hypertension; E03.9 Hypothyroidism, unspecified; J45.909 Unspecified asthma, uncomplicated; I25.2 Old myocardial infarction; F17.210 Nicotine dependence, cigarettes, uncomplicated; Z88.1 Allergy status to other antibiotic agents; Z88.6 Allergy status to analgesic agent; Z79.890 Hormone replacement therapy; Z79.899 Other long term (current) drug therapy ==

== ENCOUNTER → 2022-12-31 | Outpatient (REF) | payer OTHER ==
[2022-12-31 18:28] LABS: POTASSIUM SERUM 3.8 MMOL/L (3.5-5.1)
== END ==
LOC: M LAB REF 17:15
PROVIDERS: ATTEND Internal Medicine Nephrology
DX: N18.31 Chronic kidney disease, stage 3a (principal)

== ENCOUNTER → 2023-01-26 | Outpatient (CLI) | payer OTHER | LOC: M PAIN 09:15 | PROVIDERS: ATTEND Nurse Practitioner Family | DX: M47.816 Spondylosis without myelopathy or radiculopathy, lumbar region (principal); G89.29 Other chronic pain; E11.9 Type 2 diabetes mellitus without complications; I10 Essential (primary) hypertension; E03.9 Hypothyroidism, unspecified; J45.909 Unspecified asthma, uncomplicated; I25.2 Old myocardial infarction; F17.210 Nicotine dependence, cigarettes, uncomplicated; Z88.1 Allergy status to other antibiotic agents; Z88.6 Allergy status to analgesic agent; Z79.890 Hormone replacement therapy; Z79.899 Other long term (current) drug therapy ==

== ENCOUNTER → 2023-04-27 | Outpatient (CLI) | payer OTHER ==
[~2023-04-27] MED LIST changes: +FINA-48 PO; -PROS5TAB PO
== END ==
LOC: M PAIN 08:45
PROVIDERS: ATTEND Nurse Practitioner Family
DX: M47.816 Spondylosis without myelopathy or radiculopathy, lumbar region (principal); G89.29 Other chronic pain; I10 Essential (primary) hypertension; E03.9 Hypothyroidism, unspecified; J45.909 Unspecified asthma, uncomplicated; I25.2 Old myocardial infarction; Z88.1 Allergy status to other antibiotic agents; Z88.6 Allergy status to analgesic agent; Z79.890 Hormone replacement therapy; Z79.899 Other long term (current) drug therapy

== ENCOUNTER → 2023-06-02 | Outpatient (CLI) | payer MEDICARE | LOC: M RAD 16:35 | PROVIDERS: ATTEND Physician Assistant | DX: Z12.2 Encounter for screening for malignant neoplasm of respiratory organs (principal); F17.218 Nicotine dependence, cigarettes, with other nicotine-induced disorders; R91.8 Other nonspecific abnormal finding of lung field ==

== ENCOUNTER → 2023-07-20 | Outpatient (CLI) | payer OTHER | LOC: M PAIN 08:45 | PROVIDERS: ATTEND Nurse Practitioner Family | DX: M47.816 Spondylosis without myelopathy or radiculopathy, lumbar region (principal); G89.29 Other chronic pain; Z87.891 Personal history of nicotine dependence; Z88.1 Allergy status to other antibiotic agents; Z88.6 Allergy status to analgesic agent; Z79.899 Other long term (current) drug therapy ==

== ENCOUNTER → 2023-10-02 | Outpatient (CLI) | payer OTHER | LOC: M PAIN 14:30 | PROVIDERS: ATTEND Nurse Practitioner Family | DX: M47.816 Spondylosis without myelopathy or radiculopathy, lumbar region (principal); Z79.891 Long term (current) use of opiate analgesic; G89.29 Other chronic pain; I10 Essential (primary) hypertension; E03.9 Hypothyroidism, unspecified; E78.5 Hyperlipidemia, unspecified; R73.03 Prediabetes; J45.909 Unspecified asthma, uncomplicated; Z87.891 Personal history of nicotine dependence; Z79.890 Hormone replacement therapy; Z79.899 Other long term (current) drug therapy; Z88.2 Allergy status to sulfonamides; Z88.6 Allergy status to analgesic agent ==

== ENCOUNTER → 2023-12-28 | Outpatient (CLI) | payer OTHER ==
[~2023-12-28] MED LIST changes: -HYDR50TA PO; +HYDR50TA47 PO
== END ==
LOC: M PAIN 11:30
PROVIDERS: ATTEND Nurse Practitioner Family
DX: M47.816 Spondylosis without myelopathy or radiculopathy, lumbar region (principal); Z79.891 Long term (current) use of opiate analgesic; Z88.2 Allergy status to sulfonamides; Z88.6 Allergy status to analgesic agent; Z87.891 Personal history of nicotine dependence

== ENCOUNTER → 2024-03-28 | Outpatient (CLI) | payer OTHER | LOC: M PAIN 09:15 | PROVIDERS: ATTEND Nurse Practitioner Family | DX: M47.816 Spondylosis without myelopathy or radiculopathy, lumbar region (principal); Z79.891 Long term (current) use of opiate analgesic; I10 Essential (primary) hypertension; E03.9 Hypothyroidism, unspecified; E78.5 Hyperlipidemia, unspecified; R73.03 Prediabetes; J45.909 Unspecified asthma, uncomplicated; Z87.891 Personal history of nicotine dependence; Z79.890 Hormone replacement therapy; Z79.899 Other long term (current) drug therapy; Z88.2 Allergy status to sulfonamides; Z88.6 Allergy status to analgesic agent ==

== ENCOUNTER → 2024-06-30 | Outpatient (CLI) | payer OTHER | LOC: M PAIN 09:00 | PROVIDERS: ATTEND Nurse Practitioner Family | DX: M47.816 Spondylosis without myelopathy or radiculopathy, lumbar region (principal); Z79.891 Long term (current) use of opiate analgesic; G89.29 Other chronic pain; I10 Essential (primary) hypertension; E03.9 Hypothyroidism, unspecified; E78.5 Hyperlipidemia, unspecified; R73.03 Prediabetes; J45.909 Unspecified asthma, uncomplicated; Z87.891 Personal history of nicotine dependence; Z79.899 Other long term (current) drug therapy; Z79.890 Hormone replacement therapy; Z79.82 Long term (current) use of aspirin; Z88.2 Allergy status to sulfonamides; Z88.6 Allergy status to analgesic agent ==

== ENCOUNTER → 2024-09-27 | Outpatient (CLI) | payer OTHER ==
[~2024-09-27] MED LIST changes: +GABA-1172 PO; -GABA-282 PO
== END ==
LOC: M PAIN 09:00
PROVIDERS: ATTEND Nurse Practitioner Family
DX: M47.816 Spondylosis without myelopathy or radiculopathy, lumbar region (principal); Z79.891 Long term (current) use of opiate analgesic; G89.29 Other chronic pain; M54.50 Low back pain, unspecified; I10 Essential (primary) hypertension; E03.9 Hypothyroidism, unspecified; E78.5 Hyperlipidemia, unspecified; R73.03 Prediabetes; J45.909 Unspecified asthma, uncomplicated; Z87.891 Personal history of nicotine dependence; Z79.890 Hormone replacement therapy; Z79.82 Long term (current) use of aspirin; Z79.899 Other long term (current) drug therapy; Z88.2 Allergy status to sulfonamides; Z88.6 Allergy status to analgesic agent

== ENCOUNTER 2024-11-02 06:55 | Day surgery (SDC) | payer MEDICARE ==
[~2024-11-02] VITALS: Ht 180.3 cm; Wt 105.1 kg
[~2024-11-02 06:55] MED LIST changes: +ASPI81TA26 PO; +D-3-50003 PO; +POTA-136 PO; +RANO500T2 PO; +ROSU40TA81 PO; +SYNT100T PO; +SYNT88TA2 PO; +VALS1TAB66 PO; +VENTAER INH
[2024-11-02] MEDS: LR 1,000 ML IV SCH (07:57)
[2024-11-02] MEDS: LIDOCAINE PRES-FREE 2% 10ML AMP NEB ONE (08:07)
[2024-11-02] MEDS: ALBUTEROL SULFATE 2.5MG/0.5ML INH NEB SOLN NEB ONE (08:07)
[2024-11-02] MEDS ORDERED: propofoL 200 MG/20 ML VIAL As Ordered ONE (08:48)
[2024-11-02] MEDS ORDERED: MIDAZOLAM INJ 2MG/2ML VIAL As Ordered ONE (08:48)
[2024-11-02] MEDS ORDERED: fentaNYL 100 MCG/2 ML INJECTION As Ordered ONE (08:48)
[2024-11-02] MEDS ORDERED: ROCURONIUM BROMIDE 50MG/5ML VIAL As Ordered ONE (08:48)
[2024-11-02] MEDS ORDERED: LIDOCAINE 2% 100MG/5ML SDV (FOR ANES.) As Ordered ONE (08:48)
[2024-11-02] MEDS ORDERED: ONDANSETRON 4MG 2ML VIAL As Ordered ONE (08:48)
[2024-11-02] MEDS: CETACAINE SPRAY 5GM As Ordered ONE (08:50)
[2024-11-02] MEDS: EPINEPHrine 1MG/10ML SYRINGE 1.5IN As Ordered ONE (08:55)
[2024-11-02] MEDS ORDERED: fentaNYL 100 MCG/2 ML INJECTION IV PRN (09:10)
[2024-11-02] MEDS ORDERED: ONDANSETRON 4MG 2ML VIAL IV PRN (09:10)
[2024-11-02] MEDS: THROMBIN 5,000 UNITS VIAL As Ordered ONE (09:21)
[2024-11-02 09:57] VITALS: BP 144/84; TEMP 97.3; O2SAT 97
== END 2024-11-02 10:22 | disposition home or self-care (01) ==
LOC: M SDC 06:55
PROVIDERS: ATTEND Internal Medicine Pulmonary Disease
DX: J84.9 Interstitial pulmonary disease, unspecified (principal); Z88.2 Allergy status to sulfonamides; Z88.8 Allergy status to other drugs, medicaments and biological substances
CPT/HCPCS: 31652; 71045; 88305; J0171; J1100; J2250; J2405; J3010

== ENCOUNTER 2024-11-30 06:05 | Day surgery (SDC) | payer MEDICARE ==
[~2024-11-30] VITALS: Ht 180.3 cm; Wt 108.8 kg
[~2024-11-30 06:05] MED LIST changes: +MAGN400C PO
[2024-11-30] MEDS ORDERED: NS (Normal Saline) 0.9% 1,000 ML IV SCH ×2 (06:25→10:05)
[2024-11-30] MEDS ORDERED: ONDANSETRON 4MG 2ML VIAL As Ordered ONE (06:55)
[2024-11-30] MEDS ORDERED: propofoL 200 MG/20 ML VIAL As Ordered ONE (06:55)
[2024-11-30] MEDS ORDERED: LIDOCAINE 2% 100MG/5ML SDV (FOR ANES.) As Ordered ONE (06:55)
[2024-11-30] MEDS ORDERED: SUGAMMADEX SODIUM 500 MG/5 ML VIAL (BRIDION) As Ordered ONE (06:55)
[2024-11-30] MEDS ORDERED: ROCURONIUM BROMIDE 50MG/5ML VIAL As Ordered ONE (06:55)
[2024-11-30] MEDS ORDERED: fentaNYL 100 MCG/2 ML INJECTION As Ordered ONE (06:59)
[2024-11-30] MEDS ORDERED: MIDAZOLAM INJ 2MG/2ML VIAL As Ordered ONE (06:59)
[2024-11-30] MEDS: CETACAINE SPRAY 5GM As Ordered ONE (07:47)
[2024-11-30] MEDS ORDERED: ACETAMINOPHEN 1000MG/100ML IV BAG As Ordered ONE (07:48)
[2024-11-30] MEDS: EPINEPHrine 1MG/10ML SYRINGE 1.5IN As Ordered ONE (07:48)
[2024-11-30] MEDS: LIDOCAINE 4% TOPICAL SOLN 50 ML BTL As Ordered ONE (07:55)
[2024-11-30] MEDS: THROMBIN 20,000 UNITS KIT As Ordered ONE (07:55)
[2024-11-30] MEDS: LIDOCAINE VISCOUS 2% SOLN 15ML UDC As Ordered ONE (07:55)
[2024-11-30] MEDS: LIDOCAINE 1% SDV 30ML VIAL As Ordered ONE (07:55)
[2024-11-30] MEDS ORDERED: ePHEDrine SULFATE 25 MG/5 ML(5MG/ML) SYRINGE As Ordered ONE (08:00)
[2024-11-30] MEDS ORDERED: GLYCOPYRROLATE INJ 0.2 MG/ML 2 ML VIAL As Ordered ONE (08:44)
[2024-11-30] MEDS: THROMBIN 5,000 UNITS VIAL As Ordered ONE (10:03)
[2024-11-30] MEDS ORDERED: fentaNYL 100 MCG/2 ML INJECTION IV PRN (10:05)
[2024-11-30] MEDS ORDERED: ONDANSETRON 4MG 2ML VIAL IV PRN (10:05)
[2024-11-30] MEDS ORDERED: HYDROMORPHONE HCL 0.5 MG/ 0.5 ML SYRINGE IV PRN (10:05)
[2024-11-30] MEDS ORDERED: oxyCODONE 5MG TAB PO PRN (10:05)
[2024-11-30 11:45] VITALS: BP 144/92; TEMP 97.8; O2SAT 93
== END 2024-11-30 11:45 | disposition home or self-care (01) ==
LOC: M SDC 06:05
PROVIDERS: ATTEND Internal Medicine Pulmonary Disease
DX: R91.8 Other nonspecific abnormal finding of lung field (principal); I12.9 Hypertensive chronic kidney disease with stage 1 through stage 4 chronic kidney disease, or unspecified chronic kidney disease; N18.30 Chronic kidney disease, stage 3 unspecified; E11.9 Type 2 diabetes mellitus without complications; E78.5 Hyperlipidemia, unspecified; E03.9 Hypothyroidism, unspecified; Z86.73 Personal history of transient ischemic attack (TIA), and cerebral infarction without residual deficits; F17.210 Nicotine dependence, cigarettes, uncomplicated; J44.9 Chronic obstructive pulmonary disease, unspecified; Z79.82 Long term (current) use of aspirin; Z79.51 Long term (current) use of inhaled steroids; N40.0 Benign prostatic hyperplasia without lower urinary tract symptoms; G47.33 Obstructive sleep apnea (adult) (pediatric); Z88.8 Allergy status to other drugs, medicaments and biological substances
CPT/HCPCS: 31625; 31635; 71045; 88305; J0131; J0171; J1100; J1596; J2250; J2405; J3010